=== PATIENT | female | born 1960 | race Caucasian/White ===

== ENCOUNTER → 2018-03-25 15:32 | Outpatient (CLI) | payer OTHER, SELFPAY | PROVIDERS: Family Provider Internal Medicine; PCP Internal Medicine; Referring Provider Otolaryngology Otolaryngology/Facial Plastic Surgery; Visit Provider Otolaryngology Otolaryngology/Facial Plastic Surgery | DX: J32.9 Chronic sinusitis, unspecified (principal) | CPT/HCPCS: 87070; 87205 ==

== ENCOUNTER 2020-05-02 07:27 | Outpatient (RCR) | payer OTHER, SELFPAY ==
[2016-12-10 21:54] VITALS: BMI 50.9
[2020-05-02] MEDS: COVID-19 VACC, MRNA(PFIZER)/PF 30 MCG/0.3 ML SYRINGE IM (10:30)
[2020-05-23] MEDS: COVID-19 VACC, MRNA(PFIZER)/PF 30 MCG/0.3 ML SYRINGE IM (10:50)
== END 2020-07-25 23:59 ==
LOC: IMMUN 07:27
PROVIDERS: PCP Internal Medicine; Referring Provider Family Medicine; Visit Provider Family Medicine
DX: Z23 Encounter for immunization (principal)
CPT/HCPCS: 0001A; 0002A; 91300

== ENCOUNTER 2021-02-02 10:36 | Emergency (ER) | payer OTHER, SELFPAY ==
[2021-02-02 10:37] VITALS: BP 142/72; PULSE 105; RESP 22; TEMP 36.6; O2SAT 94; BMI 54.0
--- NOTE | 2021-02-02 10:49 | EDS_ITS ---
HPI History of Present Illness Chief Complaint: Lower Extremity Injury Detail of Chief Complaint: Fall with injury to lower extremities Informant: patient Narrative Narrative: Patient presents to the emergency department via EMS after sustaining a fall. Patient states that she was trying to get into her family members vehicle who was going to take her to the [facility] [employer] as she has had some ulcerations to her lower extremities. Patient had a hard time getting into the vehicle so she was trying to get back into the house and onto her scooter when she states that her legs gave out and she fell. Patient complains of pain to both hips and both knees as well as bleeding from her left foot. She complains of pain in her left foot. She denies tracking her head or loss of consciousness. She denies any other complaints. PFSH PFSH Home Medications furosemide 40 mg PO BIDLX 07/15/13 [History Last Taken Unknown] gabapentin 200 mg PO TIDCM 07/15/13 [History Last Taken Unknown] ibuprofen 600 mg PO Q6H PRN PRN #30 tablet 07/15/13 [Rx Last Taken Unknown] levothyroxine 200 mcg PO DAILY 07/15/13 [History Last Taken Unknown] metoprolol tartrate 25 mg PO DAILY 07/15/13 [History Last Taken Unknown] multivitamin with folic acid [Thera] 1 tab PO DAILY 07/15/13 [History Last Taken Unknown] potassium chloride [Klor-Con M20] 20 meq PO DAILY 07/15/13 [History Last Taken Unknown] spironolactone 25 mg PO DAILY 07/15/13 [History Last Taken Unknown] gabapentin 200 mg PO QHS PRN 12/10/16 [History Last Taken Unknown] letrozole [Femara] 2.5 mg PO DAILY 12/10/16 [History Last Taken Unknown] Allergy/AdvReac Type Severity Reaction Status Date / Time diphenhydramine HCl Allergy HEART Verified 02/02/21 10:37 [From Benadryl] RACES levofloxacin [From Levaquin] Allergy HEART Verified 02/02/21 10:37 RACE AND FEELS SOB oxytocin [From Pitocin] AdvReac FLOATING Verified 02/02/21 10:37 FEELING ENVIROMENTAL AdvReac Other Uncoded 02/02/21 10:37 Social History Smoking Status: Former smoker ROS ROS ED Constitutional Constitutional ED: Reports systems reviewed and no addt'l complaints, except as documented; Denies body ache(s), change in weight or chills Eyes Eyes: Denies acute decrease in peripheral vision, change in vision, double vision or loss of vision ENT ENT ED: Reports none; Denies ear pain, lip swelling, loss taste/smell, neck pain, otalgia or sore throat Cardiovascular Cardiovascular: Reports none; Denies abdominal pain, chest pain with activity, leg edema, lightheadedness, palpitations, rapid heart rate or syncope Respiratory/Chest Respiratory/Chest: Reports none; Denies change in mental status, dry cough, dyspnea, hemoptysis, shortness of breath at rest or shortness of breath with exertion Gastrointestinal Gastrointestinal: Reports none; Denies abdominal pain, change in stool character, diarrhea, hematemesis, hematochezia, melena, rectal bleeding or vomiting Genitourinary Genitourinary ED: Reports none; Denies abdominal discomfort, anuria, dysuria, genital pain or polyuria Musculoskeletal Musculoskeletal: Reports none and other Details: Bilateral hip and knee pain as well as left foot pain ; Denies arthralgias, back pain, difficulty walking, extremity pain, muscle weakness or myalgias Integumentary Reports none; Denies abscess or rash Neurologic Neurologic: Reports none; Denies abnormal gait, confusion, focal weakness, frequent falls, headache(s), loss of vision, numbness, paresthesias, radicular pain, vertigo or weakness Psychiatric Psychiatric: Reports systems reviewed and no addt'l complaints, except as docum ented and none; Denies behavioral changes, confusion, difficulty concentrating, hallucinations, suicidal ideation, tactile hallucinations or visual hallucinations Endocrine Endocrinology: Denies none, cold intolerance, excessive sweating, fatigue or heat intolerance Hematologic/Lymphatic Hematologic/Lymphatic: Reports none; Denies anemia, easy bleeding or easy bruising Allergic/Immunologic Allergic/Immunologic ED: Denies as per HPI, none, lip swelling, mouth swelling, throat swelling, tongue swelling or hives EXAM Physical Exam Const Vital Signs: 02/02/21 10:37 02/02/21 13:23 Temperature 97.9 F Temperature Source Oral Pulse Rate 105 H 96 Respiratory Rate 22 H Blood Pressure 142/72 H 121/64 H Blood Pressure Mean 95 83 Pulse Ox 94 91 Oxygen Delivery Method Room Air Nasal Cannula Oxygen Flow Rate (L/min) 4 Positive well nourished and well developed General Appearance ED: well developed and NAD HEENT Reports TM's clear and moist mucous membranes normocephalic and atraumatic; Negative for trauma or tenderness Tympanic Membrane ED: Yes TM's clear Eyes PERRL and EOMs intact bilaterally General Eye ED: Negative for pale conjunctiva or scleral icterus Neck no lymphadenopathy, supple and no JVD General: Negative for tenderness Chest Wall inspection of chest normal and palpation of chest normal Chest: Negative for tenderness Resp normal respiratory effort and clear to auscultation bilaterally Effort and Inspection: Negative for respiratory distress or pain with movement Auscultation: Negative for rhonchi, wheezes or diminished lung sounds Cardio regular rate, regular rhythm, S1 normal heart sound, S2 normal heart sound and no murmurs Peripheral Pulses: pulses 2+ throughout GI normal to inspection, nondistended, normoactive bowel sounds, soft to palpation, non-tender, non-distended and no masses GI Narrative: Patient morbidly obese Back/Spine no CVA tenderness and no thoracic nor lumbar tenderness Extremity normal to inspection General Extremety ED: Negative for edema General Extremity: Negative for edema Neuro oriented x3, CN's II-XII intact bilaterally, no sensory deficits noted and gait normal Sensorium / Orientation: awake, alert, oriented to person, oriented to place and oriented to time Motor Exam: strength 5/5 throughout and strength abnormal Psych mental status grossly normal Skin no wounds Skin Narrative: Patient has thickening of the skin of both lower extremities from below the knee down to the ankles. Patient has tenderness diffusely about both left hips with no shortening or rotational deformity noted. Patient has pain with palpation of bilateral knees without any effusions noted. Limited range of motion secondary to pain bilaterally. Patient has diffuse tenderness over the left foot. She has superficial skin avulsion to the plantar aspect of the first MTP joint. No lacerations otherwise. Neurovascular intact. MDM MDM MDM Narrative Medical decision making narrative: Patient will have her wound cleansed on her left foot and clean dressings will be applied. Patient was given 1 dose of [place] p.o. Patient will continue with her meds at home. Patient to follow-up with her primary care physician in 3 to 5 days. Patient is to reschedule her dermatology appointment. Lab Data Attestation: I reviewed the patient's lab results. Radiography Diagnostic Testing: Clinical Impression(s) from Imaging Studies Foot X-Ray 02/02/21 12:37 Hip/Pelvis X-Ray 02/02/21 12:37 Knee X-Ray 02/02/21 12:37 Ribs w/Chest X-Ray 02/02/21 12:37 X-rays of left ribs and PA chest obtained interpreted by myself as no acute rib fractures and chronic interstitial lung changes. Radiology was in agreement. Patient had left foot x-rays interpreted by myself as no acute fractures. Radiology in agreement. Patient had x-rays of the bilateral hips as well as pelvis which were interpreted by myself as no acute fractures. Radiology in agreement. Patient also had x-rays of bilateral knees which were interpreted by myself as no acute fractures and did show degenerative changes. Radiology in agreement. Discharge Plan Triage Chief Complaint: Lower Extremity Injury ED Provider: Fadia Rincon Dx/Rx/DC Orders Clinical Impression: Fall, Sprain of foot, left, Hip strain, Knee sprain Instructions: ED Foot Sprain, ED Hip Strain, ED Knee Sprain, ED Skin Avulsion Prescriptions: No Action furosemide 40 MG tablet 40 mg PO BIDLX RF: 0 spironolactone 25 MG tablet 25 mg PO DAILY RF: 0 potassium chloride [Klor-Con M20] 20 MEQ Tab.Er.Prt 20 meq PO DAILY RF: 0 levothyroxine 150 MCG tablet 200 mcg PO DAILY RF: 0 gabapentin 100 MG capsule 200 mg PO TIDCM RF: 0 metoprolol tartrate 25 MG tablet 25 mg PO DAILY RF: 0 multivitamin with folic acid [Thera] 1 TABLET tablet 1 tab PO DAILY RF: 0 ibuprofen 600 MG tablet 600 mg PO Q6H PRN PRN (Reason: Pain) Qty: 30 RF: 0 gabapentin 100 MG capsule 200 mg PO QHS PRN (Reason: Pain) RF: 0 letrozole [Femara] 2.5 MG tablet 2.5 mg PO DAILY RF: 0 Primary Care Provider: Lidya Mathias Referrals: Lidya Mathias MD [Primary Care Provider] - 3-5 Days Disposition Disposition: Home, Self Care
[2021-02-02] MEDS: HYDROcodone Bitartrate/Apap 5/325 Tablet PO (11:20)
[2021-02-02] MEDS: Diphth,Pertuss(Acell),Tet Vac 0.5 ML Vial IM (11:21)
--- NOTE | 2021-02-02 11:32 | ED.RN ---
Patient did not tolerate laying flat for xray, came back from radiology to be medicated prior to trying to complete films.
--- NOTE | 2021-02-02 12:37 | RAD_ITS ---
History: Trauma Left foot 2 views: Findings. No acute fracture or dislocation. No joint space abnormality. Posterior calcaneal enthesopathy. Soft tissue swelling noted. No radiopaque foreign body. IMPRESSION: Soft tisuue swelling. at 1310 Reported and signed by: Kevon Goodwin MD Electronically Signed: Kevon Goodwin MD at 13:08 EST Tel , Service support , RAD/Foot 2 Views
--- NOTE | 2021-02-02 12:37 | RAD_ITS ---
History: rib pain Chest and left ribs 5 views: Findings: Diffuse interstitial pulmonary densities noted which may represent chronic fibrosis. Cardiomediastinal silhouette is normal. No pneumothorax or hydrothorax. No rib fracture identified. IMPRESSION: Interstitial lung disease which may represent chronic fibrosis. Intact left ribs. at 1319 Reported and signed by: Kevon Goodwin MD Electronically Signed: Kevon Goodwin MD at 13:18 EST Tel , Service support , RAD/Ribs Uni Min 3V w/PA Chest
--- NOTE | 2021-02-02 12:37 | RAD_ITS ---
History: Trauma AP pelvis and bilateral hips, 5 views: Findings: No fracture or subluxation. Joint spaces and soft tissues are normal. IMPRESSION: No acute abnormality. at 1321 Reported and signed by: Kevon Goodwin MD Electronically Signed: Kevon Goodwin MD at 13:19 EST Tel , Service support , RAD/Hips B/L min 2 views w/ Pelvis
--- NOTE | 2021-02-02 12:37 | RAD_ITS ---
History: Trauma Left knee 2 views: Findings: No acute fracture, subluxation or joint effusion. Marked narrowing of the compartments of the knee joint associated with osteophytosis. IMPRESSION: No acute bone or joint abnormality. Advanced osteoarthritic changes. at 1318 Reported and signed by: Kevon Goodwin MD Electronically Signed: Kevon Goodwin MD at 13:17 EST Tel , Service support , RAD/Knee 1 or 2 Views
--- NOTE | 2021-02-02 12:37 | RAD_ITS ---
History: Trauma Right knee 2 views: Findings: No acute fracture, subluxation or joint effusion. Significant narrowing of the medial and lateral knee joint compartments. Moderate bony hypertrophy. IMPRESSION: No acute abnormality. Prominent osteoarthritic changes. at 1336 Reported and signed by: Kevon Goodwin MD Electronically Signed: Kevon Goodwin MD at 13:35 EST Tel , Service support , RAD/Knee 1 or 2 Views
[2021-02-02 13:23] VITALS: BP 121/64; PULSE 96; O2SAT 91
[2021-02-02 14:00] VITALS: PULSE 94; O2SAT 91
== END 2021-02-02 14:26 | disposition home or self-care (01) ==
PROVIDERS: Emergency Provider Emergency Medicine; PCP Internal Medicine
DX: S93.602A Unspecified sprain of left foot, initial encounter (principal); S83.92XA Sprain of unspecified site of left knee, initial encounter; S76.019A Strain of muscle, fascia and tendon of unspecified hip, initial encounter; M25.561 Pain in right knee; Z23 Encounter for immunization; V48.4XXA Person boarding or alighting a car injured in noncollision transport accident, initial encounter; Y93.9 Activity, unspecified; Y92.9 Unspecified place or not applicable; Y99.9 Unspecified external cause status; Z79.890 Hormone replacement therapy; Z79.899 Other long term (current) drug therapy; E66.01 Morbid (severe) obesity due to excess calories; Z87.891 Personal history of nicotine dependence
CPT/HCPCS: 71101; 73521; 73560; 73620; 90715; 99285

== ENCOUNTER 2021-02-06 17:07 | Inpatient (IN) | payer OTHER, SELFPAY ==
[2021-02-06] VITALS (7 sets, daily range): BP systolic 130–151; BP diastolic 63–84; PULSE 82–87; RESP 20–29; TEMP 36.4–37.4; O2SAT 93–99; BMI 58.3; BMI 54.3
--- NOTE | 2021-02-06 17:43 | EKG12_ITS ---
Test Reason : Blood Pressure : / mmHG Vent. Rate : 080 BPM Atrial Rate : 080 BPM P-R Int : 156 ms QRS Dur : 102 ms QT Int : 392 ms P-R-T Axes : 056 -65 019 degrees QTc Int : 452 ms Normal sinus rhythm Left axis deviation Low voltage QRS Incomplete left bundle branch block Abnormal ECG Confirmed by COOKIE RIZO, TERRENCE ([id number]), metropolitan editor BOBBI NEVAREZ ([id number]) on 02/12/2021 10:21:13 AM Referred By: BORIS Confirmed By:TERRENCE GARY MD
--- NOTE | 2021-02-06 17:46 | EDS_ITS ---
HPI History of Present Illness Chief Complaint: Shortness of Breath Informant: patient and family Onset/Context/Timing Onset: Days Context: gradual Timing: Continuous Quality: Positive for Dyspnea on exertion and Wheezing Current Severity: Mild Maximum Severity: Mild Worsened by: Exertion, Lying flat and Coughing Associated Symptoms cough Chest Pain: Positive for Sharp Narrative Narrative: 61-year-old female history of diabetes, prior breast cancer, prior uterine cancer, prior DVTs and diabetic neuropathy. Patient tested Covid positive recently after her tested positive. She has been vaccinated with [employer] x2 has not received her booster as of yet. States that she has become more short of breath. Has left rib pain from recent fall. Denies any hemoptysis. PE Risk Factors: Positive for Prior DVT or PE and Recent immobilization; Negative for Cancer, OCP + Smoking + > 35, Recent surgery and Recent travel Prior similar symptoms: No Recent Illness/Hospitalization: Yes PFSH PFS Medical History Cancer Diabetes DVT (deep venous thrombosis) Hypertension Hypothyroidism Non-smoker On home oxygen therapy Home Medications furosemide 40 mg PO BIDLX 07/15/13 [History Last Taken Unknown] gabapentin 200 mg PO TIDCM 07/15/13 [History Last Taken Unknown] ibuprofen 600 mg PO Q6H PRN PRN #30 tablet 07/15/13 [Rx Last Taken Unknown] levothyroxine 200 mcg PO DAILY 07/15/13 [History Last Taken Unknown] metoprolol tartrate 25 mg PO DAILY 07/15/13 [History Last Taken Unknown] multivitamin with folic acid [Thera] 1 tab PO DAILY 07/15/13 [History Last Taken Unknown] potassium chloride [Klor-Con M20] 20 meq PO DAILY 07/15/13 [History Last Taken Unknown] spironolactone 25 mg PO DAILY 07/15/13 [History Last Taken Unknown] gabapentin 200 mg PO QHS PRN 12/10/16 [History Last Taken Unknown] letrozole [Femara] 2.5 mg PO DAILY 12/10/16 [History Last Taken Unknown] Allergy/AdvReac Type Severity Reaction Status Date / Time diphenhydramine HCl Allergy HEART Verified 02/02/21 10:37 [From Benadryl] RACES levofloxacin [From Levaquin] Allergy HEART Verified 02/02/21 10:37 RACE AND FEELS SOB oxytocin [From Pitocin] AdvReac FLOATING Verified 02/02/21 10:37 FEELING ENVIROMENTAL AdvReac Other Uncoded 02/02/21 10:37 Surgical History History of reduction surgery of left breast Social History Smoking Status: Never smoker ROS ROS ED ROS Narrative Dyspnea, myalgias, fevers and chills. Review of Systems ROS Unobtainable: Denies due to encephalopathy Constitutional Constitutional ED: Reports chills and fever(s) Eyes Eyes: Denies change in vision ENT ENT ED: Denies ear pain or sore throat Cardiovascular Cardiovascular: Reports chest pain; Denies palpitations or racing heartbeat Respiratory/Chest Respiratory/Chest: Reports cough and dyspnea Gastrointestinal Gastrointestinal: Denies abdominal pain, diarrhea, nausea or vomiting Genitourinary Genitourinary ED: Denies dysuria Musculoskeletal Musculoskeletal: Reports myalgias Integumentary Reports rash Neurologic Neurologic: Reports headache(s) Psychiatric Psychiatric: Denies depression Endocrine Endocrinology: Denies polyuria Hematologic/Lymphatic Hematologic/Lymphatic: Denies easy bruising Allergic/Immunologic Allergic/Immunologic ED: Denies urticaria EXAM Physical Exam Narrative Exam Narrative: 61-year-old female pulse ox was 73% at home when she was on room air. Currently its 98% on 4 L. She does not look septic or toxic. H EENT exam druggies memories. Neck nontender. Lungs few scattered wheezes. Expiratory only. Heart regular rhythm rate about 85 no murmur. Abdomen morbidly obese but soft nontender normal bowel sounds no peritoneal signs. Moving all 4 extremities. Chronic bilateral lymphedema. Neurologically she is awake and alert. Moving all 4 extremities. Const Vital Signs: 02/06/21 17:08 02/06/21 17:12 02/06/21 18:22 Temperature 98.6 F 98.6 F 99.3 F H Temperature Source Oral Oral Oral Pulse Rate 85 84 84 Respiratory Rate 29 H 24 H 26 H Respiratory Effort Short of Breath Respiratory Depth Normal Respiratory Pattern Normal Blood Pressure 132/75 H 132/75 H 135/68 H Blood Pressure Mean 94 94 90 Pulse Ox 98 99 95 Oxygen Delivery Method Nasal Cannula Nasal Cannula Nasal Cannula Oxygen Flow Rate (L/min) 4 4 5 02/06/21 19:22 02/06/21 20:22 Temperature 97.6 F L 98 F Temperature Source Oral Oral Pulse Rate 83 87 Respiratory Rate 24 H 22 H Respiratory Effort Respiratory Depth Respiratory Pattern Blood Pressure 135/65 H 139/63 H Blood Pressure Mean 88 88 Pulse Ox 96 93 Oxygen Delivery Method Nasal Cannula Nasal Cannula Oxygen Flow Rate (L/min) 5 5 Positive well nourished, well developed and obese; Negative for cachectic, contractures or unkempt General Appearance ED: well developed and NAD; Negative for unkempt, cachectic, contractures or pallor Nutritional Appearance: obese; Negative for cachectic HEENT Reports dry mucous membranes atraumatic; Negative for trauma or tenderness Mouth ED: Yes dry mucous membranes Mouth: dry mucous membranes Eyes PERRL and EOMs intact bilaterally Neck no lymphadenopathy, supple and no JVD General: Negative for tenderness Resp normal respiratory effort and No clear to auscultation bilaterally Auscultation: wheezes; Negative for rales or rhonchi Cardio regular rate, regular rhythm, S1 normal heart sound, S2 normal heart sound and no murmurs GI non-tender, non-distended and no masses Auscultation: normoactive bowel sounds Palpation: soft; Negative for tender, guarding or rebound tenderness present Back/Spine no CVA tenderness and normal to inspection General Back: Negative for CVA tenderness or tenderness Extremity Negative for normal to inspection Extremity Narrative: Chronic bilateral lymphedema. General Extremety ED: Yes edema; Negative for tenderness General Extremity: edema Neuro oriented x3 Sensorium / Orientation: alert, oriented to person, oriented to place, oriented to time and lethargic; Negative for orientation impaired or confused Motor Exam: strength 5/5 throughout Psych Appearance: Negative for unkempt Skin no wounds General Skin Exam: Negative for jaundice or pallor Lesions: no lesions Rashes: no rashes MDM MDM MDM Narrative Medical decision making narrative: 61-year-old morbidly obese female with a history of diabetes and prior DVTs. If she is stable enough to be discharged home she will at least need home O2 if not admitted. Screening labs are being obtained along with a chest x-ray D-dimer. She will be given IV Decadron. Clinically she looks a little dehydrated she will be given half a liter normal saline. Repeat exam patient is on 5 L of oxygen. Lab Data Attestation: I reviewed the patient's lab results. Lab results narrative: CBC shows a white count of 6. Hemoglobin of 10.2. Which is decreased from her most recent blood count with a hemoglobin of 13.2. Platelet count 131. D-dimer elevated 1.37. Electrolytes show a gap of 4 normal BUN and creatinine. Glucose 145. Liver enzymes are unremarkable as is troponin. CT of the chest is obtained due to the elevated D-dimer. Consistent with Covid pneumonitis but no pulmonary emboli. Read by the radiologist and reviewed by me. Labs: Laboratory Results - last 24 hr 02/06/21 02/06/21 02/06/21 17:55 17:55 17:55 WBC 6.0 RBC 3.52 L Hgb 10.2 L Hct 35.1 L MCV 99.7 H MCH 29.0 MCHC 29.1 L RDW Std Deviation 57.9 H RDW Coeff of Danielle 16.1 H Plt Count 131 L MPV 11.1 Immature Gran % (Auto) 0.800 Neut % (Auto) 81.6 H Lymph % (Auto) 10.0 L Swain % (Auto) 6.0 Eos % (Auto) 1.3 Baso % (Auto) 0.3 Absolute Neuts (auto) 4.9 Absolute Lymphs (auto) 0.60 L Nucleated RBC % 0 Differential Comment SEE COMMENT Platelet Estimate SLT DEC RBC Morphology N CHROM Anisocytosis RARE Macrocytosis RARE D-Dimer Quant (PE/DVT) 1.37 H* Sodium 140 Potassium 4.2 Chloride 103 Carbon Dioxide 33.0 H Anion Gap 4 L BUN 13 Creatinine 0.87 Estim Creat Clear Calc 71.57 Est GFR (MDRD) Af Amer 84 Est GFR (MDRD) Non-Af 70 BUN/Creatinine Ratio 14.9 Glucose 145 H Calcium 8.2 L Total Bilirubin 0.50 AST 27 ALT 29 Alkaline Phosphatase 72 Troponin I High Sens 33 Total Protein 7.4 Albumin 2.9 L Globulin 4.5 H Albumin/Globulin Ratio 0.6 L Radiography Chest X-Ray - ED: 1 View, Read by ED Physician, Right Infiltrate and Left Infiltrate Diagnostic Testing: Clinical Impression(s) from Imaging Studies Chest X-Ray 02/06/21 18:20 IMPRESSION: Findings are consistent with bilateral multifocal pneumonia. Electronically Signed: Ketty South MD at 19:37 EST , Service support , Chest CTA 02/06/21 18:33 IMPRESSION: 1. No CTA demonstrated pulmonary embolism or arterial dissection. 2. Mediastinal and hilar lymphadenopathy. 3. Multifocal airspace disease suggests multifocal pneumonia. Suggest follow-up after treatment to exclude underlying neoplasia. Electronically Signed: Ketty South MD at 20:46 EST , Service support , Chest x-ray shows bilateral infiltrates consistent with Covid pneumonitis. Also some interstitial edema. Single view interpreted by myself. Rhythm Strip Rhythm Strip: Sinus Rhythm Rate: 80 Ectopy: None EKG Initial EKG: Attestation: I personally reviewed and interpreted this EKG as follows: Interpretation: Sinus Rhythm and No Acute Injury Pattern Comments: Normal sinus rhythm rate 80 no acute signs of DC or ischemia. Low voltage. Prior EKG tracings: not available for review Discharge Plan Triage Chief Complaint: Shortness of Breath ED Provider: Andrei Martínez Dx/Rx/DC Orders Clinical Impression: COVID-19, Pneumonitis, Hypoxia, History of morbid obesity, History of diabetes mellitus Prescriptions: No Action furosemide 40 MG tablet 40 mg PO BIDLX RF: 0 spironolactone 25 MG tablet 25 mg PO DAILY RF: 0 potassium chloride [Klor-Con M20] 20 MEQ tablet,ER particles/crystals 20 meq PO DAILY RF: 0 levothyroxine 150 MCG tablet 200 mcg PO DAILY RF: 0 gabapentin 100 MG capsule 200 mg PO TIDCM RF: 0 metoprolol tartrate 25 MG tablet 25 mg PO DAILY RF: 0 multivitamin with folic acid [Thera] 1 TABLET tablet 1 tab PO DAILY RF: 0 ibuprofen 600 MG tablet 600 mg PO Q6H PRN PRN (Reason: Pain) Qty: 30 RF: 0 gabapentin 100 MG capsule 200 mg PO QHS PRN (Reason: Pain) RF: 0 letrozole [Femara] 2.5 MG tablet 2.5 mg PO DAILY RF: 0 Primary Care Provider: Lidya Mathias Referrals: Lidya Mathias MD [Primary Care Provider] - Disposition Disposition: Acute Care [facility]
[2021-02-06 18:05] LABS: Absolute Neutrophil Count 4.9 X10^3/uL (2.0-7.7); Basophil# 0.02 X10^3/uL; Basophil% 0.3 % (0-1); Eosinophil# 0.08 X10^3/uL; Eosinophils% 1.3 % (0-5); Hematocrit 35.1 % (37-47); Hemoglobin 10.2 g/dL (12.0-15.0); Mean Corp Hgb Conc 29.1 g/dL (32-36); Mean Corpuscular Volume 99.7 fL (81-99); Mean Platelet Vol. 11.1 fl (6.2-12.0); Monocyte# 0.36 X10^3/uL; NRBC Flagged by Analyzer 0 % (0-5); Neutrophil # 4.89 X10^3/uL (2.7-7.7); Neutrophil % 81.6 % (47-70); POSITIVE DIFFERENTIAL YES; Platelet Count 131 K/mm3 (150-450); RBC Distribution Width CV 16.1 % (11.6-14.6); RBC Distribution Width SD 57.9 fl (35.1-43.9); Red Blood Count 3.52 M/mm3 (4.2-5.4)
[2021-02-06 18:09] LABS: Differential Indicated SCAN CRITERIA MET
[2021-02-06 18:20] LABS: ALB/GLOB Ratio 0.6 RATIO (0.9-2.4); AST(SGOT) 27 U/L (15-37); Alanine Aminotransfer ALT/SGPT 29 U/L (13-56); Albumin, Serum 2.9 g/dL (3.2-5.0); Alkaline Phosphatase 72 U/L (45-117); Anion Gap 4 (5-15); BUN 13 mg/dL (7-18); BUN/Creat Ratio 14.9 RATIO (10-20); Calcium,Total 8.2 mg/dL (8.5-10.1); Chloride 103 mmol/L (98-107); Creatinine, Serum 0.87 mg/dL (0.55-1.02); EST Glomerular Filtration Rate 70 mL/min (>60); Est Glom Filt Rate - Afr Amer 84 mL/min (>60); Estimated Creatinine Clearance 71.57 ml/min; Globulin 4.5 g/dL (2.2-4.2); Glucose 145 mg/dL (74-106); Potassium 4.2 mmol/L (3.5-5.1); Protein, Total 7.4 g/dL (6.4-8.2); Sodium Level 140 mmol/L (136-145); Troponin-I HS 33 pg/mL (3.0-54.0)
[2021-02-06] MEDS: dexAMETHasone 10 MG/ML Vial IV (18:20)
--- NOTE | 2021-02-06 18:20 | RAD_ITS ---
STUDY: X-RAY CHEST REASON FOR EXAM: Female, 61 years old patient with COVID infection and hypoxia. TECHNIQUE: Single AP portable view of the chest. COMPARISON: 02/02/2021. FINDINGS: Cardiac monitoring leads are present. Lungs are expanded. There are bilateral heterogeneous airspace consolidations in both lungs. There is no demonstrated pleural abnormality. There is mild cardiac enlargement. Normal mediastinum and jayesh. Normal visualized pulmonary arteries. There is atherosclerotic tortuosity of the aortic arch and descending thoracic aorta. There are diffuse degenerative changes of the visualized thoracic spine. Normal visualized ribs, clavicles, and shoulders. There is no demonstrated abnormality of the visualized soft tissue structures of the upper abdomen. RAD/Chest 1 View (Portable) IMPRESSION: Findings are consistent with bilateral multifocal pneumonia. Electronically Signed: Ketty South MD at 19:37 EST , Service support ,
[2021-02-06 18:28] LABS: D-Dimer Quantitative (DVT/PE) 1.37 FEU/ug/m (0.27-0.49)
[2021-02-06 18:31] LABS: Anisocytosis RARE; Macrocytosis RARE; Platelet Estimate SLT DEC (ADEQ); Red Cell Morphology N CHROM NORMAL (NORM C&C)
--- NOTE | 2021-02-06 18:33 | CT_ITS ---
STUDY: CTA CHEST REASON FOR EXAM: Female, 61 years old patient with hypoxia and elevated D-Dimer. RADIATION DOSAGE (If Supplied By Facility): CTDIvol = ( 25.73 ) mGy, DLP = ( 528.77 ) mGycm TECHNIQUE: The examination was performed with the intravenous administration of 100 ml of IV Isovue 370. Post-processing of the angiographic images was performed, with multiplanar reformation and 3D reconstruction. Individualized dose optimization techniques were used for this CT. COMPARISON: Prior comparable comparison studies are not available for review at this time. FINDINGS: Cardiac monitoring leads are present. The thyroid is enlarged. Patient has right-sided breast prosthesis. Normal enhancement of the main pulmonary artery and right and left pulmonary arteries. Normal enhancement of the bilateral peripheral pulmonary arteries. There is no demonstrated pulmonary embolism. There is prominence of the main pulmonary arteries without peripheral pulmonary vascular congestion. There is atherosclerotic tortuosity of the aortic arch and descending thoracic aorta. There is no demonstrated aortic dissection. There is cardiomegaly. There are calcifications of the coronary arteries. There may be enlarged subcarinal nodes. There are enlarged bilateral hilar lymph nodes. There is severe narrowing of the trachea at the level of the [place] suggesting chondromalacia. The mainstem bronchi are also small in caliber. There are multiple airspace consolidations in both lungs. Some areas appear somewhat nodular and associated metastasis cannot be excluded. Lungs are expanded. Normal pleura. There may be some enlarged accessory vessels in the chest wall. There are degenerative changes of thoracic spine. Normal visualized upper abdomen. CT/CTA Chest W/WO Contrast IMPRESSION: 1. No CTA demonstrated pulmonary embolism or arterial dissection. 2. Mediastinal and hilar lymphadenopathy. 3. Multifocal airspace disease suggests multifocal pneumonia. Suggest follow-up after treatment to exclude underlying neoplasia. Electronically Signed: Ketty South MD at 20:46 EST , Service support ,
[2021-02-06] MEDS: LORazepam 2 MG/ML Syringe 1 MG IV (19:00)
--- NOTE | 2021-02-06 20:25 | ED.RN ---
PATIENT UP TO BEDSIDE COMMODE. PATIENTS OXYGEN SATURATION DROPPED TO 84% ON 4L. ONCE PATIENT BACK IN BED OXYGEN SATURATION QUICKLY RETURNED TO LOW 90'S.
--- NOTE | 2021-02-06 21:10 | HP.PCM.HOS_ITS ---
HPI - General General Date of Admission: 02/06/21 HPI Narrative YASMANI MCLAIN, is a 61 F with a significant history of congestive heart failure; hypertension; diabetes mellitus and hypothyroidism who presents to the emergency department with progressive worsening Covid-like symptoms are started about a week ago. Of note patient has received 2 doses of Pfizer vaccination with last dose around April or May 2020. Reportedly she has not been able to receive the booster dose because of transportation issues. She reports a Covid-like symptoms of shortness of breath; productive cough; dy sgeusia; chills without fever. Her oxygen saturation on room air was about 73% so PCPs office was called and family was instructed to bring patient to come to the emergency department. Reportedly she fell a week before presentation and has pain at her left ribs. Patient reports blood at the rectal area. She denies blood in the stool. She thinks that the blood is from her hemorrhoids. Of note previously patient was on oxygen secondary pneumonia but she was weaned down to oxygen about a month prior to presentation. On this presentation at the the emergency department patient required oxygen. Of note patient's has been admitted to our hospital ([facility]) with COVID-19 pneumonia. Reportedly patient tested positive at [facility] 2 days before presentation. REPLACED BY [facility] Medical History Cancer Diabetes DVT (deep venous thrombosis) Hypertension Hypothyroidism Non-smoker On home oxygen therapy Home Medications furosemide 40 mg PO BIDLX 07/15/13 [History Last Taken Unknown] gabapentin 200 mg PO TIDCM 07/15/13 [History Last Taken Unknown] ibuprofen 600 mg PO Q6H PRN PRN #30 tablet 07/15/13 [Rx Last Taken Unknown] levothyroxine 200 mcg PO DAILY 07/15/13 [History Last Taken Unknown] metoprolol tartrate 25 mg PO DAILY 07/15/13 [History Last Taken Unknown] multivitamin with folic acid [Thera] 1 tab PO DAILY 07/15/13 [History Last Taken Unknown] potassium chloride [Klor-Con M20] 20 meq PO DAILY 07/15/13 [History Last Taken Unknown] spironolactone 25 mg PO DAILY 07/15/13 [History Last Taken Unknown] gabapentin 200 mg PO QHS PRN 12/10/16 [History Last Taken Unknown] letrozole [Femara] 2.5 mg PO DAILY 12/10/16 [History Last Taken Unknown] Allergy/AdvReac Type Severity Reaction Status Date / Time diphenhydramine HCl Allergy HEART Verified 02/02/21 10:37 [From Benadryl] RACES levofloxacin [From Levaquin] Allergy HEART Verified 02/02/21 10:37 RACE AND FEELS SOB oxytocin [From Pitocin] AdvReac FLOATING Verified 02/02/21 10:37 FEELING ENVIROMENTAL AdvReac Other Uncoded 02/02/21 10:37 Family History Other Diabetes Surgical History History of reduction surgery of left breast Social History Smoking Status: Never smoker ROS ROS Narrative Constitutional: Reports chills, fatigue and anorexia. Denies fever and change in weight Eyes: Denies blurry vision, change in eye color, change in vision, discharge from eye(s), double vision, erythema, eye pain, loss of vision or other HEENT: Denies abnormal hearing, dysphagia, ear pain, epistaxis, headache(s), hearing loss, nasal congestion, nasal discharge, post nasal drip, sinus pressure, sore throat or other Cardiovascular: Denies chest pain or palpitations. Denies dyspnea on exertion, orthopnea and paroxysmal nocturnal dyspnea Respiratory/Chest: Reports shortness of breath; cough, excessive phlegm production. Gastrointestinal: Reports blood from rectum. Denies abdominal pain, coffee ground emesis, constipation, diarrhea, dyspepsia, hematemesis, loose stools, melena, nausea, vomiting or other Genitourinary: Denies burning urination, difficulty urinating, dysuria, hematuria, nocturia, urinary frequency, urinary hesitancy, urinary incontinence, urinary urgency or other Musculoskeletal:Oozing from left leg. Denies arthralgias, back pain, joint cecilia n, joint stiffness, joint swelling, myalgias, neck pain or other Neurologic: Denies abnormal gait, abnormal speech, confusion, disequilibrium, dizziness, focal weakness, headache(s), numbness, paresthesias, seizure-like activity, seizures, syncope, tingling, tremor(s) or other Psychiatric: Denies anxiety, depression, homicidal ideation, suicidal ideation or other Endocrinology: Denies change in body appearance, cold intolerance, excessive sweating, heat intolerance, polydipsia, polyuria or other Hematologic/Lymphatic: Denies anemia, lymphadenopathy or other Integumentary: Denies rashes Allergic/Immunologic: Denies rhinitis, hives, eczema, asthma or other Vital Signs Vital Signs Vital Signs: 02/06/21 17:08 02/06/21 17:12 02/06/21 18:22 Temperature 98.6 F 98.6 F 99.3 F H Temperature Source Oral Oral Oral Pulse Rate 85 84 84 Respiratory Rate 29 H 24 H 26 H Respiratory Effort Short of Breath Respiratory Depth Normal Respiratory Pattern Normal Blood Pressure 132/75 H 132/75 H 135/68 H Blood Pressure Mean 94 94 90 Pulse Ox 98 99 95 Oxygen Delivery Method Nasal Cannula Nasal Cannula Nasal Cannula Oxygen Flow Rate (L/min) 4 4 5 02/06/21 19:22 02/06/21 20:22 Temperature 97.6 F L 98 F Temperature Source Oral Oral Pulse Rate 83 87 Respiratory Rate 24 H 22 H Respiratory Effort Respiratory Depth Respiratory Pattern Blood Pressure 135/65 H 139/63 H Blood Pressure Mean 88 88 Pulse Ox 96 93 Oxygen Delivery Method Nasal Cannula Nasal Cannula Oxygen Flow Rate (L/min) 5 5 Weight Weight: 184.6 kg Body Mass Index (BMI) 58.3 Physical Exam Narrative Physical exam: General: Morbidly obese Head: Normocephalic, atraumatic, no tenderness Eyes: PERRLA, EOMI ENT, no trauma, moist mucous membranes, no rhinorrhea Neck: Nontender, full range of motion, no spinal tenderness, deformities, step- off CVS: Regular rate and rhythm. S1-S2 present. No murmur, gallop or rub. Respiratory : Rales. chest wall nontender, no wheezing Abdomen: Soft, nontender, nondistended, normal bowel sounds, no masses : Deferred Back: Nontender, no CVA tenderness, no midline spinal tenderness, deformities, step-offs Extremities: Edema of left foot. Nontender full range of motion. Skin: Normal color, no trauma, abrasions Neuro: Alert, oriented, cranial nerves II through XII grossly intact. Psychiatry: Normal mood. Normal affect. Not depressed. Not anxious. Results Lab / Micro Data Result Diagrams: 02/06/21 17:55 02/06/21 17:55 Labs: Laboratory Results - last 24 hr 02/06/21 17:55: WBC 6.0, RBC 3.52 L, Hgb 10.2 L, Hct 35.1 L, MCV 99.7 H, MCH 29.0, MCHC 29.1 L, RDW Std Deviation 57.9 H, RDW Coeff of Danielle 16.1 H, Plt Count 131 L, MPV 11.1, Immature Gran % (Auto) 0.800, Neut % (Auto) 81.6 H, Lymph % (Auto) 10.0 L, [place] % (Auto) 6.0, Eos % (Auto) 1.3, Baso % (Auto) 0.3, Absolute Neuts (auto) 4.9, Absolute Lymphs (auto) 0.60 L, Nucleated RBC % 0, Differential Comment SEE COMMENT, Platelet Estimate SLT DEC, RBC Morphology N CHROM, Anisocytosis RARE, Macrocytosis RARE 02/06/21 17:55: D-Dimer Quant (PE/DVT) 1.37 H* 02/06/21 17:55: Sodium 140, Potassium 4.2, Chloride 103, Carbon Dioxide 33.0 H, Anion Gap 4 L, BUN 13, Creatinine 0.87, Estim Creat Clear Calc 71.57, Est GFR (MDRD) Af Amer 84, Est GFR (MDRD) Non-Af 70, BUN/Creatinine Ratio 14.9, Glucose 145 H, Calcium 8.2 L, Total Bilirubin 0.50, AST 27, ALT 29, Alkaline Phosphatase 72, Troponin I High Sens 33, Total Protein 7.4, Albumin 2.9 L, Globulin 4.5 H, Albumin/Globulin Ratio 0.6 L Rhythm Strip Rhythm Strip: Sinus Rhythm Rate: 80 Ectopy: None Radiology Impression Chest X-Ray 02/06/21 18:20 IMPRESSION: Findings are consistent with bilateral multifocal pneumonia. Electronically Signed: Ketty South MD at 19:37 EST , Service support , Chest CTA 02/06/21 18:33 IMPRESSION: 1. No CTA demonstrated pulmonary embolism or arterial dissection. 2. Mediastinal and hilar lymphadenopathy. 3. Multifocal airspace disease suggests multifocal pneumonia. Suggest follow-up after treatment to exclude underlying neoplasia. Electronically Signed: Ketty South MD at 20:46 EST , Service support , Assessment & Plan Assessment/Plan (1) Pneumonia due to COVID-19 virus: (2) Acute hypoxemic respiratory failure: (3) Anemia: QUALIFIERS: Anemia type: unspecified type Qualified Code(s): D64.9 - Anemia, unspecified PLAN: Covid pneumonia Reportedly hypoxic at urgent care today with oxygen saturation of 70%. At the emergency department patient required about 5 L of nasal cannula oxygen. No documented oxygen saturation on room air. Supplemental oxygen continued. Reported positive coronavirus test outpatient. Review of community records did not show Covid test. Rapid Covid antigen ordered inpatient. Chest x-ray and chest CTA independently interpreted showed bilateral multifocal pneumonia and agree radiologist interpretation. D-dimer is elevated at 1.37 like secondary to inflammation. Decadron ordered. GFR is more than 30; liver biochemistry is normal. Remdesivir ordered. Tylenol for fever Mucinex ordered . Trend CBC and CMP. Acute anemia/hemorrhoidal bleed. Her hemoglobin presentation was 10.2. Review of community records show that her hemoglobin on 11/27/2020 was 12.1 and on 10/23/2020 was 11.7. Ferritin and iron panel is consistent with iron deficiency anemia. Venofer ordered. Trend CBC. Protonix ordered. If hemoglobin is stable further work-up can be done after the patient is out of Covid precautions. Diabetes mellitus with polyneuropathy Patient with hyperglycemia on presentation Review of community records show that her A1c on 11/27/2020 was 7.5. With starting patient on Decadron anticipate that her blood glucose would be higher. Accu-Chek QA CHS with correction scale insulin ordered. Hypertension Blood pressure is not within goal Metoprolol, Lasix and spironolactone continued. Trend blood pressure and adjust blood pressure medications. Hypothyroidism Thyroid supplementation continued. History of congestive heart failure No echocardiogram on file. Currently hypoxic requiring oxygen supplementation.. Likely symptoms from Covid pneumonia. Lasix and spironolactone continued. DVT prophylaxis: SCD ordered. Chemical thromboprophylaxis held secondary to rectal hemorrhage. Charges/Coding Visit Charges Inpatient E&M: 23182 Init Hosp L3
--- NOTE | 2021-02-06 23:07 | PCS.PANDOC ---
PANDEMIC DOCUMENTATION INITIATED: Date: 02/06/2021 Time: 2300
[2021-02-06] MEDS: 0.9% Saline Lock 10 ML Syringe IV (23:35)
[2021-02-06] MEDS: Insulin Lispro 100 UNIT/ML INSULN.PEN SC (23:48)
[2021-02-07] VITALS (15 sets, daily range): BP systolic 133–154; BP diastolic 71–92; PULSE 78–90; RESP 20–24; TEMP 36.6–36.8; O2SAT 84–97
[2021-02-07 00:03] LABS: Ferritin 37 ng/mL (8-252); Iron 20 ug/dL (50-170); Iron Binding Capacity,Total 293 ug/dL (250-450); PERCENT IRON SATURATION 6.8 % (15.0-55.0)
--- NOTE | 2021-02-07 00:24 | NURSING ---
attempted to return call to pt's daughter, ysabel [phone], no answer and sent to an automated voicemail
[2021-02-07 01:09] LABS: Immature Platelet Fraction 6.9 % (1.0-7.9); Platelet Count 131 K/mm3 (150-450)
[2021-02-07 01:41] LABS: Bedside Glucose 247 mg/dL (70-110)
[2021-02-07] MEDS: guaiFENesin 1,200 MG Tablet 1200 MG PO (04:09)
[2021-02-07] MEDS: Nystatin Powder 15gm Bottle 1 APPLIC TOPICAL ×2 (04:16→22:00)
[2021-02-07] MEDS: Insulin Lispro 100 UNIT/ML INSULN.PEN SC ×3 (07:00→16:42)
[2021-02-07 07:05] LABS: Absolute Lymphocyte Count 0.47 X10^3/uL (0.83-4.51); Absolute Neutrophil Count 4.6 X10^3/uL (2.0-7.7); Hematocrit 36.3 % (37-47); Hemoglobin 10.7 g/dL (12.0-15.0); Lymphocyte # 0.47 X10^3/ul (0.83-4.51); Lymphocyte % 8.7 % (19-41); Mean Corp Hgb Conc 29.5 g/dL (32-36); Mean Corpuscular Hgb 29.2 pg (27.0-32.0); Mean Corpuscular Volume 99.2 fL (81-99); Mean Platelet Vol. 11.2 fl (6.2-12.0); Monocyte# 0.36 X10^3/uL; Monocyte% 6.6 % (0-10); NRBC Flagged by Analyzer 0 % (0-5); Neutrophil # 4.57 X10^3/uL (2.7-7.7); Neutrophil % 84.1 % (47-70); POSITIVE DIFFERENTIAL YES; Platelet Count 133 K/mm3 (150-450); RBC Distribution Width SD 57.4 fl (35.1-43.9); Red Blood Count 3.66 M/mm3 (4.2-5.4); White Blood Count 5.4 K/mm3 (4.4-11.0)
[2021-02-07 07:10] LABS: Differential Indicated SCAN CRITERIA MET
[2021-02-07 07:21] LABS: Bedside Glucose 217 mg/dL (70-110)
[2021-02-07 07:27] LABS: ALB/GLOB Ratio 0.6 RATIO (0.9-2.4); AST(SGOT) 28 U/L (15-37); Alanine Aminotransfer ALT/SGPT 35 U/L (13-56); Alkaline Phosphatase 74 U/L (45-117); Anion Gap 3 (5-15); BUN 13 mg/dL (7-18); BUN/Creat Ratio 17.1 RATIO (10-20); Calcium,Total 8.3 mg/dL (8.5-10.1); Chloride 102 mmol/L (98-107); Creatinine, Serum 0.76 mg/dL (0.55-1.02); EST Glomerular Filtration Rate 81 mL/min (>60); Est Glom Filt Rate - Afr Amer 99 mL/min (>60); Estimated Creatinine Clearance 81.93 ml/min; Globulin 4.8 g/dL (2.2-4.2); Glucose 246 mg/dL (74-106); Potassium 4.5 mmol/L (3.5-5.1); Protein, Total 7.8 g/dL (6.4-8.2); Sodium Level 138 mmol/L (136-145)
--- NOTE | 2021-02-07 08:18 | PCS.PANDOC ---
PANDEMIC DOCUMENTATION INITIATED: Date: 10/02/2020 Time: 190
[2021-02-07 08:45] LABS: Procalcitonin 0.09 ng/mL (0.00-0.09); Vitamin B12 140 pg/mL (211-911)
[2021-02-07] MEDS: Spironolactone 25 MG Tablet PO (08:54)
[2021-02-07] MEDS: Levothyroxine 100 MCG Tablet 200 MCG PO (08:54)
[2021-02-07] MEDS: Metoprolol Tartrate 25 MG Tablet PO (08:55)
[2021-02-07] MEDS: Potassium Chloride Oral Tablet 20 MEQ PO (08:55)
[2021-02-07] MEDS: Multivitamins,Therapeutic Tablet 1 TABLET PO (08:55)
[2021-02-07] MEDS: dexAMETHasone 4 MG Tablet 6 MG PO (08:56)
[2021-02-07] MEDS: Gabapentin 100 MG Capsule 200 MG PO ×3 (08:56→16:46)
[2021-02-07] MEDS: Furosemide 40 MG Tablet PO ×2 (08:56→16:46)
[2021-02-07] MEDS: Menthol/Lanolin/Calamine/Znox 113 GM Tube 1 APPLIC TOPICAL ×2 (08:57→21:50)
[2021-02-07] MEDS: Enoxaparin 30 MG/0.3 ML Syringe SC ×2 (09:26→21:51)
[2021-02-07] MEDS: 0.9% Saline Lock 10 ML Syringe IV ×2 (09:30→21:46)
--- NOTE | 2021-02-07 09:40 | PN.HOSP_ITS ---
Subjective Subjective She is maintaining her oxygen saturations on 4 L nasal cannula. She is unvaccinated, D-dimer was elevated on admission CTA was negative for PE. Objective Data Objective Data Vital Signs: Vital Signs Temp Pulse Resp BP Pulse Ox 97.8 F 85 20 H 152/78 H 97 02/07/21 08:48 02/07/21 08:55 02/07/21 08:48 02/07/21 08:48 02/07/21 09:23 Oxygen Flow Rate (L/min) [ 8 AMBULATING with Oxygen #3] Oxygen Flow Rate (L/min) [ 6 AMBULATING with Oxygen #2] Oxygen Flow Rate (L/min) [ 4 AMBULATING with Oxygen #1] Oxygen Flow Rate (L/min) 7 Oxygen Delivery Method Nasal Cannula Weight: 378 lb 15.594 oz Body Mass Index (BMI) 54.3 Intake & Output: Intake and Output for Last 24 Hours 02/06/21 02/07/21 02/08/21 03:59 03:59 03:59 Intake Total 860 / 860 Balance 860 / 860 Lab / Micro Data Result Diagrams: 02/07/21 06:25 02/07/21 06:25 Labs: Laboratory Results - last 24 hr 02/06/21 17:55: WBC 6.0, RBC 3.52 L, Hgb 10.2 L, Hct 35.1 L, MCV 99.7 H, MCH 29.0, MCHC 29.1 L, RDW Std Deviation 57.9 H, RDW Coeff of Danielle 16.1 H, Plt Count 131 L, MPV 11.1, Immature Gran % (Auto) 0.800, Neut % (Auto) 81.6 H, Lymph % (Auto) 10.0 L, [place] % (Auto) 6.0, Eos % (Auto) 1.3, Baso % (Auto) 0.3, Absolute Neuts (auto) 4.9, Absolute Lymphs (auto) 0.60 L, Nucleated RBC % 0, Differential Comment SEE COMMENT, Platelet Estimate SLT DEC, RBC Morphology N CHROM, Anisocytosis RARE, Macrocytosis RARE 02/06/21 17:55: D-Dimer Quant (PE/DVT) 1.37 H* 02/06/21 17:55: Sodium 140, Potassium 4.2, Chloride 103, Carbon Dioxide 33.0 H, Anion Gap 4 L, BUN 13, Creatinine 0.87, Estim Creat Clear Calc 71.57, Est GFR (MDRD) Af Amer 84, Est GFR (MDRD) Non-Af 70, BUN/Creatinine Ratio 14.9, Glucose 145 H, Calcium 8.2 L, Total Bilirubin 0.50, AST 27, ALT 29, Alkaline Phosphatase 72, Troponin I High Sens 33, Total Protein 7.4, Albumin 2.9 L, Globulin 4.5 H, Albumin/Globulin Ratio 0.6 L 02/06/21 17:55: Iron 20 L, TIBC 293, Iron Saturation 6.8 L, Ferritin 37 02/06/21 17:55: Immature Plt Fraction 6.9, Retic Count 2.70 H, Immature Retic Fraction 24.70 H, Retic Hgb Equivalent 28.0 L 02/06/21 17:55: Folate 45.20 02/06/21 23:27: POC Glucose 247 H 02/07/21 06:25: WBC 5.4, RBC 3.66 L, Hgb 10.7 L, Hct 36.3 L, MCV 99.2 H, MCH 29.2, MCHC 29.5 L, RDW Std Deviation 57.4 H, RDW Coeff of Danielle 16.0 H, Plt Count 133 L, MPV 11.2, Immature Gran % (Auto) 0.600, Neut % (Auto) 84.1 H, Lymph % (Auto) 8.7 L, [place] % (Auto) 6.6, Eos % (Auto) 0.0, Baso % (Auto) 0.0, Absolute Neuts (auto) 4.6, Absolute Lymphs (auto) 0.47 L, Nucleated RBC % 0 02/07/21 06:25: Sodium 138, Potassium 4.5, Chloride 102, Carbon Dioxide 33.0 H, Anion Gap 3 L, BUN 13, Creatinine 0.76, Estim Creat Clear Calc 81.93, Est GFR (MDRD) Af Amer 99, Est GFR (MDRD) Non-Af 81, BUN/Creatinine Ratio 17.1, Glucose 246 H, Calcium 8.3 L, Total Bilirubin 0.50, AST 28, ALT 35, Alkaline Phosphatase 74, Total Protein 7.8, Albumin 3.0 L, Globulin 4.8 H, Albumin/Globulin Ratio 0.6 L 02/07/21 06:25: Vitamin B12 140 L, Procalcitonin 0.09 02/07/21 06:56: POC Glucose 217 H Micro: Microbiology 02/07/21 02:40 Nasal Secretion SARS-CoV-2 Antigen (Rapid) - Final Radiography Diagnostic Testing: Radiology Impression Chest X-Ray 02/06/21 18:20 IMPRESSION: Findings are consistent with bilateral multifocal pneumonia. Electronically Signed: Ketty South MD at 19:37 EST , Service support , Chest CTA 02/06/21 18:33 IMPRESSION: 1. No CTA demonstrated pulmonary embolism or arterial dissection. 2. Mediastinal and hilar lymphadenopathy. 3. Multifocal airspace disease suggests multifocal pneumonia. Suggest follow-up after treatment to exclude underlying neoplasia. Electronically Signed: Ketty South MD at 20:46 EST , Service support , Rhythm Strip Rhythm Strip: Sinus Rhythm Rate: 80 Ectopy: None Physical Exam Const alert, oriented x3 and no apparent distress General Appearance: cooperative HEENT normocephalic and moist oral mucous membranes Eyes PERRL, EOMs intact bilaterally and conjunctivae normal Neck supple and no JVD Resp normal respiratory effort, no retractions and no use of accessory muscles Auscultation: crackles and diminished lung sounds; Negative for rales, rhonchi or wheezes Cardio regular rate, regular rhythm, S1 normal heart sound, S2 normal heart sound and no murmurs GI soft to palpation, non-tender and non-distended; Negative for hepatosplenomegaly Extremity General Extremity: edema bilateral; Negative for clubbing or cyanosis Skin Skin Narrative: Chronic venous stasis changes bilaterally Neuro no focal motor deficits and no sensory deficits noted Psych affect normal Appearance: appropriate Assessment & Plan Assessment/Plan (1) Pneumonia due to COVID-19 virus: (2) Acute hypoxemic respiratory failure: (3) Anemia: QUALIFIERS: Anemia type: unspecified type Qualified Code(s): D64.9 - Anemia, unspecified PLAN: 1. Acute hypoxic respiratory failure secondary to COVID-19 pneumonia ?Continue with Decadron and remdesivir ?Continue with her home Lasix given the crackles ?Encouraged incentive spirometry and ambulation, she would like to be intubated if that were to become necessary 2. HTN/history of heart failure unsure type ?Blood pressures currently are stable ?Continue with her Lasix, metoprolol, Aldactone ?No signs of an echo in our system and will not obtain one secondary to not being necessary in the setting of Covid as Covid is her likely source for hypoxic respiratory failure 3. DM2 with peripheral neuropathy ?We will continue with long-acting insulin, her A1c was 7.5 back in November ?Accu-Cheks AC at bedtime with sliding scale insulin ?Given her Decadron, will be aggressive in managing her sugars and make adjustments as necessary 4. Hemorrhoidal bleed with iron deficiency anemia ?Given the elevation in her D-dimer, she is not that anemic therefore we will discontinue her Protonix as her bleed is likely of the lower source ?She did receive iron infusion for her iron deficiency anemia ?Continue with DVT prophylaxis in the setting of Covid with an elevated D-dimer regardless of the fact that CTA was negative for PEs 5. Hypothyroidism ?Stable ?Continue with Synthroid DVT: Lovenox Charges/Coding Visit Charges Inpatient E&M: 26388 Subs Hosp L2
--- NOTE | 2021-02-07 09:47 | WOUNDNOTE ---
Was asked by nursing to assess legs for wounds and weeping areas. there is one small superficial open area noted to the right posterior lower leg. small amount of serous drainage noted. there are no other wounds noted. moderate edema noted. washed legs and feet with soap and water. pat dry. placed Adaptic to the open areas right posterior lower leg. covered with dry dressing and wrapped with kerlix. applied OLMAN wraps to bilateral lower legs from the base of the toes to just below the knees. pt tolerated well. will monitor.
[2021-02-07 14:20] LABS: Bedside Glucose 159 mg/dL (70-110)
[2021-02-07 16:55] LABS: Bedside Glucose 214 mg/dL (70-110)
[2021-02-07] MEDS: Acetaminophen 325 MG Tablet 650 MG PO (21:57)
[2021-02-07] MEDS: MELATONIN 3 MG TABLET PO (21:59)
[2021-02-07 22:06] LABS: Bedside Glucose 138 mg/dL (70-110)
[2021-02-08] VITALS (10 sets, daily range): BP systolic 130–156; BP diastolic 72–85; PULSE 80–84; RESP 18–20; TEMP 36.3–36.7; O2SAT 3–95
[2021-02-08] MEDS: Acetaminophen 325 MG Tablet 650 MG PO (06:07)
[2021-02-08 06:41] LABS: Bedside Glucose 139 mg/dL (70-110)
[2021-02-08 06:45] LABS: Absolute Lymphocyte Count 1.09 X10^3/uL (0.83-4.51); Absolute Neutrophil Count 5.1 X10^3/uL (2.0-7.7); Basophil# 0.02 X10^3/uL; Basophil% 0.3 % (0-1); Eosinophil# 0.03 X10^3/uL; Eosinophils% 0.4 % (0-5); Hematocrit 36.7 % (37-47); Hemoglobin 10.6 g/dL (12.0-15.0); Lymphocyte # 1.09 X10^3/ul (0.83-4.51); Lymphocyte % 15.9 % (19-41); Mean Corp Hgb Conc 28.9 g/dL (32-36); Mean Corpuscular Hgb 28.8 pg (27.0-32.0); Mean Corpuscular Volume 99.7 fL (81-99); Mean Platelet Vol. 11.8 fl (6.2-12.0); Monocyte% 8.8 % (0-10); NRBC Flagged by Analyzer 0 % (0-5); Neutrophil # 5.07 X10^3/uL (2.7-7.7); Neutrophil % 74.2 % (47-70); Platelet Count 141 K/mm3 (150-450); RBC Distribution Width CV 15.6 % (11.6-14.6); RBC Distribution Width SD 57.9 fl (35.1-43.9); Red Blood Count 3.68 M/mm3 (4.2-5.4); White Blood Count 6.8 K/mm3 (4.4-11.0)
[2021-02-08 07:12] LABS: ALB/GLOB Ratio 0.6 RATIO (0.9-2.4); AST(SGOT) 25 U/L (15-37); Alanine Aminotransfer ALT/SGPT 34 U/L (13-56); Albumin, Serum 2.8 g/dL (3.2-5.0); Alkaline Phosphatase 65 U/L (45-117); Anion Gap 6 (5-15); BUN 18 mg/dL (7-18); Calcium,Total 8.5 mg/dL (8.5-10.1); Chloride 101 mmol/L (98-107); Creatinine, Serum 0.75 mg/dL (0.55-1.02); EST Glomerular Filtration Rate 83 mL/min (>60); Est Glom Filt Rate - Afr Amer 100 mL/min (>60); Estimated Creatinine Clearance 83.02 ml/min; Globulin 4.6 g/dL (2.2-4.2); Glucose 141 mg/dL (74-106); Protein, Total 7.4 g/dL (6.4-8.2); Sodium Level 140 mmol/L (136-145)
[2021-02-08] MEDS: Multivitamins,Therapeutic Tablet 1 TABLET PO (09:36)
[2021-02-08] MEDS: dexAMETHasone 4 MG Tablet 6 MG PO (09:36)
[2021-02-08] MEDS: Furosemide 40 MG Tablet PO ×2 (09:36→16:35)
[2021-02-08] MEDS: Metoprolol Tartrate 25 MG Tablet PO (09:36)
[2021-02-08] MEDS: Potassium Chloride Oral Tablet 20 MEQ PO (09:36)
[2021-02-08] MEDS: Levothyroxine 100 MCG Tablet 200 MCG PO (09:36)
[2021-02-08] MEDS: Gabapentin 100 MG Capsule 200 MG PO ×3 (09:36→16:35)
[2021-02-08] MEDS: Enoxaparin 30 MG/0.3 ML Syringe SC ×2 (09:36→20:42)
[2021-02-08] MEDS: Menthol/Lanolin/Calamine/Znox 113 GM Tube 1 APPLIC TOPICAL ×2 (09:37→20:40)
[2021-02-08] MEDS: Spironolactone 25 MG Tablet PO (09:37)
[2021-02-08] MEDS: Nystatin Powder 15gm Bottle 1 APPLIC TOPICAL ×2 (09:37→20:41)
--- NOTE | 2021-02-08 09:51 | NURSING ---
Addendum entered by Amina Karimi 02/08/21 09:52: during attempts at ambulation- pt continues to request to use staff to stablize me stating at home i pull on my son to get up and down, he holds me up and stablizes me. informed pt unsafe for staff/for pt/for body mechanics. pt states well i am letting my kids down. discussion/active listening. pt states she tried her best. support provided. Original Note: pt unable to get herself out of chair to perform ambulating activity so trial done while pt in chair with exercises.
[2021-02-08] MEDS: Insulin Lispro 100 UNIT/ML INSULN.PEN SC ×3 (12:33→20:41)
--- NOTE | 2021-02-08 12:35 | CASEMGMT ---
CRISTINA ZIMMER Assessment: Face to Face with pt for initial transition planning/care coordination assessment. CRISTINA ZIMMER introduced self and role at [facility], pt voices understanding and consents to assessment. Pt is A/O x4 and answers all questions appropriately at this time. Pt sitting up in chair with O2 on in no distress. Care providers, pharmacy, and demographics verified/updated. Admitting Dx: acute hypoxemic resp failure secondary to COVID pna PCP:[facility] Specialists: JACQUES Schaffer Preferred [facility]acy: [facility] Insurance: MMO Prescription Benefit: no LW/HPOA: Pt denies having a LW/DPOA and denies need for info regarding AD. LNOK: Skip Zuluaga, (currently in ICU); Ronal Read, son Living Arrangements: Pt lives with son and in a single story house with 1 step to enter with a grab bar. Pt reports she is I in ADL's but needs her son's assistance to stand and steady her. Transportation: Pt states she has not driven in 2 years and her son transports her to medical appts. DME/HHC/SNF: Pt has a BGM with supplies, pulse ox, BP cuff, standard walker, rollator, scooter, 2 canes, wound care supplies and a handicap shower. Pt denies previous HHC and SNF stays. Pt states she was first tested at an urgent care in [place] on [facility]. Pt does have family who can provide her with groceries and supplies while in quarantine should she go home. Provided her a verbal local in network list of DME companies should she need O2, pt chose [employer]. Pt hopes to go home. She has not yet worked with therapy. Made her aware that we will see how she does with therapy. Pt states no further concerns/needs. CM to follow. Advised pt to ask CM if any further question/concerns/needs arise, voices understanding. Pt Goal: Home Plan: TBD pending therapy
--- NOTE | 2021-02-08 14:07 | PCM.PN.HOSP ---
Subjective Subjective Seems to be doing okay, she has had some frustration with the time and is taken for care to be delivered some of these include secondary to needing a blanket for issues with a dry after a cold window. Discussed with her that we are doing the best we can given the circumstances of the pandemic. She did have difficulty getting out of a chair on her own so we did have an extensive discussion being able to be discharged safely to home versus the need of going to a assisted. She stated that she will think about this. Objective Data Objective Data Vital Signs: Vital Signs Temp Pulse Resp BP Pulse Ox 98.1 F 81 20 H 130/72 H 88 02/08/21 09:32 02/08/21 09:36 02/08/21 09:32 02/08/21 09:32 02/08/21 09:50 Oxygen Flow Rate (L/min) [At 91 REST with Oxygen] Oxygen Flow Rate (L/min) [ 8 AMBULATING with Oxygen #3] Oxygen Flow Rate (L/min) [ 4 AMBULATING with Oxygen #2] Oxygen Flow Rate (L/min) [ 3 AMBULATING with Oxygen #1] Oxygen Flow Rate (L/min) 3 Oxygen Delivery Method Nasal Cannula Weight: 378 lb 15.594 oz Body Mass Index (BMI) 54.3 Intake & Output: Intake and Output for Last 24 Hours 02/07/21 02/08/21 02/09/21 03:59 03:59 03:59 Intake Total 860 / 860 1020.25 / 1020.25 Output Total 1900 / 1900 Balance 860 / 860 -879.75 / -879.75 Lab / Micro Data Result Diagrams: 02/08/21 06:00 02/08/21 06:00 Labs: Laboratory Results - last 24 hr 02/07/21 12:50: POC Glucose 159 H 02/07/21 16:41: POC Glucose 214 H 02/07/21 21:53: POC Glucose 138 H 02/08/21 06:00: WBC 6.8, RBC 3.68 L, Hgb 10.6 L, Hct 36.7 L, MCV 99.7 H, MCH 28.8, MCHC 28.9 L, RDW Std Deviation 57.9 H, RDW Coeff of Danielle 15.6 H, Plt Count 141 L, MPV 11.8, Immature Gran % (Auto) 0.400, Neut % (Auto) 74.2 H, Lymph % (Auto) 15.9 L, [place] % (Auto) 8.8, Eos % (Auto) 0.4, Baso % (Auto) 0.3, Absolute Neuts (auto) 5.1, Absolute Lymphs (auto) 1.09, Nucleated RBC % 0 02/08/21 06:00: Sodium 140, Potassium 4.0, Chloride 101, Carbon Dioxide 33.0 H, Anion Gap 6, BUN 18, Creatinine 0.75, Estim Creat Clear Calc 83.02, Est GFR (MDRD) Af Amer 100, Est GFR (MDRD) Non-Af 83, BUN/Creatinine Ratio 24.0 H, Glucose 141 H, Calcium 8.5, Total Bilirubin 0.50, AST 25, ALT 34, Alkaline Phosphatase 65, Total Protein 7.4, Albumin 2.8 L, Globulin 4.6 H, Albumin/Globulin Ratio 0.6 L 02/08/21 06:00: POC Glucose 139 H Micro: Microbiology 02/07/21 02:40 Nasal Secretion SARS-CoV-2 Antigen (Rapid) - Final Rhythm Strip Rhythm Strip: Sinus Rhythm Rate: 80 Ectopy: None Physical Exam Const alert, oriented x3 and no apparent distress General Appearance: cooperative HEENT normocephalic and moist oral mucous membranes Eyes PERRL, EOMs intact bilaterally and conjunctivae normal Neck supple and no JVD Resp normal respiratory effort, no retractions and no use of accessory muscles Auscultation: diminished lung sounds; Negative for crackles, rales, rhonchi or wheezes Cardio regular rate, regular rhythm, S1 normal heart sound, S2 normal heart sound and no murmurs GI soft to palpation, non-tender and non-distended; Negative for hepatosplenomegaly Extremity General Extremity: edema bilateral; Negative for clubbing or cyanosis Skin Skin Narrative: Chronic venous stasis changes bilaterally Neuro no focal motor deficits and no sensory deficits noted Psych affect normal Appearance: appropriate Assessment & Plan Assessment/Plan (1) Pneumonia due to COVID-19 virus: (2) Acute hypoxemic respiratory failure: (3) Anemia: QUALIFIERS: Anemia type: unspecified type Qualified Code(s): D64.9 - Anemia, unspecified PLAN: 1. Acute hypoxic respiratory failure secondary to COVID-19 pneumonia ?Continue with Decadron and remdesivir ?Continue with her home Lasix ?Encouraged incentive spirometry and ambulation, she would like to be intubated if that were to become necessary ?PT/OT is recommending SNF placement 2. HTN/history of heart failure unsure type ?Blood pressures currently are stable ?Continue with her Lasix, metoprolol, Aldactone ?No signs of an echo in our system and will not obtain one secondary to not being necessary in the setting of Covid as Covid is her likely source for hypoxic respiratory failure 3. DM2 with peripheral neuropathy ?We will continue with long-acting insulin, her A1c was 7.5 back in November ?Accu-Cheks AC at bedtime with sliding scale insulin ?Given her Decadron, will be aggressive in managing her sugars and make adjustments as necessary 4. Hemorrhoidal bleed with iron deficiency anemia ?Given the elevation in her D-dimer, she is not that anemic therefore we will discontinue her Protonix as her bleed is likely of the lower source ?She did receive iron infusion for her iron deficiency anemia ?Continue with DVT prophylaxis in the setting of Covid with an elevated D-dimer regardless of the fact that CTA was negative for PEs 5. Hypothyroidism ?Stable ?Continue with Synthroid DVT: Lovenox Charges/Coding Visit Charges Inpatient E&M: 19443 Subs Hosp L2
[2021-02-08 14:21] LABS: Bedside Glucose 163 mg/dL (70-110)
--- NOTE | 2021-02-08 15:14 | NURSING ---
While said nurse in room pt turns head away during conversation, raises voice at times. pt states i am staying here until i am healthy reinforced progress/discharge planning as well. Patient advocate now in talking with pt.
[2021-02-08 16:50] LABS: Bedside Glucose 204 mg/dL (70-110)
--- NOTE | 2021-02-08 16:50 | CASEMGMT ---
Social Work Note SW updated that pt is willing to consider SNF if she doesn't have to go to SNF that is hours away. SW in to speak with pt. SW introduced self and role at [facility]. SW spoke with pt about SNF. Patient was provided a list of SNF providers including quality and resource use data and consistent with the patient?s preferred geographic region, medical needs, and insurance network. SW explained the difficulties it will be to find a SNF for pt as pt is COVID+ and the only SNF in [facility] taking COVID+ pt's is [facility] and they do not accept pt's insurance. SW informed pt that the only SNF in [facility] that accept's pt insurance is [facility] and [facility]. SW explained that different SNF have different COVID requirements but they all require at least pt to be 10 days post positive test. Pt confirms she tested positive February 04. SW informed pt that the next closest SNF that accept pt's insurance is in [facility] and the SNF are [facility] and [facility]. Pt asked about [facility]. SW informed pt that [facility] did not show up as an in network facility on O website, but this worker can always call and check. SW informed pt that with it being 5:00pm on a before a Holiday weekend, nothing will be able to be completed today for SNF. SW informed pt that review list of SNF and to have multiple choices for SNF on Friday so this worker can start sending out referrals. PT asked about [facility]. SW informed pt that TCU takes COVID pts that are 22 days out from post postive test. While this worker was in the room, pt got a phone call from a person named Ale. Pt states Ale was a previous student and gave this worker permission to speak to Ale about SNF and pt's Medical Information. SW spoke with Ale about pt's SNF options. Ale states understanding. Pt confirms she understands she needs to pick different options for SNF and to have choices for this worker on Friday. SW stressed the impotance to pt to have choices available Friday so this worker can work on SNF referrals. The following are SNF that are in network with pt's insurance and their COVID policies. [facility]: 10 days post positive test [facility] 10 days post positive test [facility]: 10 days post positive test and asymptomatic for 3 days [facility]: 14 days post positive test and asymptomatic for 3 days The following are all the SNF taking COVID+ pt before 10 days post positive. This worker is not sure which ones take pt's insurance or not other than [facility]. [facility] doesn't take pt's insurance. [facility]: Does not accept pt's insurance [facility]: Has no COVID beds available and this worker is not sure if they take pt's insurance or not [facility]: Has one COVID beds available and this worker is not sure if they take pt's insurance or not [facility]: Has no COVID beds available and this worker is not sure if they take pt's insurance or not Of note, pt is also 378lbs and most nursing homes cannot accommodate pt's that are more than 300 pounds. SW will need to look for a SNF that takes pt's insurance, takes COVID+ pt's and can take bariatric patients. SW will begin looking at SNF Friday as it is a holiday weekend this weekend. Plan: Likely SNF pending acceptance and pre-cert SW to continue to follow. Mindi Solomon TECHNICAL DELIVERY MANAGER, STATIONARY EQUIPMENT MECHANIC
[2021-02-08] MEDS: 0.9% Saline Lock 10 ML Syringe IV (20:52)
[2021-02-08 21:46] LABS: Bedside Glucose 201 mg/dL (70-110)
[2021-02-08] MEDS: hydrOXYzine 10 MG Tablet PO (22:12)
[2021-02-09] VITALS (7 sets, daily range): BP systolic 128–146; BP diastolic 71–77; PULSE 76–81; RESP 16–18; TEMP 36.3–37.2; O2SAT 95–98
[2021-02-09] MEDS: Acetaminophen 325 MG Tablet 650 MG PO ×2 (04:06→21:49)
[2021-02-09 05:45] LABS: Bedside Glucose 140 mg/dL (70-110)
[2021-02-09 06:26] LABS: Absolute Lymphocyte Count 0.95 X10^3/uL (0.83-4.51); Absolute Neutrophil Count 3.7 X10^3/uL (2.0-7.7); Basophil# 0.01 X10^3/uL; Basophil% 0.2 % (0-1); Eosinophil# 0.04 X10^3/uL; Eosinophils% 0.8 % (0-5); Hemoglobin 10.2 g/dL (12.0-15.0); Lymphocyte # 0.95 X10^3/ul (0.83-4.51); Mean Corp Hgb Conc 29.1 g/dL (32-36); Mean Corpuscular Hgb 28.7 pg (27.0-32.0); Mean Corpuscular Volume 98.3 fL (81-99); Mean Platelet Vol. 11.3 fl (6.2-12.0); Monocyte# 0.58 X10^3/uL; NRBC Flagged by Analyzer 0 % (0-5); Neutrophil # 3.68 X10^3/uL (2.7-7.7); Neutrophil % 69.4 % (47-70); Platelet Count 146 K/mm3 (150-450); RBC Distribution Width CV 15.5 % (11.6-14.6); Red Blood Count 3.56 M/mm3 (4.2-5.4); White Blood Count 5.3 K/mm3 (4.4-11.0)
[2021-02-09 06:56] LABS: ALB/GLOB Ratio 0.6 RATIO (0.9-2.4); AST(SGOT) 17 U/L (15-37); Alanine Aminotransfer ALT/SGPT 27 U/L (13-56); Albumin, Serum 2.8 g/dL (3.2-5.0); Alkaline Phosphatase 64 U/L (45-117); Anion Gap 5 (5-15); BUN 17 mg/dL (7-18); BUN/Creat Ratio 26.8 RATIO (10-20); Calcium,Total 8.5 mg/dL (8.5-10.1); Chloride 100 mmol/L (98-107); Creatinine, Serum 0.63 mg/dL (0.55-1.02); EST Glomerular Filtration Rate 101 mL/min (>60); Est Glom Filt Rate - Afr Amer 122 mL/min (>60); Estimated Creatinine Clearance 98.84 ml/min; Globulin 4.5 g/dL (2.2-4.2); Glucose 126 mg/dL (74-106); Potassium 4.3 mmol/L (3.5-5.1); Protein, Total 7.3 g/dL (6.4-8.2); Sodium Level 141 mmol/L (136-145)
[2021-02-09] MEDS: dexAMETHasone 4 MG Tablet 6 MG PO (08:36)
[2021-02-09] MEDS: Enoxaparin 30 MG/0.3 ML Syringe SC ×2 (08:36→21:45)
[2021-02-09] MEDS: Metoprolol Tartrate 25 MG Tablet PO (08:36)
[2021-02-09] MEDS: Furosemide 40 MG Tablet PO ×2 (08:37→17:08)
[2021-02-09] MEDS: Levothyroxine 100 MCG Tablet 200 MCG PO (08:37)
[2021-02-09] MEDS: Gabapentin 100 MG Capsule 200 MG PO ×3 (08:37→17:09)
[2021-02-09] MEDS: Spironolactone 25 MG Tablet PO (08:38)
[2021-02-09] MEDS: Potassium Chloride Oral Tablet 20 MEQ PO (08:38)
[2021-02-09] MEDS: Multivitamins,Therapeutic Tablet 1 TABLET PO (08:53)
--- NOTE | 2021-02-09 11:23 | PN.HOSP_ITS ---
Subjective Subjective Patienet seen and examined. She had a litany of complaints about her suggested placement in SNF. She says her shortness of breath hasnt worsened. She is on 3L of oxygen. Patient states she has been offered nursing homes in [facility] and these are too far where she wants to be close to her who is currently admitted in the ICU. Patient says she wants to go to TCU but I explained to her that TC is not admitting Covid positive patients. Patient states she is aware of the but still does not understand why she cannot go to TCU. I was later informed by physical therapy that patient was also not cooperating with physical therapy and will not carry out therapy activities as requested. She is on 3L of oxygen. Objective Data Objective Data Vital Signs: Vital Signs Temp Pulse Resp BP Pulse Ox 98.9 F 76 18 143/77 H 98 02/09/21 09:44 02/09/21 09:44 02/09/21 10:00 02/09/21 09:44 02/09/21 09:44 Oxygen Flow Rate (L/min) [At 91 REST with Oxygen] Oxygen Flow Rate (L/min) [ 8 AMBULATING with Oxygen #3] Oxygen Flow Rate (L/min) [ 4 AMBULATING with Oxygen #2] Oxygen Flow Rate (L/min) [ 3 AMBULATING with Oxygen #1] Oxygen Flow Rate (L/min) 3 Oxygen Delivery Method Nasal Cannula Weight: 378 lb 15.594 oz Body Mass Index (BMI) 54.3 Intake & Output: Intake and Output for Last 24 Hours 02/07/21 02/08/21 02/09/21 23:59 23:59 23:59 Intake Total 1020.25 / 1270.25 1100 / 1100 Output Total 1900 / 1900 2150 / 2150 350 / 350 Balance -879.75 / -629.75 -1050 / -1050 -350 / -350 Lab / Micro Data Result Diagrams: 02/09/21 05:15 02/09/21 05:15 Labs: Laboratory Results - last 24 hr 02/08/21 12:02: POC Glucose 163 H 02/08/21 16:33: POC Glucose 204 H 02/08/21 20:30: POC Glucose 201 H 02/09/21 05:15: WBC 5.3, RBC 3.56 L, Hgb 10.2 L, Hct 35.0 L, MCV 98.3, MCH 28.7, MCHC 29.1 L, RDW Std Deviation 56.0 H, RDW Coeff of Danielle 15.5 H, Plt Count 146 L, MPV 11.3, Immature Gran % (Auto) 0.600, Neut % (Auto) 69.4, Lymph % (Auto) 18.0 L, [place] % (Auto) 11.0 H, Eos % (Auto) 0.8, Baso % (Auto) 0.2, Absolute Neuts (auto) 3.7, Absolute Lymphs (auto) 0.95, Nucleated RBC % 0 02/09/21 05:15: Sodium 141, Potassium 4.3, Chloride 100, Carbon Dioxide 36.0 H, Anion Gap 5, BUN 17, Creatinine 0.63, Estim Creat Clear Calc 98.84, Est GFR (MDRD) Af Amer 122, Est GFR (MDRD) Non-Af 101, BUN/Creatinine Ratio 26.8 H, Glucose 126 H, Calcium 8.5, Total Bilirubin 0.50, AST 17, ALT 27, Alkaline Phosphatase 64, Total Protein 7.3, Albumin 2.8 L, Globulin 4.5 H, Albumin/Globulin Ratio 0.6 L 02/09/21 05:35: POC Glucose 140 H Micro: Microbiology 02/07/21 02:40 Nasal Secretion SARS-CoV-2 Antigen (Rapid) - Final Rhythm Strip Rhythm Strip: Sinus Rhythm Rate: 80 Ectopy: None Physical Exam Const alert, oriented x3 and no apparent distress Constitutional Narrative: super morbid obesity Exam Limitations: no limitations Nutritional Appearance: morbidly obese HEENT head/scalp atraumatic, moist oral mucous membranes and oropharynx normal Head and Scalp: normocephalic Eyes PERRL, EOMs intact bilaterally and conjunctivae normal Neck no lymphadenopathy Resp normal respiratory effort, no retractions and no use of accessory muscles Cardio regular rate, regular rhythm, S1 normal heart sound, S2 normal heart sound and no murmurs GI normal to inspection, nondistended, normoactive bowel sounds, soft to palpation, non-tender and non-distended Extremity normal to inspection, full ROM and no clubbing, cyanosis or edema Peripheral Pulses: Yes pulses 2+ throughout Skin no rashes or lesions noted Neuro oriented x3 and CN's II-XII intact bilaterally Sensorium / Orientation: awake and alert Psych affect normal Assessment & Plan Assessment/Plan (1) Acute hypoxemic respiratory failure: (2) Pneumonia due to COVID-19 virus: PLAN: #Acute hypoxic failure due to cOVID 19 pneumonia * Currently on 3 L of oxygen. On remdesivir and Decadron. * Titrate oxygen to maintain saturation above 90%. * Breathing treatments with bronchodilators. * #Hypothyroidism: On Synthroid #Hypertension: On metoprolol #Type 2 diabetes mellitus with peripheral neuropathy * On Lantus. Insulin sliding scale. Accu-Cheks AC at bedtime. * #Iron deficiency anemia: Hemoglobin is around 10. Thought to be due to hemor rhoidal bleeding. Follow-up with general surgeon on outpatient basis #Elevated D-dimer: likely due to covid. On lovenox #DVT prophylaxis: Lovenox Disposition: Awaiting placement Charges/Coding Visit Charges Inpatient E&M: 17680 Subs Hosp L2
--- NOTE | 2021-02-09 11:24 | CM.ED ---
Addendum entered by Khloe Desai 02/09/21 11:53: JANAY sent message to Chaplain Juwan, asking him to follow up with patient for support. SW remains available if needed. Khloe STEEL Original Note: JANAY Note Referral Source: Patient's son Referral Reason: Discharge planning Patient's son, eKvin, called and requested to speak to the social insurance analyst. Kevin said that his mom, the patient, told him to call and update the social insurance analyst. Kevin said that his mom would like to go to [place]. Kevin said that [place] will accept covid positive patients. JANAY met with patient in her room. Patient said that [facility] and they are accepting COVID and accept her insurance. Patient said that Vernon phone number is [phone]. Patient said that she does not want to go to [facility] for SNF as she wants to be in the local area as her is in ICU. Patient said that her next choices include [facility], [facility], [facility] and [facility]. SW noted that patient had not chosen any SNF that were in network thus patient would have a copay as they are out of network. SW explained that the yellow highlighted was in network. Patient said well, [facility] is too far away. Patient said that she is sad as she is in [facility] [place] and family members are sick also. SW encouraged patient to journal, as she reports she journals Patient said isn't there anyone I can talk to?. JANAY said that the grease press helper is back on Friday and SW can leave a message for him. Patient's first choice for rehab is [facility]. Plan: SNF at discharge Khloe STEEL
[2021-02-09] MEDS: Nystatin Powder 15gm Bottle 1 APPLIC TOPICAL ×2 (11:38→21:44)
[2021-02-09] MEDS: Menthol/Lanolin/Calamine/Znox 113 GM Tube 1 APPLIC TOPICAL ×2 (11:38→21:44)
[2021-02-09] MEDS: Insulin Lispro 100 UNIT/ML INSULN.PEN SC ×3 (11:39→21:45)
--- NOTE | 2021-02-09 17:44 | NURSING ---
GLUCERNA REMOVED FROM DIETARY ORDER PER PT REQUEST, SHE IS NOT DRINKING THEM AND DOES NOT WANT TO WASTE THEM
[2021-02-09 18:26] LABS: Bedside Glucose 167 mg/dL (70-110)
[2021-02-09 18:46] LABS: Bedside Glucose 224 mg/dL (70-110)
[2021-02-09] MEDS: 0.9% Saline Lock 10 ML Syringe IV (21:48)
[2021-02-09 22:05] LABS: Bedside Glucose 187 mg/dL (70-110)
[2021-02-09] MEDS: MELATONIN 3 MG TABLET PO (23:18)
[2021-02-10] VITALS (7 sets, daily range): BP systolic 130–156; BP diastolic 7–82; PULSE 73–90; RESP 18–20; TEMP 36.7–37.2; O2SAT 93–98
[2021-02-10 06:10] LABS: Absolute Lymphocyte Count 1.35 X10^3/uL (0.83-4.51); Absolute Neutrophil Count 3.4 X10^3/uL (2.0-7.7); Basophil# 0.01 X10^3/uL; Basophil% 0.2 % (0-1); Eosinophils% 1.8 % (0-5); Hemoglobin 10.5 g/dL (12.0-15.0); Lymphocyte # 1.35 X10^3/ul (0.83-4.51); Lymphocyte % 24.7 % (19-41); Mean Corp Hgb Conc 29.2 g/dL (32-36); Mean Corpuscular Hgb 28.9 pg (27.0-32.0); Mean Corpuscular Volume 99.2 fL (81-99); Mean Platelet Vol. 11.3 fl (6.2-12.0); Monocyte# 0.59 X10^3/uL; Monocyte% 10.8 % (0-10); NRBC Flagged by Analyzer 0 % (0-5); Neutrophil # 3.39 X10^3/uL (2.7-7.7); Platelet Count 165 K/mm3 (150-450); RBC Distribution Width CV 15.2 % (11.6-14.6); RBC Distribution Width SD 55.7 fl (35.1-43.9); Red Blood Count 3.63 M/mm3 (4.2-5.4); White Blood Count 5.5 K/mm3 (4.4-11.0)
[2021-02-10 06:37] LABS: ALB/GLOB Ratio 0.6 RATIO (0.9-2.4); AST(SGOT) 16 U/L (15-37); Alanine Aminotransfer ALT/SGPT 30 U/L (13-56); Albumin, Serum 2.9 g/dL (3.2-5.0); Alkaline Phosphatase 65 U/L (45-117); Anion Gap 3 (5-15); BUN 19 mg/dL (7-18); BUN/Creat Ratio 26.2 RATIO (10-20); Calcium,Total 8.6 mg/dL (8.5-10.1); Chloride 97 mmol/L (98-107); Creatinine, Serum 0.73 mg/dL (0.55-1.02); EST Glomerular Filtration Rate 86 mL/min (>60); Est Glom Filt Rate - Afr Amer 104 mL/min (>60); Globulin 4.5 g/dL (2.2-4.2); Glucose 123 mg/dL (74-106); Potassium 4.2 mmol/L (3.5-5.1); Protein, Total 7.4 g/dL (6.4-8.2); Sodium Level 140 mmol/L (136-145)
[2021-02-10 07:15] LABS: Bedside Glucose 115 mg/dL (70-110)
[2021-02-10] MEDS: Enoxaparin 30 MG/0.3 ML Syringe SC ×2 (09:45→21:35)
[2021-02-10] MEDS: Levothyroxine 100 MCG Tablet 200 MCG PO (09:46)
[2021-02-10] MEDS: Metoprolol Tartrate 25 MG Tablet PO (09:46)
[2021-02-10] MEDS: Gabapentin 100 MG Capsule 200 MG PO ×3 (09:46→16:52)
[2021-02-10] MEDS: Furosemide 40 MG Tablet PO ×2 (09:46→16:52)
[2021-02-10] MEDS: Multivitamins,Therapeutic Tablet 1 TABLET PO (09:46)
[2021-02-10] MEDS: dexAMETHasone 4 MG Tablet 6 MG PO (09:46)
[2021-02-10] MEDS: Potassium Chloride Oral Tablet 20 MEQ PO (09:47)
[2021-02-10] MEDS: Spironolactone 25 MG Tablet PO (09:47)
--- NOTE | 2021-02-10 10:49 | NURSING ---
daughter came to visit pt. explained to daughter that due to covid restrictions that she is unable to visit. that daughter has been exposed and is unable to visit at this time. daughter upset stated that she has tested negative, and was told she could visit mother. she is concerned that mother is depressed and not taken care of, she stated that mother expressed that she does not feel safe at this hospital, that no one is helping her, and mother feels like a burden to staff. explained that the dr had been in to see her and tried to encouraged pt to get up and move, to not use purewick to use bathroom instead. dr told pt that she can not refuse therapy as she did yesterday. nursing encouraged daughter to talk to her mother to increase activity, sit in chair, walk to bathroom, with assistance. gave daughter pt advocate number to express their concerns with him.
--- NOTE | 2021-02-10 11:12 | PN.HOSP_ITS ---
Subjective Subjective Patient seen and examined. She had a list of complaints today, and said she had asked for a bigger chair because she didnt think she fit in her chair she had. She also said she hadnt been working well with therapy because she was used to a cane to ambulate at home, but was being given a rollator here, which she didnt like. Patient was upset that the insurance companies werent open over the weekend so she could get her precert to go to a rehab facility in [place], which is where she preferred to go because her brother in law went there and did well. I discussed with patient about cooperating [facility] physical therapy, but she said she couldnt do much of what she was asked to do by PT because her chair was too small. She remains on 3L of oxygen. patient also wants to keep the pure wick in constantly, as she says she has some incontinence with coughing. I explained to patient that she would need to have the purewick removed in order for us to be able to assess her ambulation and saturation whilst ambulating. Objective Data Objective Data Vital Signs: Vital Signs Temp Pulse Resp BP Pulse Ox 98.9 F 90 18 156/7 H 98 02/10/21 09:50 02/10/21 09:50 02/10/21 09:50 02/10/21 09:50 02/10/21 09:50 Oxygen Flow Rate (L/min) [At 91 REST with Oxygen] Oxygen Flow Rate (L/min) [ 8 AMBULATING with Oxygen #3] Oxygen Flow Rate (L/min) [ 4 AMBULATING with Oxygen #2] Oxygen Flow Rate (L/min) [ 3 AMBULATING with Oxygen #1] Oxygen Flow Rate (L/min) 3 Oxygen Delivery Method Nasal Cannula Weight: 378 lb 15.594 oz Body Mass Index (BMI) 54.3 Intake & Output: Intake and Output for Last 24 Hours 02/08/21 02/09/21 02/10/21 23:59 23:59 23:59 Intake Total 1100 / 1100 1100 / 1100 Output Total 2150 / 2150 1800 / 1800 600 / 600 Balance -1050 / -1050 -700 / -700 -600 / -600 Lab / Micro Data Result Diagrams: 02/10/21 05:35 02/10/21 05:35 Labs: Laboratory Results - last 24 hr 02/09/21 11:20: POC Glucose 167 H 02/09/21 17:17: POC Glucose 224 H 02/09/21 21:43: POC Glucose 187 H 02/10/21 05:35: WBC 5.5, RBC 3.63 L, Hgb 10.5 L, Hct 36.0 L, MCV 99.2 H, MCH 28.9, MCHC 29.2 L, RDW Std Deviation 55.7 H, RDW Coeff of Danielle 15.2 H, Plt Count 165, MPV 11.3, Immature Gran % (Auto) 0.500, Neut % (Auto) 62.0, Lymph % (Auto) 24.7, [place] % (Auto) 10.8 H, Eos % (Auto) 1.8, Baso % (Auto) 0.2, Absolute Neuts (auto) 3.4, Absolute Lymphs (auto) 1.35, Nucleated RBC % 0 02/10/21 05:35: Sodium 140, Potassium 4.2, Chloride 97 L, Carbon Dioxide 40.0 H, Anion Gap 3 L, BUN 19 H, Creatinine 0.73, Estim Creat Clear Calc 85.30, Est GFR (MDRD) Af Amer 104, Est GFR (MDRD) Non-Af 86, BUN/Creatinine Ratio 26.2 H, Glucose 123 H, Calcium 8.6, Total Bilirubin 0.50, AST 16, ALT 30, Alkaline Phosphatase 65, Total Protein 7.4, Albumin 2.9 L, Globulin 4.5 H, Albumin/Globulin Ratio 0.6 L 02/10/21 06:49: POC Glucose 115 H Micro: Microbiology 02/07/21 02:40 Nasal Secretion SARS-CoV-2 Antigen (Rapid) - Final Rhythm Strip Rhythm Strip: Sinus Rhythm Rate: 80 Ectopy: None Physical Exam Const alert, oriented x3 and no apparent distress Constitutional Narrative: super morbid obesity General Appearance: cooperative Exam Limitations: no limitations Nutritional Appearance: morbidly obese HEENT normocephalic, head/scalp atraumatic, moist oral mucous membranes and oropharynx normal Eyes PERRL, EOMs intact bilaterally and conjunctivae normal Neck no lymphadenopathy, supple and no JVD Resp normal respiratory effort, no retractions and no use of accessory muscles Auscultation: diminished lung sounds; Negative for crackles, rales, rhonchi or wheezes Cardio regular rate, regular rhythm, S1 normal heart sound, S2 normal heart sound and no murmurs GI normal to inspection, nondistended, normoactive bowel sounds, soft to palpation, non-tender and non-distended; Negative for hepatosplenomegaly Extremity normal to inspection, full ROM and no clubbing, cyanosis or edema General Extremity: edema bilateral; Negative for clubbing or cyanosis Skin no rashes or lesions noted Skin Narrative: Chronic venous stasis changes bilaterally Neuro oriented x3, CN's II-XII intact bilaterally, no focal motor deficits and no sensory deficits noted Sensorium / Orientation: awake and alert Psych affect normal Appearance: appropriate Assessment & Plan Assessment/Plan (1) Acute hypoxemic respiratory failure: (2) Pneumonia due to COVID-19 virus: PLAN: #Acute hypoxic failure due to cOVID 19 pneumonia * Currently on 3 L of oxygen. On remdesivir and Decadron. * Titrate oxygen to maintain saturation above 90%. * Breathing treatments with bronchodilators. * #Hypothyroidism: On Synthroid #Hypertension: On metoprolol #Type 2 diabetes mellitus with peripheral neuropathy * On Lantus. Insulin sliding scale. Accu-Cheks AC at bedtime. * #Iron deficiency anemia: Hemoglobin is around 10. Thought to be due to hemorrhoidal bleeding. Follow-up with general surgeon on outpatient basis #Elevated D-dimer: likely due to covid. On lovenox #DVT prophylaxis: Lovenox Disposition: Awaiting placement. * Patient is not cooperative with the medical team and physical therapy team. I spent about 20 minutes today counseling patient about the importance of cooperating with the goals of care was in the hospital and explained to her that we will try to get her a bigger chair but this should not preclude her cooperating with physical therapy or occupational therapy. I also explained to patient that having the pure wick in constantly could serve as a nidus of infection and if she could pass urine on her own, that was better than always having the pure wick. I also explained to patient about importance of ambulating and the importance of PT/OT and also counseled her that Rollator was a good alternative for the cane while she was in the hospital and she could use that to ambulate to the bathroom. Charges/Coding Visit Charges Inpatient E&M: 21922 Subs Hosp L2
[2021-02-10] MEDS: Insulin Lispro 100 UNIT/ML INSULN.PEN SC ×3 (11:39→21:36)
[2021-02-10] MEDS: Menthol/Lanolin/Calamine/Znox 113 GM Tube 1 APPLIC TOPICAL ×2 (11:40→21:36)
[2021-02-10] MEDS: Nystatin Powder 15gm Bottle 1 APPLIC TOPICAL ×2 (11:40→21:38)
[2021-02-10 11:55] LABS: Bedside Glucose 224 mg/dL (70-110)
[2021-02-10 18:16] LABS: Bedside Glucose 210 mg/dL (70-110)
[2021-02-10] MEDS: 0.9% Saline Lock 10 ML Syringe IV (21:36)
[2021-02-11] VITALS (12 sets, daily range): BP systolic 124–166; BP diastolic 60–92; PULSE 70–79; RESP 18–20; TEMP 36.3–36.7; O2SAT 92–97
[2021-02-11 06:55] LABS: Bedside Glucose 186 mg/dL (70-110)
[2021-02-11 09:06] LABS: Bedside Glucose 106 mg/dL (70-110)
[2021-02-11] MEDS: Levothyroxine 100 MCG Tablet 200 MCG PO (09:28)
[2021-02-11] MEDS: Multivitamins,Therapeutic Tablet 1 TABLET PO (09:28)
[2021-02-11] MEDS: Furosemide 40 MG Tablet PO ×2 (09:28→16:13)
[2021-02-11] MEDS: Gabapentin 100 MG Capsule 200 MG PO ×3 (09:29→16:13)
[2021-02-11] MEDS: Spironolactone 25 MG Tablet PO (09:29)
[2021-02-11] MEDS: dexAMETHasone 4 MG Tablet 6 MG PO (09:29)
[2021-02-11] MEDS: Potassium Chloride Oral Tablet 20 MEQ PO (09:29)
[2021-02-11] MEDS: Nystatin Powder 15gm Bottle 1 APPLIC TOPICAL ×2 (09:30→23:00)
[2021-02-11] MEDS: Menthol/Lanolin/Calamine/Znox 113 GM Tube 1 APPLIC TOPICAL ×2 (09:30→23:00)
[2021-02-11] MEDS: Enoxaparin 30 MG/0.3 ML Syringe SC ×2 (09:31→22:59)
[2021-02-11] MEDS: Metoprolol Tartrate 25 MG Tablet PO (09:32)
[2021-02-11] MEDS: Acetaminophen 325 MG Tablet 650 MG PO ×2 (09:34→23:07)
--- NOTE | 2021-02-11 10:37 | PN.HOSP_ITS ---
Subjective Subjective Patient seen and examined. She had no active complaints and had an uneventful night. She remains on 3 L of oxygen. Review of systems otherwise negative. Objective Data Objective Data Vital Signs: Vital Signs Temp Pulse Resp BP Pulse Ox 97.4 F L 74 18 124/60 H 92 02/11/21 09:38 02/11/21 09:38 02/11/21 09:38 02/11/21 09:38 02/11/21 09:38 Oxygen Flow Rate (L/min) [At 91 REST with Oxygen] Oxygen Flow Rate (L/min) [ 8 AMBULATING with Oxygen #3] Oxygen Flow Rate (L/min) [ 4 AMBULATING with Oxygen #2] Oxygen Flow Rate (L/min) [ 3 AMBULATING with Oxygen #1] Oxygen Flow Rate (L/min) 3 Oxygen Delivery Method Nasal Cannula Weight: 378 lb 15.594 oz Body Mass Index (BMI) 54.3 Intake & Output: Intake and Output for Last 24 Hours 02/09/21 02/10/21 02/11/21 23:59 23:59 23:59 Intake Total 1100 / 1100 2600 / 2600 250 / 250 Output Total 1800 / 1800 1700 / 1700 200 / 200 Balance -700 / -700 900 / 900 50 / 50 Lab / Micro Data Result Diagrams: 02/10/21 05:35 02/10/21 05:35 Labs: Laboratory Results - last 24 hr 02/10/21 11:33: POC Glucose 224 H 02/10/21 16:01: POC Glucose 210 H 02/10/21 21:28: POC Glucose 186 H 02/11/21 06:58: POC Glucose 106 Micro: Microbiology 02/07/21 02:40 Nasal Secretion SARS-CoV-2 Antigen (Rapid) - Final Rhythm Strip Rhythm Strip: Sinus Rhythm Rate: 80 Ectopy: None Physical Exam Const alert, oriented x3 and no apparent distress Constitutional Narrative: super morbid obesity General Appearance: cooperative Exam Limitations: no limitations Nutritional Appearance: morbidly obese HEENT normocephalic, head/scalp atraumatic, moist oral mucous membranes and oropharynx normal Eyes PERRL, EOMs intact bilaterally and conjunctivae normal Neck no lymphadenopathy, supple and no JVD Resp normal respiratory effort, no retractions and no use of accessory muscles Auscultation: diminished lung sounds; Negative for crackles, rales, rhonchi or wheezes Cardio regular rate, regular rhythm, S1 normal heart sound, S2 normal heart sound and no murmurs GI normal to inspection, nondistended, normoactive bowel sounds, soft to palpation, non-tender and non-distended; Negative for hepatosplenomegaly Extremity normal to inspection, full ROM and no clubbing, cyanosis or edema General Extremity: edema bilateral; Negative for clubbing or cyanosis Peripheral Pulses: Yes pulses 2+ throughout Skin no rashes or lesions noted Skin Narrative: Chronic venous stasis changes bilaterally Neuro oriented x3, CN's II-XII intact bilaterally, no focal motor deficits and no sensory deficits noted Sensorium / Orientation: awake and alert Psych affect normal Appearance: appropriate Assessment & Plan Assessment/Plan (1) Acute hypoxemic respiratory failure: (2) Pneumonia due to COVID-19 virus: PLAN: #Acute hypoxic failure due to cOVID 19 pneumonia * remains on 3 L of oxygen. On remdesivir and Decadron. * Titrate oxygen to maintain saturation above 90%. * Breathing treatments with bronchodilators. * #Hypothyroidism: On Synthroid #Hypertension: On metoprolol #Type 2 diabetes mellitus with peripheral neuropathy * On Lantus. Insulin sliding scale. Accu-Cheks AC at bedtime. * #Iron deficiency anemia: * Hemoglobin is around 10. Thought to be due to hemorrhoidal bleeding. * Follow-up with general surgeon on outpatient basis * give anusol for hemorrhoids #Elevated D-dimer: likely due to covid. On lovenox #DVT prophylaxis: Lovenox Disposition: Awaiting placement. * Charges/Coding Visit Charges Inpatient E&M: 31569 Subs Hosp L2
[2021-02-11 11:50] LABS: Bedside Glucose 142 mg/dL (70-110)
[2021-02-11] MEDS: Insulin Lispro 100 UNIT/ML INSULN.PEN SC ×2 (16:13→23:00)
[2021-02-11] MEDS: Hydrocortisone 25 MG Suppository RC (16:13)
[2021-02-11 16:26] LABS: Bedside Glucose 237 mg/dL (70-110)
[2021-02-11 23:21] LABS: Bedside Glucose 167 mg/dL (70-110)
[2021-02-12] VITALS (12 sets, daily range): BP systolic 130–143; BP diastolic 68–84; PULSE 71–83; RESP 18; TEMP 36.2–36.5; O2SAT 81–96
[2021-02-12] MEDS: Ibuprofen 600 MG Tablet PO (04:50)
[2021-02-12 06:40] LABS: Bedside Glucose 123 mg/dL (70-110)
[2021-02-12] MEDS: Enoxaparin 30 MG/0.3 ML Syringe SC ×2 (09:19→21:47)
[2021-02-12] MEDS: Levothyroxine 100 MCG Tablet 200 MCG PO (09:20)
[2021-02-12] MEDS: Furosemide 40 MG Tablet PO ×2 (09:20→17:02)
[2021-02-12] MEDS: Metoprolol Tartrate 25 MG Tablet PO (09:20)
[2021-02-12] MEDS: Gabapentin 100 MG Capsule 200 MG PO ×3 (09:20→17:02)
[2021-02-12] MEDS: Potassium Chloride Oral Tablet 20 MEQ PO (09:21)
[2021-02-12] MEDS: dexAMETHasone 4 MG Tablet 6 MG PO (09:21)
[2021-02-12] MEDS: Spironolactone 25 MG Tablet PO (09:21)
[2021-02-12] MEDS: Multivitamins,Therapeutic Tablet 1 TABLET PO ×2 (09:21)
[2021-02-12] MEDS: Menthol/Lanolin/Calamine/Znox 113 GM Tube 1 APPLIC TOPICAL ×2 (09:26→21:42)
[2021-02-12] MEDS: Nystatin Powder 15gm Bottle 1 APPLIC TOPICAL ×2 (09:26→21:43)
--- NOTE | 2021-02-12 10:41 | CASEMGMT ---
Social Work Note SW received message from RN Lance at [facility] stating she never got PT/OT notes, requested PT/OT be faxed. SW faxed updated clinicals, including PT/OT to [facility] ([phone]). JANAY also updated that pt would like to speak to SW, SW will meet with pt as time allows. Plan: SNF pending acceptance and pre-cert Mindi Solomon OCCUPATIONAL THERAPY DEPARTMENT CHAIR, MUSIC EDUCATION DIRECTOR
--- NOTE | 2021-02-12 11:57 | CASEMGMT ---
Social Work Note SW placed a call to pt's room to speak to pt. Pt had questions on when she would be discharged to [facility]. SW explained referral process and that this worker is still waiting to hear back from [facility] to inquire if they accept pt or not. SW informed pt that once a facility accepts pt, pre-cert will be needed, which likely will not happen today. Pt states understanding. Plan: [facility] pending acceptance and pre-cert Mindi Solomon INTEGRATED LOGISTICS SUPPORT MANAGER, PIANO MOVER
[2021-02-12] MEDS: Insulin Lispro 100 UNIT/ML INSULN.PEN SC ×3 (12:24→21:44)
--- NOTE | 2021-02-12 12:25 | PN.HOSP_ITS ---
Subjective Subjective Patient seen and examined. She had no active complaints and felt well. She was on 2 L of oxygen at time of review. Review of symptoms otherwise negative. Objective Data Objective Data Vital Signs: Vital Signs Temp Pulse Resp BP Pulse Ox 97.4 F L 73 18 130/68 H 93 02/12/21 09:18 02/12/21 09:20 02/12/21 09:18 02/12/21 09:18 02/12/21 09:18 Oxygen Flow Rate (L/min) [At 91 REST with Oxygen] Oxygen Flow Rate (L/min) [ 8 AMBULATING with Oxygen #3] Oxygen Flow Rate (L/min) [ 2 AMBULATING with Oxygen #2] Oxygen Flow Rate (L/min) [ 0 AMBULATING with Oxygen #1] Oxygen Flow Rate (L/min) 2 Oxygen Delivery Method Nasal Cannula Weight: 378 lb 15.594 oz Body Mass Index (BMI) 54.3 Intake & Output: Intake and Output for Last 24 Hours 02/10/21 02/11/21 02/12/21 23:59 23:59 23:59 Intake Total 2600 / 2600 650 / 650 Output Total 1700 / 1700 1650 / 1650 300 / 300 Balance 900 / 900 -1000 / -1000 -300 / -300 Lab / Micro Data Result Diagrams: 02/10/21 05:35 02/10/21 05:35 Labs: Laboratory Results - last 24 hr 02/11/21 16:12: POC Glucose 237 H 02/11/21 22:45: POC Glucose 167 H 02/12/21 06:12: POC Glucose 123 H Micro: Microbiology 02/07/21 02:40 Nasal Secretion SARS-CoV-2 Antigen (Rapid) - Final Rhythm Strip Rhythm Strip: Sinus Rhythm Rate: 80 Ectopy: None Physical Exam Const alert, oriented x3 and no apparent distress Constitutional Narrative: super morbid obesity General Appearance: cooperative Exam Limitations: no limitations Nutritional Appearance: morbidly obese HEENT normocephalic, head/scalp atraumatic, moist oral mucous membranes and oropharynx normal Head and Scalp: normocephalic Eyes PERRL, EOMs intact bilaterally and conjunctivae normal Neck no lymphadenopathy, supple and no JVD Resp normal respiratory effort, no retractions and no use of accessory muscles Resp Narrative: on 2L of oxygen. Auscultation: diminished lung sounds; Negative for crackles, rales, rhonchi or wheezes Cardio regular rate, regular rhythm, S1 normal heart sound, S2 normal heart sound and no murmurs GI normal to inspection, nondistended, normoactive bowel sounds, soft to palpation, non-tender and non-distended; Negative for hepatosplenomegaly Extremity normal to inspection, full ROM and no clubbing, cyanosis or edema General Extremity: edema bilateral; Negative for clubbing or cyanosis Peripheral Pulses: Yes pulses 2+ throughout Skin no rashes or lesions noted Skin Narrative: Chronic venous stasis changes bilaterally Neuro oriented x3, CN's II-XII intact bilaterally, no focal motor deficits and no s ensory deficits noted Sensorium / Orientation: awake and alert Psych affect normal Appearance: appropriate Assessment & Plan Assessment/Plan (1) Acute hypoxemic respiratory failure: (2) Pneumonia due to COVID-19 virus: PLAN: #Acute hypoxic failure due to cOVID 19 pneumonia * now on 2 L of oxygen. On remdesivir and Decadron. * Titrate oxygen to maintain saturation above 90%. * Breathing treatments with bronchodilators. * #Hypothyroidism: On Synthroid #Hypertension: On metoprolol #Type 2 diabetes mellitus with peripheral neuropathy * On Lantus. Insulin sliding scale. Accu-Cheks AC at bedtime. * #Iron deficiency anemia: * Thought to be due to hemorrhoidal bleeding. * Follow-up with general surgeon on outpatient basis * give anusol for hemorrhoids #Hemorrhoids: on anusol. #Elevated D-dimer: likely due to covid. On lovenox #DVT prophylaxis: Lovenox Disposition: Awaiting placement. Patient wants to go to [facility] facility. case management and social work on board. * Charges/Coding Visit Charges Inpatient E&M: 01101 Subs Hosp L2
--- NOTE | 2021-02-12 12:29 | CASEMGMT ---
Social Work Note SW placed a call to Jacque at [facility]. Jacque confirmed that she received updated clinicals with PT/OT this morning. Jacque states pt would be going to their SNF/TCU unit. Jacque states she will review referral and then give this worker a call back with determination. Plan: SNF pending acceptance and pre-cert Mindi Solomon MSW, AUTOMATIC PROFILE SHAPER OPERATOR
[2021-02-12] MEDS: Hydrocortisone 25 MG Suppository RC (12:30)
--- NOTE | 2021-02-12 12:54 | CHAPLAIN ---
Type of Pastoral Visit ___ Initial Visit ___ Follow-up Visit ___ On-call Visit ___ General Patient Visit ___ Spiritual Assessment ___ Family Conference ___ Bereavement ___ Rapid Response ___ Code Blue _x__ Other (describe below) Pastoral Care Referral From _x__ Patient ___ Family ___ Nurse ___ Physician ___ Sample Shoe Inspector And Reworker ___ Community Services Coordinator ___ Other (describe below) Sacrament/Intervention _x__ Active listening ___ Anointing ___ Mu-Ism ___ Bereavement ___ Communion ___ Promise exploration ___ ___ Life review _x__ Prayer ___ Reconciliation ___ Sacrament of Sick ___ Supportive presence ___ Wedding ___ Other (describe below) Pastoral Comments SW notified this bushing and broach operator of patient's desire for a call; pt was able to answer the phone and talk without issue into this isolation room; pt did agree that she wanted to talk with someone and have prayer; pt is concerned about getting into a rehab facility at discharge; pt is concerned for her in ICU who is not doing as well; pt expressed difficulty being in isolation and not able to see or talk to people; pt states that daughter is visiting with her now
--- NOTE | 2021-02-12 13:29 | CASEMGMT ---
Social Work Note SW received call from Kristal at [facility] stating they cannot accept pt as pt as been argumentative and noncooperative with staff. SW reviewed chart. Pt had mentioned [facility], [facility], [facility] and [facility] as possible SNF. [facility] has no beds at this time. [facility], [facility] and [facility] didn't show up as in network with pt's insurance. SW called [facility] to inquire about pt's insurance and spoke with Srini. Srini states they do accept pt's insurance. SW placed a call to pt and informed her that [facility] cannot accept pt. SW placed a call to pt and updated her that [facility] is not able to accept pt. SW asked for other choices. Pt mentioned [facility]. SW informed pt that [facility] is not in network with pt's insurance so she would need to pay out of network benefits. SW informed pt that this worker did call [facility] and was told that they do accept pt's insurance. Pt agreeable to referral being sent to [facility]. SW faxed referral to [facility]. Plan: SNF pending acceptance and pre-cert Mindi Solomon HARNESS INSPECTOR, RETAIL ADMINISTRATIVE ASSISTANT
[2021-02-12] MEDS: Acetaminophen 325 MG Tablet 650 MG PO ×2 (14:26→21:40)
[2021-02-12 15:16] LABS: Bedside Glucose 151 mg/dL (70-110)
--- NOTE | 2021-02-12 16:21 | CASEMGMT ---
Social Work Note SW received message from Srini at [facility] stating they do take some MMO but they do not take pt's MMO so they are not able to accept pt. SW placed a call to pt and updated her that [facility] is stating they cannot accept pt due to not taking pt's insurance. SW informed pt that this worker is aware she doesn't want to go to [facility], informed pt that this worker can send a referral to [facility] as they are listed as they take pt's insurance. Pt agreeable to referral being sent to [facility]. Pt states you know I am getting really frustrated. SW offered support to pt. Reaffirmed with pt that the SNF process can be frustrating and that this worker is working with pt to find a SNF for pt. SW informed pt that this worker will continue to work on finding SNF for pt and will keep pt updated. Pt states understanding. JANAY placed a call to [facility] and spoke with Steff in admissions. Steff states they do have beds available, agreeable to reviewing referral. JANAY faxed referral to [facility]. Plan: SNF pending acceptance and pre-cert Mindi Solomon HEATING SYSTEMS INSTALLER, BELLSTAFF
[2021-02-12 17:21] LABS: Bedside Glucose 248 mg/dL (70-110)
[2021-02-13] VITALS (7 sets, daily range): BP systolic 130–140; BP diastolic 62–87; PULSE 68–91; RESP 16–18; TEMP 36.2–36.4; O2SAT 86–96
[2021-02-13] MEDS: MELATONIN 3 MG TABLET PO (00:50)
[2021-02-13] MEDS: hydrOXYzine 10 MG Tablet PO (00:57)
[2021-02-13 01:06] LABS: Bedside Glucose 155 mg/dL (70-110)
[2021-02-13] MEDS: Acetaminophen 325 MG Tablet 650 MG PO ×2 (06:52→13:46)
[2021-02-13 07:00] LABS: Bedside Glucose 109 mg/dL (70-110)
[2021-02-13] MEDS: Enoxaparin 30 MG/0.3 ML Syringe SC (08:18)
[2021-02-13] MEDS: Levothyroxine 100 MCG Tablet 200 MCG PO (08:19)
[2021-02-13] MEDS: Metoprolol Tartrate 25 MG Tablet PO (08:19)
[2021-02-13] MEDS: Multivitamins,Therapeutic Tablet 1 TABLET PO (08:19)
[2021-02-13] MEDS: Furosemide 40 MG Tablet PO (08:19)
[2021-02-13] MEDS: dexAMETHasone 4 MG Tablet 6 MG PO (08:19)
[2021-02-13] MEDS: Gabapentin 100 MG Capsule 200 MG PO ×2 (08:20→11:46)
[2021-02-13] MEDS: Spironolactone 25 MG Tablet PO (08:20)
[2021-02-13] MEDS: Potassium Chloride Oral Tablet 20 MEQ PO (08:20)
[2021-02-13] MEDS: Menthol/Lanolin/Calamine/Znox 113 GM Tube 1 APPLIC TOPICAL (08:21)
[2021-02-13] MEDS: Nystatin Powder 15gm Bottle 1 APPLIC TOPICAL (08:26)
--- NOTE | 2021-02-13 09:42 | CASEMGMT ---
Addendum entered by Lorena Gilman 02/13/21 14:02: Spoke with wound nurse who sent patient home with a bag of supplies for wound care. Notified Bette at [facility] as she requested this. Addendum entered by Lorena Gilman 02/13/21 12:34: TC to pt room, pt is agreeable to having meds brought up to room. Pt is agreeable. TC to Jefry in pharmacy, he is aware. Addendum entered by Lorena Gilman 02/13/21 12:25: TC to [facility] pharmacy, [employer] savings card applied, pt cost is $0. Addendum entered by Lorena Gilman 02/13/21 11:38: Referral faxed to [facility] for O2, Delia is aware of referral and portable tank needing to be delivered to room. Addendum entered by Lorena Gilman 02/13/21 11:28: Received acceptance from [facility]. Original Note: CRISTINA ZIMMER made aware pt would like to dc home. Pt qualifies for home O2 with exertion. TC to pt room, pt states she is interested in home therapy and would like the same agency her had which is [facility]. She denies need for list of local in network providers with quality ratings. Pt is aware to call O2 company once she gets home. Pt requested that she go home with [facility], notified [employer] board of education secretary. TC to Bette at [facility], referral made, awaiting acceptance.
--- NOTE | 2021-02-13 10:31 | CASEMGMT ---
Social Work Note SW placed a call to [facility] and spoke with Steff. JANAY updated Steff to disregard referral as pt is going home now. Steff states oh that's good because I was going to have to decline her. Plan: Home Mindi Solomon SALES REPRESENTATIVE RAW FIBERS, ENT PHYSICIAN
--- NOTE | 2021-02-13 10:54 | DS.PCM_ITS ---
Providers Date of Admission: 02/06/21 Primary Care Physician: Dr. Lidya Mathias MD Consultations 02/07/21 07:39 Consult: Onc/Wound/channel process supervisor Routine Comment: Reason for Consult:: rhys RAMSEY- recommendations Reason For Visit: ACUTE HYPOXIMIC RESPIR FAILURE 2NDARY TO COVID PNE Diagnosis Discharge Diagnosis (1) Acute hypoxemic respiratory failure: Status: Acute Code(s): J96.01 - Acute respiratory failure with hypoxia (2) Pneumonia due to COVID-19 virus: Status: Acute Code(s): U07.1 - COVID-19; J12.82 - Pneumonia due to coronavirus disease 2019 Medications at Discharge Home Medications furosemide 40 mg PO BIDLX 07/15/13 gabapentin 200 mg PO TIDCM 07/15/13 ibuprofen 600 mg PO Q6H PRN PRN #30 tablet 07/15/13 levothyroxine 200 mcg PO DAILY 07/15/13 metoprolol tartrate 25 mg PO DAILY 07/15/13 multivitamin with folic acid [Thera] 1 tab PO DAILY 07/15/13 potassium chloride [Klor-Con M20] 20 meq PO DAILY 07/15/13 spironolactone 25 mg PO DAILY 07/15/13 gabapentin 200 mg PO QHS PRN 12/10/16 letrozole [Femara] 2.5 mg PO DAILY 12/10/16 apixaban [Eliquis] 2.5 mg PO BID #28 tab 02/13/21 dexamethasone [Decadron] 6 mg PO DAILY #4 tab 02/13/21 Hospital Course Operations None Procedures None Summary of Care Provided Minutes Spent on Discharge: 40 Hospital Course: Patient is a 61 y/o F with a PMH as outlined who was admitted with a complaint of progressively worsening shortness of breath which started about a week prior to admission. She had received 2 doses of Pfizer vaccination, with the last dose being ~ April or May 2020. She hadnt yet received the booster. She was saturating at 73% on room air so her PCP was called and family was asked to bring her into the ED. On admission Covid test was positive. D- dimer was also elevated at 1.37 but CTA of the chest was negative for PE. She was admitted and managed for acute hypoxic respiratory failure due to COVID-19 pneumonia. She was put on remdesivir and Decadron. Shortness of breath gradually improved and she was weaned down to 2 L of oxygen and on day of discharge patient was on room air. She completed a course of remdesivir. She had a walking pulse ox which showed that she required up to 4 L of oxygen with ambulation. Patient was initially agreeable to going to a nursing facility for further rehab but subsequently decided to go home with home health care. She was discharged home on 02/13/2021 on a 4course of decadron to complete a 10-day course. Due to elevated D-dimer, she was also discharged on p.o. Eliquis 2.5 mg twice daily for 2 weeks for thromboprophylaxis. She is to follow-up with her primary care doctor in 1 to 2 weeks. Patient seen and examined prior to discharge. She had no complaints and felt much better. Review of systems otherwise negative. Labs and vitals reviewed. Medication reviewed and reconciled. Physical Exam Const alert, oriented x3 and no apparent distress Constitutional Narrative: super morbid obesity General Appearance: cooperative Exam Limitations: no limitations Nutritional Appearance: morbidly obese HEENT normocephalic, head/scalp atraumatic, moist oral mucous membranes and oropharynx normal Eyes PERRL, EOMs intact bilaterally and conjunctivae normal Neck no lymphadenopathy, supple and no JVD Resp normal respiratory effort, no retractions and no use of accessory muscles Resp Narrative: on 2L of oxygen. Auscultation: diminished lung sounds; Negative for crackles, rales, rhonchi or wheezes Cardio regular rate, regular rhythm, S1 normal heart sound, S2 normal heart sound and no murmurs GI normal to inspection, nondistended, normoactive bowel sounds, soft to palpation, non-tender and non-distended; Negative for hepatosplenomegaly Extremity normal to inspection, full ROM and no clubbing, cyanosis or edema General Extremity: edema bilateral; Negative for clubbing or cyanosis Skin no rashes or lesions noted Skin Narrative: Chronic venous stasis changes bilaterally Neuro oriented x3, CN's II-XII intact bilaterally, no focal motor deficits and no sensory deficits noted Sensorium / Orientation: awake and alert Psych affect normal Appearance: appropriate Weight / BMI Weight Weight: 378 lb 15.594 oz Body Mass Index (BMI) 54.3 ABG / Lab / Microbiology Data Result Diagrams: 02/10/21 05:35 02/10/21 05:35 Laboratory: Laboratory Results - last 24 hr 02/12/21 12:22: POC Glucose 151 H 02/12/21 16:58: POC Glucose 248 H 02/12/21 21:35: POC Glucose 155 H 02/13/21 06:47: POC Glucose 109 Microbiology: Microbiology 02/07/21 02:40 Nasal Secretion SARS-CoV-2 Antigen (Rapid) - Final D/C Instructions Discharge Diet: Low fat / Low cholesterol and 1800 Calorie Control Diet Discharge Activity: Return to Normal Activity Weight Bearing Status: Weight bearing as tolerated Call your doctor if you observe: Fever of 101 or Higher, Shortness of breath, Dizziness, Swelling in the ankles and Chest pain Meaningful Use Info Meaningful Use Diagnoses (Choose all that apply): None applicable Discharge Plan Admission Admit Date/Time: 02/06/21 21:12 Primary Reason for Your Visit: acute hypoxic respiratory failure due to covid 19 pneumonia Attending Provider: Chelo Sanders Primary Care Provider: Lidya Mathias Instructions Additional Instructions / Restrictions: Remain in self isolation till February 27, 2021. Use oxygen for shortness of breath as needed. Discharge Orders/Prescriptions Prescriptions: New dexamethasone [Decadron] 6 mg tablet 6 mg PO DAILY Qty: 4 RF: 0 Eliquis 2.5 mg tablet 2.5 mg PO BID Qty: 28 RF: 0 Continued furosemide 40 MG tablet 40 mg PO BIDLX RF: 0 spironolactone 25 MG tablet 25 mg PO DAILY RF: 0 potassium chloride [Klor-Con M20] 20 MEQ tablet,ER particles/crystals 20 meq PO DAILY RF: 0 levothyroxine 150 MCG tablet 200 mcg PO DAILY RF: 0 gabapentin 100 MG capsule 200 mg PO TIDCM RF: 0 metoprolol tartrate 25 MG tablet 25 mg PO DAILY RF: 0 multivitamin with folic acid [Thera] 1 TABLET tablet 1 tab PO DAILY RF: 0 ibuprofen 600 MG tablet 600 mg PO Q6H PRN PRN (Reason: Pain) Qty: 30 RF: 0 gabapentin 100 MG capsule 200 mg PO QHS PRN (Reason: Pain) RF: 0 letrozole [Femara] 2.5 MG tablet 2.5 mg PO DAILY RF: 0 Referrals / Follow Up: Lidya Mathias MD [Primary Care Provider] - Within 2 Weeks Disposition Disposition (needs filled in before D/C Order can be placed): Home Health Service Charges/Coding Visit Charges Inpatient E&M: 05020 Disch Hosp
[2021-02-13] MEDS: Insulin Lispro 100 UNIT/ML INSULN.PEN SC (11:38)
--- NOTE | 2021-02-13 12:18 | CASEMGMT ---
Social Work Note Pt is being discharged home. SW in to speak with pt. Pt states that she is feeling good and is excited to be going home. Pt states that her son is home and will be there when pt is discharged home. SW spoke with pt about her still being at [facility]. Pt states he's in a safe place and getting the care that he needs. SW offered support to pt. Pt denied additional needs or concerns at this time. Mindi Solomon LIME BOILER, ORDER PLANNER
[2021-02-13 21:31] LABS: Bedside Glucose 189 mg/dL (70-110)
== END 2021-02-13 15:30 | disposition home health service (06) | DRG 177 ==
LOC: ED 21:08 → MS3 21:22
PROVIDERS: Family Medicine; Admitting Provider Hospitalist; Emergency Provider Emergency Medicine; PCP Internal Medicine; Visit Provider Student in an Organized Health Care Education/Training Program
DX: U07.1 COVID-19 (principal); J12.82 Pneumonia due to coronavirus disease 2019; J96.01 Acute respiratory failure with hypoxia; Z68.43 Body mass index [BMI] 50.0-59.9, adult; E86.0 Dehydration; E11.40 Type 2 diabetes mellitus with diabetic neuropathy, unspecified; E11.65 Type 2 diabetes mellitus with hyperglycemia; D50.9 Iron deficiency anemia, unspecified; I10 Essential (primary) hypertension; E03.9 Hypothyroidism, unspecified; K64.9 Unspecified hemorrhoids; R32 Unspecified urinary incontinence; I89.0 Lymphedema, not elsewhere classified; E66.01 Morbid (severe) obesity due to excess calories; Z86.718 Personal history of other venous thrombosis and embolism; Z85.3 Personal history of malignant neoplasm of breast; Z85.42 Personal history of malignant neoplasm of other parts of uterus; Z99.81 Dependence on supplemental oxygen; Z79.890 Hormone replacement therapy; Z79.899 Other long term (current) drug therapy
CPT/HCPCS: 36415; 71045; 71275; 80053; 82607; 82728; 82746; 82962; 83540; 83550; 84145; 84484; 85025; 85045; 85379; 87426; 93005; 94762; 97110; 97162; 97166; 97530; 97535; 99285; J7040; J7050; Q9967; A4216; J0248; J2916

== ENCOUNTER 2021-05-17 12:38 | Inpatient (IN) | payer OTHER, SELFPAY ==
[2021-05-17] VITALS (26 sets, daily range): BP systolic 113–177; BP diastolic 57–92; PULSE 76–93; RESP 12–34; TEMP 35.7–38.2; O2SAT 91–99; BMI 56.2; BMI 55.0
--- NOTE | 2021-05-17 12:58 | EKG12_ITS ---
Test Reason : Blood Pressure : / mmHG Vent. Rate : 091 BPM Atrial Rate : 091 BPM P-R Int : 164 ms QRS Dur : 104 ms QT Int : 366 ms P-R-T Axes : 059 -51 029 degrees QTc Int : 450 ms Normal sinus rhythm Left axis deviation Low voltage QRS Inferior infarct , age undetermined Abnormal ECG Confirmed by PADMINI RIZO, ALMA ([id number]), international editorial producer BOBBI NEVAREZ ([id number]) on 05/18/2021 2:45:04 PM Referred By: BORIS Confirmed By:ALMA WASHINGTON MD
--- NOTE | 2021-05-17 12:59 | EDS_ITS ---
HPI <GIBRAN Burciaga - Last Filed: 05/17/21 16:17> History of Present Illness Chief Complaint: Shortness of Breath Narrative Narrative: 61-year-old female history of diabetes, morbid obesity, history of DVT, respiratory failure, COVID-19 presents the emergency department with lethargic, increased shortness of breath. Patient wears 4 L of nasal cannula oxygen at home, per the squad, she was 83% on that, and lethargic, they put her on a nonrebreather. Patient states that she has been feeling short of breath ever since she had Covid however she does note that she has been much more lethargic and unable to care for self. Patient denies any fevers or chills however states she has continuous cough as well as difficulty getting air in. Denies any nausea vomiting. PFSH <GIBRAN Burciaga - Last Filed: 05/17/21 16:17> [facility] Medical History (Updated 05/17/21 @ 15:14 by Savi Sam) Acute hypoxemic respiratory failure Anemia Anxiety Cancer Congestive heart failure (CHF) COVID-19 Diabetes DVT (deep venous thrombosis) GERD (gastroesophageal reflux disease) History of diabetes mellitus History of morbid obesity Hypertension Hypothyroidism Hypoxia Non-smoker On home oxygen therapy Pneumonia due to COVID-19 virus Pneumonitis Home Medications furosemide 40 mg PO BIDLX 07/15/13 [History Last Taken 05/17/21] ibuprofen 600 mg PO Q6H PRN PRN #30 tablet 07/15/13 [Rx Last Taken Unknown] metoprolol tartrate 25 mg PO BID 07/15/13 [History Last Taken 05/17/21] multivitamin with folic acid [Thera] 1 tab PO DAILY 07/15/13 [History Last Taken 05/16/21] potassium chloride [Klor-Con M20] 20 meq PO DAILY 07/15/13 [History Last Taken 05/16/21] spironolactone 25 mg PO DAILY 07/15/13 [History Last Taken 05/17/21] albuterol sulfate 2.5 mg INHALATION Q4H PRN 05/17/21 [History Last Taken 05/16/21] ammonium lactate 1 ea TOPICAL DAILY 05/17/21 [History Last Taken 05/15/21] benzonatate 100 mg PO TID PRN 05/17/21 [History Last Taken 05/15/21] dulaglutide [Trulicity] 0.75 mg SUBCUT DAWN 05/17/21 [History Last Taken 05/13/21] exemestane 25 mg PO DAILY 05/17/21 [History Last Taken 05/17/21] fluticasone propionate 2 spray INTRANASAL DAILY 05/17/21 [History Last Taken 05/17/21] gabapentin 1,200 mg PO BID 05/17/21 [History Last Taken 05/17/21] hydroxyzine HCl 25 mg PO DAILY PRN 05/17/21 [History Last Taken Unknown] levothyroxine [Euthyrox] 200 mcg PO DAILY 05/17/21 [History Last Taken 05/16/21] metformin 1,000 mg PO BID 05/17/21 [History Last Taken 05/17/21] metoclopramide HCl 10 mg PO Q6H PRN 05/17/21 [History Last Taken 05/17/21] Allergy/AdvReac Type Severity Reaction Status Date / Time diphenhydramine HCl Allergy HEART Verified 02/02/21 10:37 [From Benadryl] RACES levofloxacin [From Levaquin] Allergy HEART Verified 02/02/21 10:37 RACE AND FEELS SOB oxytocin [From Pitocin] AdvReac FLOATING Verified 02/02/21 10:37 FEELING ENVIROMENTAL AdvReac Other Uncoded 02/02/21 10:37 Family History Other Diabetes Surgical History History of reduction surgery of left breast Social History Smoking Status: Never smoker ROS <GIBRAN Burciaga - Last Filed: 05/17/21 16:17> ROS ED ROS Narrative Constitutional: Negative for fever, chills, weight loss or gain. Positive for w eakness, lethargic Eyes: Negative for vision loss, vision change, double vision ENT: Negative for any hearing changes, ringing in the ears, discharge, pain Nose: Negative for any congestion, runny nose, sinus pain, allergies Throat: Negative for any sore throat, swelling, voice changes, Cardiovascular: Negative for any chest pain, tightness, palpitations, racing heartbeat Respiratory: Negative for any hemoptysis. Positive for dyspnea, dyspnea on exertion, cough, sputum production Gastrointestinal: Negative for any abdominal pain, nausea, vomiting, diarrhea, constipation, blood in stool, blood in vomit : Negative for any urinary frequency, incontinence, dysuria, retention, blood in urine Muscle skeletal: Negative for any muscle joint pain, stiffness, myalgias, arthralgias, neck pain, back pain Neurological: Negative for any headache, dizziness, syncope, numbness or tingling. Patient does appear to be lethargic. Skin: Negative for any rashes, lumps, itching, abrasions, lacerations Psychiatric: Negative for any depression, anxiety, stress, suicidal ideation, homicidal ideation Hematologic: Negative for any easy bruising, excessive bruising, easy bleeding Allergies: Negative for any eczema, hives, rash EXAM <GIBRAN Burciaga - Last Filed: 05/17/21 16:17> Physical Exam Narrative Exam Narrative: Patient arrives on a nonrebreather at 97%, per the squad, on her 4 L of oxygen she was 83%. Patient does appear lethargic, patient is slouched down, does arrive to verbal stimuli. Per the staff, she was falling asleep during questioning. Const Vital Signs: 05/17/21 12:39 05/17/21 12:43 05/17/21 13:10 Temperature 96.3 F L 96.8 F L Temperature Source Temporal Temporal Pulse Rate 93 92 85 Respiratory Rate 24 H 24 H 26 H Respiratory Effort Short of Breath Respiratory Depth Shallow Respiratory Pattern Normal Blood Pressure 175/75 H 175/75 H Blood Pressure Mean 108 108 Pulse Ox 97 97 93 Oxygen Delivery Method Non-Rebreather Non-Rebreather Oxygen Flow Rate (L/min) 10 10 Fraction of Inspired Oxygen (FIO2) 50 05/17/21 13:43 05/17/21 13:45 05/17/21 14:22 Temperature 97.6 F L 97.4 F L Temperature Source Temporal Temporal Pulse Rate 82 88 86 Respiratory Rate 24 H 27 H 24 H Respiratory Effort Respiratory Depth Respiratory Pattern Blood Pressure 161/74 H 149/68 H Blood Pressure Mean 103 95 Pulse Ox 95 97 Oxygen Delivery Method Bi-pap Room Air Oxygen Flow Rate (L/min) Fraction of Inspired Oxygen (FIO2) 05/17/21 15:20 05/17/21 15:30 05/17/21 15:31 Temperature 99.5 F H 99.5 F H Temperature Source Core Core Pulse Rate 89 92 85 Respiratory Rate 24 H 34 H 26 H Respiratory Effort Respiratory Depth Respiratory Pattern Blood Pressure 166/72 H 162/64 H Blood Pressure Mean 103 96 Pulse Ox 93 91 95 Oxygen Delivery Method Bi-pap Bi-pap Oxygen Flow Rate (L/min) Fraction of Inspired Oxygen (FIO2) 45 05/17/21 16:13 05/17/21 16:21 05/17/21 16:39 Temperature 100 F H 100.1 F H 100.2 F H Temperature Source Core Core Core Pulse Rate 88 88 88 Respiratory Rate 20 H 20 H 16 Respiratory Effort Respiratory Depth Respiratory Pattern Blood Pressure 175/92 H 177/89 H Blood Pressure Mean 119 118 Pulse Ox 95 97 96 Oxygen Delivery Method Bi-pap Bi-pap Bi-pap Oxygen Flow Rate (L/min) Fraction of Inspired Oxygen (FIO2) Positive obese Nutritional Appearance: obese HEENT Reports dry mucous membranes Mouth ED: Yes dry mucous membranes Mouth: dry mucous membranes Eyes PERRL and EOMs intact bilaterally Neck no lymphadenopathy Neck Narrative: Patient does have a large neck Chest Wall inspection of chest normal Resp Resp Narrative: Patient is tachypneic, patient has crackles throughout pulmonary exam. Auscultation: rhonchi and diminished lung sounds Cardio Cardio Narrative: Patient does have a 2/6 systolic murmur Back/Spine no CVA tenderness Extremity Extremity Narrative: Patient does have what appears to be chronic edematous bilateral lower extremities, General Extremety ED: Yes edema General Extremity: edema Neuro Sensorium / Orientation: lethargic Motor Exam: general weakness Psych mental status grossly normal <Dr. Andrei Jones MD - Last Filed: 05/17/21 16:55> Physical Exam Const Vital Signs: 05/17/21 12:39 05/17/21 12:43 05/17/21 13:10 Temperature 96.3 F L 96.8 F L Temperature Source Temporal Temporal Pulse Rate 93 92 85 Respiratory Rate 24 H 24 H 26 H Respiratory Effort Short of Breath Respiratory Depth Shallow Respiratory Pattern Normal Blood Pressure 175/75 H 175/75 H Blood Pressure Mean 108 108 Pulse Ox 97 97 93 Oxygen Delivery Method Non-Rebreather Non-Rebreather Oxygen Flow Rate (L/min) 10 10 Fraction of Inspired Oxygen (FIO2) 50 05/17/21 13:43 05/17/21 13:45 05/17/21 14:22 Temperature 97.6 F L 97.4 F L Temperature Source Temporal Temporal Pulse Rate 82 88 86 Respiratory Rate 24 H 27 H 24 H Respiratory Effort Respiratory Depth Respiratory Pattern Blood Pressure 161/74 H 149/68 H Blood Pressure Mean 103 95 Pulse Ox 95 97 Oxygen Delivery Method Bi-pap Room Air Oxygen Flow Rate (L/min) Fraction of Inspired Oxygen (FIO2) 05/17/21 15:20 05/17/21 15:30 05/17/21 15:31 Temperature 99.5 F H 99.5 F H Temperature Source Core Core Pulse Rate 89 92 85 Respiratory Rate 24 H 34 H 26 H Respiratory Effort Respiratory Depth Respiratory Pattern Blood Pressure 166/72 H 162/64 H Blood Pressure Mean 103 96 Pulse Ox 93 91 95 Oxygen Delivery Method Bi-pap Bi-pap Oxygen Flow Rate (L/min) Fraction of Inspired Oxygen (FIO2) 45 05/17/21 16:13 05/17/21 16:21 05/17/21 16:39 Temperature 100 F H 100.1 F H 100.2 F H Temperature Source Core Core Core Pulse Rate 88 88 88 Respiratory Rate 20 H 20 H 16 Respiratory Effort Respiratory Depth Respiratory Pattern Blood Pressure 175/92 H 177/89 H Blood Pressure Mean 119 118 Pulse Ox 95 97 96 Oxygen Delivery Method Bi-pap Bi-pap Bi-pap Oxygen Flow Rate (L/min) Fraction of Inspired Oxygen (FIO2) [facility] <GIBRAN Burciaga - Last Filed: 05/17/21 16:17> [facility] Narrative Medical decision making narrative: Patient arrives in mild to moderate respiratory distress, patient is lethargic, patient is currently on a nonrebreather on initial assessment satting at 98% however is tachypneic and not very responsive. Patient did receive a full septic work-up, patient's CBC was unremarkable, BMP was unremarkable, patient's chest x-ray was consistent with congestive heart failure. Patient was ami placed on BiPAP, patient's ABG was a low pH with a CO2 of 119. Patient did respond well to BiPAP however patient will receive IV Zosyn, vancomycin to cover for antibiotics. Patient's urinalysis was negative for infection. ICU, hospitalist was called. Patient was negative for COVID-19, influenza. Lab Data Attestation: I reviewed the patient's lab results. Labs: Laboratory Results - last 24 hr 05/17/21 05/17/21 05/17/21 13:00 13:00 13:00 WBC 10.9 RBC 3.27 L Hgb 9.9 L Hct 35.5 L MCV 108.6 H MCH 30.3 MCHC 27.9 L RDW Std Deviation 59.4 H RDW Coeff of Danielle 14.7 H Plt Count 148 L MPV 11.4 Immature Gran % (Auto) 0.800 Neut % (Auto) 82.2 H Lymph % (Auto) 7.4 L [place] % (Auto) 8.5 Eos % (Auto) 0.7 Baso % (Auto) 0.4 Absolute Neuts (auto) 8.9 H Absolute Lymphs (auto) 0.81 L Nucleated RBC % 0 Sodium 139 Potassium 4.8 Chloride 97 L Carbon Dioxide 44.0 H Anion Gap -2 L BUN 18 Creatinine 0.69 Estim Creat Clear Calc 90.24 Est GFR (MDRD) Af Amer 111 Est GFR (MDRD) Non-Af 92 BUN/Creatinine Ratio 26.2 H Glucose 183 H Lactic Acid Calcium 8.9 Troponin I High Sens 8 B-Natriuretic Peptide 84.1 Urine Color Urine Clarity Urine pH Ur Specific Eaton Urine Protein Urine Glucose (UA) Urine Ketones Urine Occult Blood Urine Nitrite Urine Bilirubin Urine Urobilinogen Ur Leukocyte Esterase Urine RBC Urine WBC Ur Squamous Epith Cells Urine Bacteria Urine Mucus 05/17/21 05/17/21 13:00 14:15 WBC RBC Hgb Hct MCV MCH MCHC RDW Std Deviation RDW Coeff of Danielle Plt Count MPV Immature Gran % (Auto) Neut % (Auto) Lymph % (Auto) [place] % (Auto) Eos % (Auto) Baso % (Auto) Absolute Neuts (auto) Absolute Lymphs (auto) Nucleated RBC % Sodium Potassium Chloride Carbon Dioxide Anion Gap BUN Creatinine Estim Creat Clear Calc Est GFR (MDRD) Af Amer Est GFR (MDRD) Non-Af BUN/Creatinine Ratio Glucose Lactic Acid 1.1 Calcium Troponin I High Sens B-Natriuretic Peptide Urine Color Yellow Urine Clarity Clear Urine pH 5.0 Ur Specific Eaton 1.025 Urine Protein 30 H Urine Glucose (UA) Normal Urine Ketones Negative Urine Occult Blood Negative Urine Nitrite Negative Urine Bilirubin Negative Urine Urobilinogen Normal Ur Leukocyte Esterase Negative Urine RBC 0 SEEN Urine WBC 0-5 SEEN Ur Squamous Epith Cells 0 SEEN Urine Bacteria 0 SEEN Urine Mucus 0 SEEN ABG Data ABG results: ABG 05/17/21 05/17/21 13:09 14:28 Specimen Type ART ART Sample Site L Radial L Radial pH 7.19 L* 7.21 L Bicarbonate Actual 45.8 H 45.0 H Total CO2 50 49 Base Excess 18 H 17 H O2 Saturation 95 88 L O2 % 50 ABG pCO2 119.6 H* 111.6 H* ABG pO2 101 H 72 L Test Positive Positive Respiration Rate 12 O2 Delivery Device NRB BiPAP Liter Flow 15.0 Vent Mode avaps Tidal Volume 450 POC PEEP 10 Crit Call To/Read Back Yes Yes Blood Gas Notified Whom jones Radiography Diagnostic Testing: Clinical Impression(s) from Imaging Studies Chest X-Ray 05/17/21 13:08 IMPRESSION: And CHF. Electronically Signed: Yusuf Saldivar MD at 13:50 EDT , ADDENDUM: 05/17/21 1503 Chest CTA 05/17/21 15:55 IMPRESSION: 1. No CT evidence of pulmonary embolism. 2. Bilateral pneumonia, pulmonary edema, or ARDS. 3. Moderate bilateral pleural effusions. Electronically Signed: Slade Romeo MD at 16:34 EDT , <Dr. Andrei Jones MD - Last Filed: 05/17/21 16:55> [facility] MDM Narrative Medical decision making narrative: Attending note: 61-year-old female history of underlying lung disease. On oxygen at home. About 2 months ago was admitted for Covid pneumonitis. was admitted the same time and he due to Covid complications on his hospitalization. She denies any chest pain. He says she has been more short of breath. Denies fever. She also has a history of some mild CHF developed swelling but states it is her baseline. No hemoptysis. 61-year-old female vital signs are stable. Pulse ox is 97% on oxygen. No hypoxia on O2. H EENT exam unremarkable. Neck nontender. Lungs coarse breath sounds. Few scattered wheezes. No rhonchi. Equal symmetrical. Heart regular rhythm rate about 90. Abdomen obese but soft. Moving all 4 extremities. 1+ edema bilaterally. Calves are nontender. Neurologically she is awake and alert. 61-year-old short of breath with respiratory failure status post COVID 2 months ago. Differential would include COPD exacerbation, CHF, cardiac event, pneumonia versus other etiologies. Patient will need admitted. She will be treated with aerosols. Solu-Medrol. BiPAP. Lab Data Attestation: I reviewed the patient's lab results. Lab results narrative: CBC White count 10.9 H&H 9.95. She has a chronic anemia. Platelets 148. Electrolytes H&H of 18 and 0.6. Glucose 183. Troponin normal at 8. BNP unremarkable at 84. Lactic acid normal. UA negative. Chest x-ray looks like bilateral lower lobe pneumonias. CTA shows no PE and suspected bila teral lower lobe pneumonias and pleural effusions. Labs: Laboratory Results - last 24 hr 05/17/21 05/17/21 05/17/21 13:00 13:00 13:00 WBC 10.9 RBC 3.27 L Hgb 9.9 L Hct 35.5 L MCV 108.6 H MCH 30.3 MCHC 27.9 L RDW Std Deviation 59.4 H RDW Coeff of Danielle 14.7 H Plt Count 148 L MPV 11.4 Immature Gran % (Auto) 0.800 Neut % (Auto) 82.2 H Lymph % (Auto) 7.4 L [place] % (Auto) 8.5 Eos % (Auto) 0.7 Baso % (Auto) 0.4 Absolute Neuts (auto) 8.9 H Absolute Lymphs (auto) 0.81 L Nucleated RBC % 0 Sodium 139 Potassium 4.8 Chloride 97 L Carbon Dioxide 44.0 H Anion Gap -2 L BUN 18 Creatinine 0.69 Estim Creat Clear Calc 90.24 Est GFR (MDRD) Af Amer 111 Est GFR (MDRD) Non-Af 92 BUN/Creatinine Ratio 26.2 H Glucose 183 H Lactic Acid Calcium 8.9 Troponin I High Sens 8 B-Natriuretic Peptide 84.1 Urine Color Urine Clarity Urine pH Ur Specific Eaton Urine Protein Urine Glucose (UA) Urine Ketones Urine Occult Blood Urine Nitrite Urine Bilirubin Urine Urobilinogen Ur Leukocyte Esterase Urine RBC Urine WBC Ur Squamous Epith Cells Urine Bacteria Urine Mucus 05/17/21 05/17/21 13:00 14:15 WBC RBC Hgb Hct MCV MCH MCHC RDW Std Deviation RDW Coeff of Danielle Plt Count MPV Immature Gran % (Auto) Neut % (Auto) Lymph % (Auto) [place] % (Auto) Eos % (Auto) Baso % (Auto) Absolute Neuts (auto) Absolute Lymphs (auto) Nucleated RBC % Sodium Potassium Chloride Carbon Dioxide Anion Gap BUN Creatinine Estim Creat Clear Calc Est GFR (MDRD) Af Amer Est GFR (MDRD) Non-Af BUN/Creatinine Ratio Glucose Lactic Acid 1.1 Calcium Troponin I High Sens B-Natriuretic Peptide Urine Color Yellow Urine Clarity Clear Urine pH 5.0 Ur Specific Eaton 1.025 Urine Protein 30 H Urine Glucose (UA) Normal Urine Ketones Negative Urine Occult Blood Negative Urine Nitrite Negative Urine Bilirubin Negative Urine Urobilinogen Normal Ur Leukocyte Esterase Negative Urine RBC 0 SEEN Urine WBC 0-5 SEEN Ur Squamous Epith Cells 0 SEEN Urine Bacteria 0 SEEN Urine Mucus 0 SEEN ABG Data ABG results: ABG 05/17/21 05/17/21 13:09 14:28 Specimen Type ART ART Sample Site L Radial L Radial pH 7.19 L* 7.21 L Bicarbonate Actual 45.8 H 45.0 H Total CO2 50 49 Base Excess 18 H 17 H O2 Saturation 95 88 L O2 % 50 ABG pCO2 119.6 H* 111.6 H* ABG pO2 101 H 72 L Test Positive Positive Respiration Rate 12 O2 Delivery Device NRB BiPAP Liter Flow 15.0 Vent Mode avaps Tidal Volume 450 POC PEEP 10 Crit Call To/Read Back Yes Yes Blood Gas Notified Whom jones Radiography Chest X-Ray - ED: 1 View, Read by ED Physician, Read by Radiologist, Heart, Mediastinum, Bony Structures and CHF Diagnostic Testing: Clinical Impression(s) from Imaging Studies Chest X-Ray 05/17/21 13:08 IMPRESSION: And CHF. Electronically Signed: Yusuf Saldivar MD at 13:50 EDT , ADDENDUM: 05/17/21 1503 Chest CTA 05/17/21 15:55 IMPRESSION: 1. No CT evidence of pulmonary embolism. 2. Bilateral pneumonia, pulmonary edema, or ARDS. 3. Moderate bilateral pleural effusions. Electronically Signed: Slade Romeo MD at 16:34 EDT , Chest x-ray, portable, single view interpreted by myself and radiologist looks like CHF. CT of the chest closely bilateral lower lobe pneumonia. Also pleural effusions. No PE. Rhythm Strip Rhythm Strip: Sinus Rhythm Rate: 91 Ectopy: None EKG Initial EKG: Attestation: I personally reviewed and interpreted this EKG as follows: Interpretation: Sinus Rhythm and No Acute Injury Pattern Comments: Normal sinus rhythm rate of 91. Old inferior infarct. Incomplete left bundle branch block. Unchanged from prior EKG from January 2021. Prior EKG tracings: available for review Prior: Unchanged <Dr. Andrei Jones MD - Last Filed: 05/17/21 16:55> Critical Care Time Critical Care Time: Yes Critical care time (excluding procedures): 30-74 minutes, Including time spent:, Discussing w/Patient &/or Family/Control Board Operator, Discussing w/Consultants, Arranging Admission or Transfer, Performing Direct Patient Care at Bedside and - (35 min) Discharge Plan Dx/Rx/DC Orders Clinical Impression: Respiratory failure, Acute respiratory acidosis, Bilateral interstitial pneumonia Disposition Disposition: Acute Care [facility]
--- NOTE | 2021-05-17 13:08 | RAD_ITS ---
STUDY: X-RAY CHEST REASON FOR EXAM: Female, 61 years old. Shortness of breath TECHNIQUE: Single AP portable view of the chest. COMPARISON: Comparison is made with prior study dated 02/06/2021. FINDINGS: EKG electrodes are seen. There is evidence of CHF. Blunting of both costophrenic angles. There is moderate cardiac enlargement. Normal mediastinum and jayesh. Normal visualized pulmonary arteries. Normal visualized aortic arch and descending thoracic aorta. There are diffuse degenerative changes of the visualized thoracic spine. Normal visualized ribs, clavicles, and shoulders. There is no demonstrated abnormality of the visualized soft tissue structures of the upper abdomen. RAD/Chest 1 View (Portable) IMPRESSION: And CHF. Electronically Signed: Yusuf Saldivar MD at 13:50 EDT ,
[2021-05-17 13:15] LABS: Absolute Lymphocyte Count 0.81 X10^3/uL (0.83-4.51); Absolute Neutrophil Count 8.9 X10^3/uL (2.0-7.7); Basophil# 0.04 X10^3/uL; Basophil% 0.4 % (0-1); Eosinophil# 0.08 X10^3/uL; Eosinophils% 0.7 % (0-5); Hematocrit 35.5 % (37-47); Hemoglobin 9.9 g/dL (12.0-15.0); Lymphocyte # 0.81 X10^3/ul (0.83-4.51); Lymphocyte % 7.4 % (19-41); Mean Corp Hgb Conc 27.9 g/dL (32-36); Mean Corpuscular Hgb 30.3 pg (27.0-32.0); Mean Corpuscular Volume 108.6 fL (81-99); Mean Platelet Vol. 11.4 fl (6.2-12.0); Monocyte# 0.92 X10^3/uL; Monocyte% 8.5 % (0-10); NRBC Flagged by Analyzer 0 % (0-5); Neutrophil # 8.94 X10^3/uL (2.7-7.7); Neutrophil % 82.2 % (47-70); Platelet Count 148 K/mm3 (150-450); RBC Distribution Width CV 14.7 % (11.6-14.6); RBC Distribution Width SD 59.4 fl (35.1-43.9); Red Blood Count 3.27 M/mm3 (4.2-5.4); White Blood Count 10.9 K/mm3 (4.4-11.0)
[2021-05-17 13:16] LABS: Allen Test Positive; Base Excess 18 mmol/L (-2 to +2); Bicarbonate 45.8 mmol/L (22-26); Blood Gas Specimen Type ART; O2 Delivery Device NRB; PO2 101 mmHG (75-100); SITE L Radial; SO2 95 % (95-99); Total Carbon Dioxide 50 mmol/L; pCO2 119.6 mmHg (35-45); pH 7.19 (7.35-7.45)
[2021-05-17 13:32] LABS: Anion Gap -2 (5-15); BUN 18 mg/dL (7-18); BUN/Creat Ratio 26.2 RATIO (10-20); Calcium,Total 8.9 mg/dL (8.5-10.1); Chloride 97 mmol/L (98-107); Creatinine, Serum 0.69 mg/dL (0.55-1.02); EST Glomerular Filtration Rate 92 mL/min (>60); Est Glom Filt Rate - Afr Amer 111 mL/min (>60); Estimated Creatinine Clearance 90.24 ml/min; Glucose 183 mg/dL (74-106); Potassium 4.8 mmol/L (3.5-5.1); Sodium Level 139 mmol/L (136-145); Troponin-I HS 8 pg/mL (3.0-54.0)
[2021-05-17 13:37] LABS: Lactic Acid 1.1 mmol/L (0.4-1.9)
[2021-05-17] MEDS: MethylPREDNISolone 125 MG/2 ML Vial IV (13:37)
[2021-05-17 13:40] LABS: BNP,B-Type NATRIURETIC PEPTIDE 84.1 pg/mL (0-100)
[2021-05-17] MEDS: Albuterol 2.5 MG/3 ML VIAL.NEB. INHALATION (13:42)
[2021-05-17] MEDS: Ipratropium/Albuterol Sulfate 3 ML AMPUL.NEB INHALATION (13:42)
[2021-05-17 14:18] LABS: Bacteria 0 SEEN /hpf (None Seen); Mucous, Urine 0 SEEN /hpf (<or=2+); Red Blood Cells-Urine 0 SEEN /hpf (0-5); Squamous Epithelial Cells - UA 0 SEEN /hpf (5-10)
[2021-05-17 14:24] LABS: Color, Urine Yellow (Yellow); Glucose, Dipstick Normal (Normal); Ketone-Dipstick Negative (Negative); Leukocyte Esterase-Dipstick Negative /ul (Negative); Nitrite-Dipstick Negative (Negative); Occult Blood-Urine Negative /ul (Negative); Protein-Dipstick 30 mg/dl (Negative); Specific Gravity, Urine 1.025 (1.002-1.030); Urine Bilirubin Dipstick Negative (Negative); Urine Clarity Clear (Clear); Urine Urobilinogen Normal (Normal)
--- NOTE | 2021-05-17 14:28 | CM.ED ---
JANAY Note Referral Source: RN Curtis Referral Reason: Emotional Support JANAY met with patient's son, Ronal Read. He said that he was concerned as patient did not want to come back to [facility] but he wanted her to come back as they had all the records. Ronal talked about how their father had in January and how their mom, the patient, did not get to say goodbye. Ronal talked about how he cleans and showers daily to ensure that patient is in a clean environment and then is frustrated as family members do not wear masks when they visit. Patient's son also talked about how people tell him others have had it worse and appears to be diminishing his feelings. JANAY provided emotional support. Patient talked about how his mom, he felt, was not treated right when she was here last time and he spoke to Patient Advocate. SW offered to have patient's son speak to CM Manager Emergency but patient's son declined. JANAY advised patient's son of the bereavement services provided by [facility]. JANAY provided patient's son with handout on [facility] Bereavement Services and also a handout from [facility] of their Crisis Response program. Plan: Emotional Support provided Khloe STEEL
[2021-05-17 14:34] LABS: White Blood Cells 0-5 SEEN /hpf (0-5)
[2021-05-17 14:36] LABS: Allen Test Positive; Base Excess 17 mmol/L (-2 to +2); Blood Gas Specimen Type ART; FI02 50; Mode avaps; O2 Delivery Device BiPAP; PEEP 10; PO2 72 mmHG (75-100); RR 12; SITE L Radial; SO2 88 % (95-99); Total Carbon Dioxide 49 mmol/L; Vt 450; pCO2 111.6 mmHg (35-45); pH 7.21 (7.35-7.45)
--- NOTE | 2021-05-17 15:18 | ED.RN ---
HOSPITALIST PAGED FOR DR ESCALANTE
--- NOTE | 2021-05-17 15:36 | NURSING ---
ICU [facility] RESP FAILURE, BILATERAL PNEUMONIA, COPD, RESP ACIDOSIS
--- NOTE | 2021-05-17 15:55 | CT_ITS ---
STUDY: CTA CHEST REASON FOR EXAM: Female, 61 years old. resp failure RADIATION DOSAGE (If Supplied By Facility): CTDIvol = ( 32.85 ) mGy, DLP = ( 569.04 ) mGycm TECHNIQUE: The examination was performed with the intravenous administration of IV 100mL Isovue-370. Post-processing of the angiographic images was performed, with multiplanar reformation and 3D reconstruction. Individualized dose optimization techniques were used for this CT. COMPARISON: 02/06/2021 FINDINGS: Normal enhancement of the main pulmonary artery and right and left pulmonary arteries. Normal enhancement of the bilateral peripheral pulmonary arteries. There is no demonstrated pulmonary embolism. Normal thoracic aorta and visualized great vessels. There is no demonstrated aortic dissection. Normal heart and pericardium. Normal mediastinum. Normal hilar regions. Normal visualized trachea and bronchi. The lungs are well expanded. Patchy alveolar groundglass opacities in both lungs consistent with bilateral pneumonia, pulmonary edema, or ARDS. Moderate bilateral pleural effusions. Normal chest wall structures. Normal osseous structures. Normal visualized upper abdomen. CT/CTA Chest W/WO Contrast IMPRESSION: 1. No CT evidence of pulmonary embolism. 2. Bilateral pneumonia, pulmonary edema, or ARDS. 3. Moderate bilateral pleural effusions. Electronically Signed: Slade Romeo MD at 16:34 EDT ,
[2021-05-17 17:05] LABS: Allen Test Positive; Base Excess 19 mmol/L (-2 to +2); Bicarbonate 46.4 mmol/L (22-26); Blood Gas Specimen Type ART; FI02 45; Mode avaps; O2 Delivery Device BiPAP; PEEP 10; PO2 64 mmHG (75-100); RR 12; SITE L Radial; SO2 85 % (95-99); Total Carbon Dioxide 50 mmol/L; Vt 500; pCO2 106.6 mmHg (35-45); pH 7.25 (7.35-7.45)
--- NOTE | 2021-05-17 17:36 | CM.ED ---
SW met with patient's son and provided emotional support. Khloe STEEL
--- NOTE | 2021-05-17 18:07 | CM.ED ---
SW spoke to patients son and daughter. Patient's son said that he is worried about patient but is tired of talking today. SW advised patient's family to follow up with the ICU social work job titles if needs arise. Emotional support provided. Khloe STEEL
--- NOTE | 2021-05-17 18:22 | HP.PCM.HOS_ITS ---
HPI - General General Date of Admission: 05/17/21 HPI Narrative YASMANI MCLAIN, is a 61 F who presents with altered mental status and respiratory failure. Family noticed that she has been more somnolent over the last several days and they thought this was secondary to just not being able to sleep very well however today she was not responding to questions appropriately so they called EMS. She has been on 4 L nasal cannula since she had Covid back in January 2021. When EMS arrived they noted that she was about 83% on her 4 L and was lethargic. Family has not noticed any increased sputum production, and they have not noted any recent illness or fevers. Unfortunately she is not very interactive for history taking. In the ER CTA of the chest demonstrated no PEs but did show bilateral pneumonia versus pulmonary edema versus ARDS. She was started on BiPAP because they obtained an ABG that demonstrated a pH of 7.19 and a PCO2 of 119.6. This has improved since she has been in the ER with BiPAP [facility] Medical History (Updated 05/17/21 @ 15:14 by Savi Sam) Acute hypoxemic respiratory failure Anemia Anxiety Cancer Congestive heart failure (CHF) COVID-19 Diabetes DVT (deep venous thrombosis) GERD (gastroesophageal reflux disease) History of diabetes mellitus History of morbid obesity Hypertension Hypothyroidism Hypoxia Non-smoker On home oxygen therapy Pneumonia due to COVID-19 virus Pneumonitis Home Medications furosemide 40 mg PO BIDLX 07/15/13 [History Last Taken 05/17/21] ibuprofen 600 mg PO Q6H PRN PRN #30 tablet 07/15/13 [Rx Last Taken Unknown] metoprolol tartrate 25 mg PO BID 07/15/13 [History Last Taken 05/17/21] multivitamin with folic acid [Thera] 1 tab PO DAILY 07/15/13 [History Last Taken 05/16/21] potassium chloride [Klor-Con M20] 20 meq PO DAILY 07/15/13 [History Last Taken 05/16/21] spironolactone 25 mg PO DAILY 07/15/13 [History Last Taken 05/17/21] albuterol sulfate 2.5 mg INHALATION Q4H PRN 05/17/21 [History Last Taken 05/16/21] ammonium lactate 1 ea TOPICAL DAILY 05/17/21 [History Last Taken 05/15/21] benzonatate 100 mg PO TID PRN 05/17/21 [History Last Taken 05/15/21] dulaglutide [Trulicity] 0.75 mg SUBCUT DAWN 05/17/21 [History Last Taken 05/13/21] exemestane 25 mg PO DAILY 05/17/21 [History Last Taken 05/17/21] fluticasone propionate 2 spray INTRANASAL DAILY 05/17/21 [History Last Taken 05/17/21] gabapentin 1,200 mg PO BID 05/17/21 [History Last Taken 05/17/21] hydroxyzine HCl 25 mg PO DAILY PRN 05/17/21 [History Last Taken Unknown] levothyroxine [Euthyrox] 200 mcg PO DAILY 05/17/21 [History Last Taken 05/16/21] metformin 1,000 mg PO BID 05/17/21 [History Last Taken 05/17/21] metoclopramide HCl 10 mg PO Q6H PRN 05/17/21 [History Last Taken 05/17/21] Allergy/AdvReac Type Severity Reaction Status Date / Time diphenhydramine HCl Allergy HEART Verified 02/02/21 10:37 [From Benadryl] RACES levofloxacin [From Levaquin] Allergy HEART Verified 02/02/21 10:37 RACE AND FEELS SOB oxytocin [From Pitocin] AdvReac FLOATING Verified 02/02/21 10:37 FEELING ENVIROMENTAL AdvReac Other Uncoded 02/02/21 10:37 Family History Other Diabetes Surgical History History of reduction surgery of left breast Social History Smoking Status: Never smoker ROS Review of Systems ROS Unobtainable: due to encephalopathy Vital Signs Vital Signs Vital Signs: 05/17/21 12:39 05/17/21 12:43 05/17/21 13:10 Temperature 96.3 F L 96.8 F L Temperature Source Temporal Temporal Pulse Rate 93 92 85 Respiratory Rate 24 H 24 H 26 H Respiratory Effort Short of Breath Respiratory Depth Shallow Respiratory Pattern Normal Blood Pressure 175/75 H 175/75 H Blood Pressure Mean 108 108 Pulse Ox 97 97 93 Oxygen Delivery Method Non-Rebreather Non-Rebreather Oxygen Flow Rate (L/min) 10 10 Fraction of Inspired Oxygen (FIO2) 50 05/17/21 13:43 05/17/21 13:45 05/17/21 14:22 Temperature 97.6 F L 97.4 F L Temperature Source Temporal Temporal Pulse Rate 82 88 86 Respiratory Rate 24 H 27 H 24 H Respiratory Effort Respiratory Depth Respiratory Pattern Blood Pressure 161/74 H 149/68 H Blood Pressure Mean 103 95 Pulse Ox 95 97 Oxygen Delivery Method Bi-pap Room Air Oxygen Flow Rate (L/min) Fraction of Inspired Oxygen (FIO2) 05/17/21 15:20 05/17/21 15:30 05/17/21 15:31 Temperature 99.5 F H 99.5 F H Temperature Source Core Core Pulse Rate 89 92 85 Respiratory Rate 24 H 34 H 26 H Respiratory Effort Respiratory Depth Respiratory Pattern Blood Pressure 166/72 H 162/64 H Blood Pressure Mean 103 96 Pulse Ox 93 91 95 Oxygen Delivery Method Bi-pap Bi-pap Oxygen Flow Rate (L/min) Fraction of Inspired Oxygen (FIO2) 45 05/17/21 16:13 05/17/21 16:21 05/17/21 16:39 Temperature 100 F H 100.1 F H 100.2 F H Temperature Source Core Core Core Pulse Rate 88 88 88 Respiratory Rate 20 H 20 H 16 Respiratory Effort Respiratory Depth Respiratory Pattern Blood Pressure 175/92 H 177/89 H Blood Pressure Mean 119 118 Pulse Ox 95 97 96 Oxygen Delivery Method Bi-pap Bi-pap Bi-pap Oxygen Flow Rate (L/min) Fraction of Inspired Oxygen (FIO2) 05/17/21 17:00 05/17/21 18:08 Temperature 99 F Temperature Source Temporal Pulse Rate 84 88 Respiratory Rate 28 H 19 H Respiratory Effort Respiratory Depth Respiratory Pattern Blood Pressure 174/85 H Blood Pressure Mean 114 Pulse Ox 93 Oxygen Delivery Method Bi-pap Oxygen Flow Rate (L/min) Fraction of Inspired Oxygen (FIO2) 45 Weight Weight: 384 lb 7.779 oz Body Mass Index (BMI) 55.0 Physical Exam Const General Appearance: lethargic and on BiPAP HEENT normocephalic Mouth: dry mucous membranes Eyes PERRL and conjunctivae normal Neck supple and no JVD Resp Effort and Inspection: tachypneic Auscultation: rhonchi and diminished lung sounds; Negative for crackles, rales or wheezes Cardio regular rate, regular rhythm, S1 normal heart sound, S2 normal heart sound and no murmurs GI soft to palpation, non-tender and non-distended; Negative for hepatosplenomegaly Extremity General Extremity: edema; Negative for clubbing or cyanosis Skin no rashes or lesions noted Neuro no focal motor deficits and no sensory deficits noted Psych Mood & Affect: flat affect Results Lab / Micro Data Result Diagrams: 05/17/21 13:00 05/17/21 13:00 Labs: Laboratory Results - last 24 hr 05/17/21 13:00: WBC 10.9, RBC 3.27 L, Hgb 9.9 L, Hct 35.5 L, MCV 108.6 H, MCH 30.3, MCHC 27.9 L, RDW Std Deviation 59.4 H, RDW Coeff of Danielle 14.7 H, Plt Count 148 L, MPV 11.4, Immature Gran % (Auto) 0.800, Neut % (Auto) 82.2 H, Lymph % (Auto) 7.4 L, [place] % (Auto) 8.5, Eos % (Auto) 0.7, Baso % (Auto) 0.4, Absolute Neuts (auto) 8.9 H, Absolute Lymphs (auto) 0.81 L, Nucleated RBC % 0 05/17/21 13:00: Sodium 139, Potassium 4.8, Chloride 97 L, Carbon Dioxide 44.0 H, Anion Gap -2 L, BUN 18, Creatinine 0.69, Estim Creat Clear Calc 90.24, Est GFR (MDRD) Af Amer 111, Est GFR (MDRD) Non-Af 92, BUN/Creatinine Ratio 26.2 H, Glucose 183 H, Calcium 8.9, Troponin I High Sens 8 05/17/21 13:00: B-Natriuretic Peptide 84.1 05/17/21 13:00: Lactic Acid 1.1 05/17/21 14:15: Urine Color Yellow, Urine Clarity Clear, Urine pH 5.0, Ur Specific [place] 1.025, Urine Protein 30 H, Urine Glucose (UA) Normal, Urine Ketones Negative, Urine Occult Blood Negative, Urine Nitrite Negative, Urine Bilirubin Negative, Urine Urobilinogen Normal, Ur Leukocyte Esterase Negative, Urine RBC 0 SEEN, Urine WBC 0-5 SEEN, Ur Squamous Epith Cells 0 SEEN, Urine Bacteria 0 SEEN, Urine Mucus 0 SEEN Micro: Microbiology 05/17/21 13:05 Nasal Secretion SARS-CoV-2 & FLU Antigen (Rapid) - Final ABG Data ABG results: ABG 05/17/21 05/17/21 05/17/21 13:09 14:28 16:59 Specimen Type ART ART ART Sample Site L Radial L Radial L Radial pH 7.19 L* 7.21 L 7.25 L Bicarbonate Actual 45.8 H 45.0 H 46.4 H Total CO2 50 49 50 Base Excess 18 H 17 H 19 H O2 Saturation 95 88 L 85 L O2 % 50 45 ABG pCO2 119.6 H* 111.6 H* 106.6 H* ABG pO2 101 H 72 L 64 L Test Positive Positive Positive Respiration Rate 12 12 O2 Delivery Device NRB BiPAP BiPAP Liter Flow 15.0 Vent Mode avaps avaps Tidal Volume 450 500 POC PEEP 10 10 Crit Call To/Read Back Yes Yes Yes Blood Gas Notified Whom jones jones Rhythm Strip Rhythm Strip: Sinus Rhythm Rate: 91 Ectopy: None Radiology Impression Chest X-Ray 05/17/21 13:08 IMPRESSION: And CHF. Electronically Signed: Yusuf Saldivar MD at 13:50 EDT , ADDENDUM: 05/17/21 1503 Chest CTA 05/17/21 15:55 IMPRESSION: 1. No CT evidence of pulmonary embolism. 2. Bilateral pneumonia, pulmonary edema, or ARDS. 3. Moderate bilateral pleural effusions. Electronically Signed: Slade Romeo MD at 16:34 EDT , Assessment & Plan Assessment/Plan (1) Bilateral interstitial pneumonia: (2) Acute respiratory acidosis: (3) Respiratory failure: PLAN: 1. Acute hypoxic respiratory failure secondary to bilateral pneumonia/metabolic encephalopathy ?Given her body habitus she likely does have a component of obstructive sleep apnea, she is chronically on 4 L since January because of Covid ?CT of the chest shows bilateral pneumonia/possible pulmonary edema versus ARDS ?We will provide some slow hydration overnight and continue with Zosyn and vancomycin and reevaluate in the morning ?Continue with BiPAP ?She is slowly improving both her pH and her CO2 however she may need to be intubated depending on whether or not she tires out prior to recovery ?I did discuss with the family that we do not have handstitching machine armhole feller coverage over the weekend, they are aware and okay with keeping her here ?She would likely need a sleep study to evaluate for probable DONA ?Sputum and blood cultures are pending 2. HTN/history of heart failure unsure type ?Blood pressures currently are stable ?Continue with her metoprolol, Aldactone, will hold Lasix and give her some fluids overnight given her pneumonia and can reevaluate in the morning ?Previous admission she did not have an echo secondary to her respiratory distress being related to Covid. Once she is stable would benefit from an echo as well as a sleep study 3. DM2 with peripheral neuropathy ?We will continue with long-acting insulin, her A1c was 7.5 back in November ?Accu-Cheks AC at bedtime with sliding scale insulin ?Will hold her home Metformin and Trulicity 4. Hypothyroidism ?Stable ?Continue with Synthroid DVT: Lovenox Charges/Coding Visit Charges Inpatient E&M: 23325 Init Hosp L3
[2021-05-17] MEDS: 0.9% Normal Saline 1,000 ML 75 ML IV (18:49)
--- NOTE | 2021-05-17 18:52 | PCM.RX.CS ---
Consult Pharmacy has been consulted to manage selected antiobiotic: Vancomycin Type of Consult: New start Suspected Infection: Pneumonia Labs: Sodium 139 mmol/L (136-145) 05/17/21 13:00 Potassium 4.8 mmol/L (3.5-5.1) 05/17/21 13:00 Chloride 97 mmol/L (98-107) L 05/17/21 13:00 Carbon Dioxide 44.0 mmol/L (21.0-32.0) H 05/17/21 13:00 Anion Gap -2 (5-15) L 05/17/21 13:00 BUN 18 mg/dL (7-18) 05/17/21 13:00 Creatinine 0.69 mg/dL (0.55-1.02) 05/17/21 13:00 Est GFR (MDRD) Af Amer 111 mL/min (>60) 05/17/21 13:00 Est GFR (MDRD) Non-Af 92 mL/min (>60) 05/17/21 13:00 BUN/Creatinine Ratio 26.2 RATIO (10-20) H 05/17/21 13:00 Glucose 183 mg/dL (74-106) H 05/17/21 13:00 Microbiology: Microbiology 05/17/21 13:05 Nasal Secretion SARS-CoV-2 & FLU Antigen (Rapid) - Final Goal Trough: 15-20 mcg/mL Pharmacy Plan for Drug Dosing: NEW START IV VANCOMYCIN Consulting Physician: Dr. Beck Indication: Bilateral Pneumonia Goal Trough: 15-20 SrCr: 0.69 CrCl: 90 mL/min Comments: Initial dose in ED of 2g administered 05/17/21 @1520 Vancomcyin Dose: 1250mg IV Q8h to start 05/17/21 @2300 Pending Level: 05/18/21 @1430, prior to 4th total dose per protocol Pharmacy Service will continue to monitor and adjust dosing as required.
[2021-05-17] MEDS: Acetaminophen 325 MG Tablet 650 MG PO (20:58)
[2021-05-17] MEDS: MELATONIN 3 MG TABLET PO (21:00)
[2021-05-17] MEDS: Enoxaparin 30 MG/0.3 ML Syringe SC (21:01)
[2021-05-17] MEDS: Metoprolol Tartrate 25 MG Tablet PO (21:01)
[2021-05-17] MEDS: Gabapentin 600 MG Tablet 1200 MG PO (21:02)
[2021-05-17] MEDS: Insulin Glargine-YFGN 100 UNIT/ML Pen 10 UNIT SC (21:55)
[2021-05-17 22:11] LABS: Bedside Glucose 214 mg/dL (74-106)
[2021-05-18] VITALS (38 sets, daily range): BP systolic 112–155; BP diastolic 57–101; PULSE 71–148; RESP 12–29; TEMP 37.3–37.8; O2SAT 80–100
[2021-05-18 03:22] LABS: Absolute Lymphocyte Count 0.68 X10^3/uL (0.83-4.51); Absolute Neutrophil Count 8.9 X10^3/uL (2.0-7.7); Basophil# 0.03 X10^3/uL; Basophil% 0.3 % (0-1); Hematocrit 31.2 % (37-47); Lymphocyte # 0.68 X10^3/ul (0.83-4.51); Lymphocyte % 6.5 % (19-41); Mean Corp Hgb Conc 28.8 g/dL (32-36); Mean Corpuscular Hgb 30.5 pg (27.0-32.0); Mean Corpuscular Volume 105.8 fL (81-99); Mean Platelet Vol. 11.1 fl (6.2-12.0); Monocyte# 0.83 X10^3/uL; Monocyte% 7.9 % (0-10); NRBC Flagged by Analyzer 0 % (0-5); Neutrophil # 8.89 X10^3/uL (2.7-7.7); Neutrophil % 84.7 % (47-70); Platelet Count 146 K/mm3 (150-450); RBC Distribution Width CV 14.5 % (11.6-14.6); Red Blood Count 2.95 M/mm3 (4.2-5.4); White Blood Count 10.5 K/mm3 (4.4-11.0)
[2021-05-18 03:37] LABS: Anion Gap -2 (5-15); BUN 22 mg/dL (7-18); BUN/Creat Ratio 29.3 RATIO (10-20); Calcium,Total 8.5 mg/dL (8.5-10.1); Chloride 97 mmol/L (98-107); Creatinine, Serum 0.75 mg/dL (0.55-1.02); EST Glomerular Filtration Rate 83 mL/min (>60); Est Glom Filt Rate - Afr Amer 100 mL/min (>60); Estimated Creatinine Clearance 83.02 ml/min; Glucose 174 mg/dL (74-106); Potassium 4.7 mmol/L (3.5-5.1); Sodium Level 140 mmol/L (136-145)
[2021-05-18] MEDS: Levothyroxine 100 MCG Tablet 200 MCG PO (05:00)
[2021-05-18] MEDS: Acetaminophen 325 MG Tablet 650 MG PO ×2 (05:01→21:16)
[2021-05-18] MEDS: Nystatin Powder 15gm Bottle 1 APPLIC TOPICAL ×2 (06:30→23:12)
[2021-05-18 06:56] LABS: Bedside Glucose 120 mg/dL (74-106)
--- NOTE | 2021-05-18 07:14 | CON.PCM.CC_ITS ---
Assessment & Plan Assessment/Plan (1) Respiratory failure: (2) Bilateral interstitial pneumonia: PLAN: RECOMMENDATIONS: 1. Challenge with Lasix therapy 2. Obtain echocardiogram 3. Continue empiric antibiotics for now 4. BiPAP breaks as tolerated IMPRESSIONS: 1. Acute on chronic combined respiratory failure Unclear etiology. Clinical suspicion for multiple concomitant etiologies. Patient does have significant swelling of bilateral lower extremities with venous stasis. Congestive heart failure would be a concern. BNP was not significantly elevated. Patient does have bilateral groundglass opacities, but is not having any leukocytosis. Patient did have fever overnight. Agree with empiric antibiotics. Patient is a non-smoker and does not have a history of obstructive lung disease, so we will hold on steroids for now. BiPAP rescue appears to be clinically working. Will need to follow closely with ABGs as nece ssary for mental status. Cannot exclude the need for intubation. Patient may have an element of flash pulmonary edema given hypertensive status on presentation. Patient likely also has an element of obstructive sleep apnea, but will need a sleep study as an outpatient. Recommend using AVAPS in the interim. 2. Acute metabolic encephalopathy secondary to hypercarbia Patient with significant elevation of carbon dioxide. This is not new as patient's bicarbonate is significantly elevated. We will need to keep saturations between 88 and 92% to avoid continued worsening. Patient does appear to be improved following BiPAP therapy overnight. 3. Hypertension/probable CHF Patient with significant hypertension on presentation. Unclear if this is secondary to a stress response or persistent problem. Patient is currently on spironolactone, which would be suggestive of systolic CHF in the past, but no echocardiogram is available for review. Patient's body habitus would be suggestive of some diastolic dysfunction. Echocardiogram will be ordered. Patient will be challenged with Lasix this morning. 4. Diabetes mellitus type 2 with peripheral neuropathy/hypothyroidism/morbid obesity/poor historian/recent COVID-19 Complicates care, management, recovery and prognosis. May need to watch blood sugars closely if steroids are indicated. Okay to continue with baseline medications during BiPAP breaks from my perspective. TIME: 32 minutes critical care time spent addressing patient's acute combined respiratory failure, metabolic encephalopathy, probable CHF, diabetes mellitus, review of all data and collaboration with care team HPI Consult Data Date of Consult: 05/18/21 HPI Narrative HPI Narrative: YASMANI MCLAIN is a 61 F, with past medical history listed below, who presents to [facility] 05[facility]17[facility]21 secondary to progressive shortness of breath. Patient reportedly has had increased shortness of breath and lethargy over the last week. Patient reportedly wears between 2 and 4 L luis al cannula at baseline and was noted to be 83% on 4 L. Patient reportedly has been short of breath since having COVID 19 and has been unable to care for herself. Patient also has had a continuous cough since that time. Family reportedly has not noted any increased sputum or sick contacts. Patient reportedly has an appointment to see me in the office next month. In the ER, patient was afebrile, but hypertensive at 175/75, tachypneic at 24 breaths/min and requiring a nonrebreather to maintain saturations. Patient did end up having a temperature of 100.2 ?F by the end of her ER stay. Laboratory work-up showed a white blood cell count of 10.9, hemoglobin of 9.9 and platelets of 148. Chemistries were significant for a bicarbonate of 44, but normal renal function. BNP was only 84, but glucose was 183. Lactate was within normal limits and UA was unremarkable. Patient did have an arterial blood gas obtained showing a pH of 7.19 with a PCO2 of 119.6 and a PO2 of 101 on a nonrebreather. This did not significantly change after AVAPS therapy. Chest x-ray was more suggestive of congestive heart failure and a CTA of the chest showed bilateral pneumonia edema versus ARDS. Patient was noted to have some effusions. Patient was given aerosols, Solu-Medrol and BiPAP therapy. Patient was transferred to the intensive care unit secondary to concerns about need for intubation. Patient is not able to provide much additional information at this time. Patient is more interactive per nursing. Patient reports her lower extremities are sore, but have been red for a while. Patient reportedly has never been a smoker and denies any respiratory complaints prior to COVID-19. Patient does state that she did not require oxygen prior to her COVID-19. Patient does not check her weight on daily basis. Patient reports that she has been compliant with her medications, but is unable to name her medications. Unable to obtain a reliable review of systems at this time. [facility] Medical History Acute hypoxemic respiratory failure Anemia Anxiety Cancer Congestive heart failure (CHF) COVID-19 Diabetes DVT (deep venous thrombosis) GERD (gastroesophageal reflux disease) History of diabetes mellitus History of morbid obesity Hypertension Hypothyroidism Hypoxia Non-smoker On home oxygen therapy Pneumonia due to COVID-19 virus Pneumonitis Home Medications furosemide 40 mg PO BIDLX 07/15/13 [History Last Taken 05/17/21] ibuprofen 600 mg PO Q6H PRN PRN #30 tablet 07/15/13 [Rx Last Taken Unknown] metoprolol tartrate 25 mg PO BID 07/15/13 [History Last Taken 05/17/21] multivitamin with folic acid [Thera] 1 tab PO DAILY 07/15/13 [History Last Taken 05/16/21] potassium chloride [Klor-Con M20] 20 meq PO DAILY 07/15/13 [History Last Taken 05/16/21] spironolactone 25 mg PO DAILY 07/15/13 [History Last Taken 05/17/21] albuterol sulfate 2.5 mg INHALATION Q4H PRN 05/17/21 [History Last Taken 05/16/21] ammonium lactate 1 ea TOPICAL DAILY 05/17/21 [History Last Taken 05/15/21] benzonatate 100 mg PO TID PRN 05/17/21 [History Last Taken 05/15/21] dulaglutide [Trulicity] 0.75 mg SUBCUT DAWN 05/17/21 [History Last Taken 05/13/21] exemestane 25 mg PO DAILY 05/17/21 [History Last Taken 05/17/21] fluticasone propionate 2 spray INTRANASAL DAILY 05/17/21 [History Last Taken 05/17/21] gabapentin 1,200 mg PO BID 05/17/21 [History Last Taken 05/17/21] hydroxyzine HCl 25 mg PO DAILY PRN 05/17/21 [History Last Taken Unknown] levothyroxine [Euthyrox] 200 mcg PO DAILY 05/17/21 [History Last Taken 05/16/21] metformin 1,000 mg PO BID 05/17/21 [History Last Taken 05/17/21] metoclopramide HCl 10 mg PO Q6H PRN 05/17/21 [History Last Taken 05/17/21] Allergy/AdvReac Type Severity Reaction Status Date / Time diphenhydramine HCl Allergy HEART Verified 02/02/21 10:37 [From Benadryl] RACES levofloxacin [From Levaquin] Allergy HEART Verified 02/02/21 10:37 RACE AND FEELS SOB oxytocin [From Pitocin] AdvReac FLOATING Verified 02/02/21 10:37 FEELING ENVIROMENTAL AdvReac Other Uncoded 02/02/21 10:37 Family History Other Diabetes Surgical History History of reduction surgery of left breast Social History Smoking Status: Never smoker ROS Review of Systems ROS Unobtainable: due to mental condition Physical Exam Const Constitutional Narrative: RASS -1. Falls asleep quickly with lack of stimulation General Appearance: lethargic and on BiPAP Nutritional Appearance: morbidly obese HEENT normocephalic Mouth: dry mucous membranes Eyes PERRL and conjunctivae normal Neck supple and no JVD Resp Effort and Inspection: tachypneic Auscultation: rhonchi and diminished lung sounds; Negative for crackles, rales or wheezes Cardio regular rate, regular rhythm, S1 normal heart sound, S2 normal heart sound and no murmurs GI soft to palpation, non-tender and non-distended; Negative for hepatosplenomegaly Extremity Extremity Narrative: Hyperemia of bilateral lower extremities General Extremity: edema; Negative for clubbing or cyanosis Skin no rashes or lesions noted Neuro no focal motor deficits and no sensory deficits noted Psych Mood & Affect: flat affect Lab / Micro Data Result Diagrams: 05/18/21 03:15 05/18/21 03:15 Labs: Laboratory Results - last 24 hr 05/17/21 13:00: WBC 10.9, RBC 3.27 L, Hgb 9.9 L, Hct 35.5 L, MCV 108.6 H, MCH 30.3, MCHC 27.9 L, RDW Std Deviation 59.4 H, RDW Coeff of Danielle 14.7 H, Plt Count 148 L, MPV 11.4, Immature Gran % (Auto) 0.800, Neut % (Auto) 82.2 H, Lymph % (Auto) 7.4 L, [place] % (Auto) 8.5, Eos % (Auto) 0.7, Baso % (Auto) 0.4, Absolute Neuts (auto) 8.9 H, Absolute Lymphs (auto) 0.81 L, Nucleated RBC % 0 05/17/21 13:00: Sodium 139, Potassium 4.8, Chloride 97 L, Carbon Dioxide 44.0 H, Anion Gap -2 L, BUN 18, Creatinine 0.69, Estim Creat Clear Calc 90.24, Est GFR (MDRD) Af Amer 111, Est GFR (MDRD) Non-Af 92, BUN/Creatinine Ratio 26.2 H, Glucose 183 H, Calcium 8.9, Troponin I High Sens 8 05/17/21 13:00: B-Natriuretic Peptide 84.1 05/17/21 13:00: Lactic Acid 1.1 05/17/21 14:15: Urine Color Yellow, Urine Clarity Clear, Urine pH 5.0, Ur Speci fic [place] 1.025, Urine Protein 30 H, Urine Glucose (UA) Normal, Urine Ketones Negative, Urine Occult Blood Negative, Urine Nitrite Negative, Urine Bilirubin Negative, Urine Urobilinogen Normal, Ur Leukocyte Esterase Negative, Urine RBC 0 SEEN, Urine WBC 0-5 SEEN, Ur Squamous Epith Cells 0 SEEN, Urine Bacteria 0 SEEN, Urine Mucus 0 SEEN 05/17/21 21:54: POC Glucose 214 H 05/18/21 03:15: WBC 10.5, RBC 2.95 L, Hgb 9.0 L, Hct 31.2 L, MCV 105.8 H, MCH 30.5, MCHC 28.8 L, RDW Std Deviation 56.0 H, RDW Coeff of Danielle 14.5, Plt Count 146 L, MPV 11.1, Immature Gran % (Auto) 0.600, Neut % (Auto) 84.7 H, Lymph % (Auto) 6.5 L, [place] % (Auto) 7.9, Eos % (Auto) 0.0, Baso % (Auto) 0.3, Absolute Neuts (auto) 8.9 H, Absolute Lymphs (auto) 0.68 L, Nucleated RBC % 0 05/18/21 03:15: Sodium 140, Potassium 4.7, Chloride 97 L, Carbon Dioxide 45.0 H, Anion Gap -2 L, BUN 22 H, Creatinine 0.75, Estim Creat Clear Calc 83.02, Est GFR (MDRD) Af Amer 100, Est GFR (MDRD) Non-Af 83, BUN/Creatinine Ratio 29.3 H, Glucose 174 H, Calcium 8.5 05/18/21 06:53: POC Glucose 120 H Micro: Microbiology 05/17/21 13:05 Nasal Secretion SARS-CoV-2 & FLU Antigen (Rapid) - Final ABG Data ABG results: ABG 05/17/21 05/17/21 05/17/21 13:09 14:28 16:59 Specimen Type ART ART ART Sample Site L Radial L Radial L Radial pH 7.19 L* 7.21 L 7.25 L Bicarbonate Actual 45.8 H 45.0 H 46.4 H Total CO2 50 49 50 Base Excess 18 H 17 H 19 H O2 Saturation 95 88 L 85 L O2 % 50 45 ABG pCO2 119.6 H* 111.6 H* 106.6 H* ABG pO2 101 H 72 L 64 L Test Positive Positive Positive Respiration Rate 12 12 O2 Delivery Device NRB BiPAP BiPAP Liter Flow 15.0 Vent Mode avaps avaps Tidal Volume 450 500 POC PEEP 10 10 Crit Call To/Read Back Yes Yes Yes Blood Gas Notified Whom jones jones Rhythm Strip Rhythm Strip: Sinus Rhythm Rate: 91 Ectopy: None Radiology Impression Chest X-Ray 05/17/21 13:08 IMPRESSION: And CHF. Electronically Signed: Yusuf Saldivar MD at 13:50 EDT , ADDENDUM: 05/17/21 1503 Chest CTA 05/17/21 15:55 IMPRESSION: 1. No CT evidence of pulmonary embolism. 2. Bilateral pneumonia, pulmonary edema, or ARDS. 3. Moderate bilateral pleural effusions. Electronically Signed: Slade Romeo MD at 16:34 EDT , Charges/Coding Procedures Hospitalists Procedures: 48044 Critial Care 1st Hr
--- NOTE | 2021-05-18 07:31 | ECHOCS_ITS ---
Reason For Study: DYSPNEA Procedure This was a 2D Doppler, Color Flow transthoracic echocardiogram. The exam was of poor technical quality due to body habitus. The study was technically difficult. Contrast injection was performed. Exam performed portable in ICU/CCU. Left Ventricle Based upon the 2D echocardiographic images obtained there appears to be grossly normal left ventricular size, wall motion, and systolic function. The estimated ejection fraction is 65 %. There is evidence of diastolic dysfunction. Right Ventricle Normal RV size. Normal systolic function. Atria Normal left atrium. Normal right atrium. No doppler evidence for ASD. Mitral Valve There is moderate to severe mitral annular calcification. Extension of the mitral annular calcification onto the mitral valve leaflets. Trivial mitral valve insufficiency. Tricuspid Valve Normal tricuspid valve. Trivial tricuspid valve insufficiency. Right ventricular systolic pressure estimated to be 60 mmHg. Aortic Valve The aortic valve is not well visualized. Pulmonic Valve The pulmonic valve is not well visualized. Great Vessels Normal sized aortic root. Pericardium/Pleural No pericardial effusion. Medication Diluted definity 3.0ml given slow IV push to enhance endocardial definition. MMode/2D Measurements & Calculations RVDd: 4.2 cm Ao root diam: 3.8 cm Doppler Measurements & Calculations MV E max dejan: 162.8 cm/sec Lat Peak E' Dejan: 8.3 cm/sec Med Peak E' Dejan: 6.7 cm/sec MV A max dejan: 85.2 cm/sec E/E' lat: 19.7 E/E' med: 24.4 MV E/A: 1.9 MV V2 max: 165.1 cm/sec Ao V2 max: 218.1 cm/sec LV V1 max: 119.8 cm/sec MV max P.9 mmHg Ao max P.0 mmHg LV V1 max P.7 mmHg MV V2 mean: 99.8 cm/sec Ao V2 mean: 158.7 cm/sec LV V1 mean P.6 mmHg MV mean P.6 mmHg Ao mean P.0 mmHg LV V1 mean: 91.1 cm/sec MV V2 VTI: 43.4 cm Ao V2 VTI: 41.3 cm LV V1 VTI: 25.1 cm TR max dejan: 375.7 cm/sec MV P1/2t-pr_phl: 57.3 msec TR max P.5 mmHg ECHO/Echo Complete W/ Contrast Interpretation Summary The study was technically difficult. Contrast injection was performed. Based upon the 2D echocardiographic images obtained there appears to be grossly normal left ventricular size, wall motion, and systolic function. The estimated ejection fraction is 65 %. There is moderate to severe mitral annular calcification. Extension of the mitral annular calcification onto the mitral valve leaflets. Trivial mitral valve insufficiency. Trivial tricuspid valve insufficiency. Right ventricular systolic pressure estimated to be 60 mmHg. There is evidence of diastolic dysfunction. Ordering Physician: Fredo Huitron Referring Physician: YUMIKO ENCISO Performed By: Danielle Eng, RDCS, RVT
[2021-05-18] MEDS: Furosemide 40 MG/4 ML Vial IV ×3 (08:12→21:18)
--- NOTE | 2021-05-18 08:58 | PCM.PN.HOSP ---
Subjective Subjective Mental status remains unchanged, no issues overnight. Continuing on the BiPAP Objective Data Objective Data Vital Signs: Vital Signs Temp Pulse Resp BP Pulse Ox 99.1 F 86 22 H 145/84 H 95 05/18/21 08:00 05/18/21 08:00 05/18/21 08:00 05/18/21 08:00 05/18/21 08:00 Oxygen Flow Rate (L/min) 5 Oxygen Delivery Method Nasal Cannula Weight: 387 lb 5.635 oz Body Mass Index (BMI) 55.0 Intake & Output: Intake and Output for Last 24 Hours 05/17/21 05/18/21 05/19/21 03:59 03:59 03:59 Intake Total 915 / 915 1275 / 1275 Output Total 1200 / 1200 200 / 200 Balance -285 / -285 1075 / 1075 Lab / Micro Data Result Diagrams: 05/18/21 03:15 05/18/21 03:15 Labs: Laboratory Results - last 24 hr 05/17/21 13:00: WBC 10.9, RBC 3.27 L, Hgb 9.9 L, Hct 35.5 L, MCV 108.6 H, MCH 30.3, MCHC 27.9 L, RDW Std Deviation 59.4 H, RDW Coeff of Danielle 14.7 H, Plt Count 148 L, MPV 11.4, Immature Gran % (Auto) 0.800, Neut % (Auto) 82.2 H, Lymph % (Auto) 7.4 L, [place] % (Auto) 8.5, Eos % (Auto) 0.7, Baso % (Auto) 0.4, Absolute Neuts (auto) 8.9 H, Absolute Lymphs (auto) 0.81 L, Nucleated RBC % 0 05/17/21 13:00: Sodium 139, Potassium 4.8, Chloride 97 L, Carbon Dioxide 44.0 H, Anion Gap -2 L, BUN 18, Creatinine 0.69, Estim Creat Clear Calc 90.24, Est GFR (MDRD) Af Amer 111, Est GFR (MDRD) Non-Af 92, BUN/Creatinine Ratio 26.2 H, Glucose 183 H, Calcium 8.9, Troponin I High Sens 8 05/17/21 13:00: B-Natriuretic Peptide 84.1 05/17/21 13:00: Lactic Acid 1.1 05/17/21 14:15: Urine Color Yellow, Urine Clarity Clear, Urine pH 5.0, Ur Specific Rush 1.025, Urine Protein 30 H, Urine Glucose (UA) Normal, Urine Ketones Negative, Urine Occult Blood Negative, Urine Nitrite Negative, Urine Bilirubin Negative, Urine Urobilinogen Normal, Ur Leukocyte Esterase Negative, Urine RBC 0 SEEN, Urine WBC 0-5 SEEN, Ur Squamous Epith Cells 0 SEEN, Urine Bacteria 0 SEEN, Urine Mucus 0 SEEN 05/17/21 21:54: POC Glucose 214 H 05/18/21 03:15: WBC 10.5, RBC 2.95 L, Hgb 9.0 L, Hct 31.2 L, MCV 105.8 H, MCH 30.5, MCHC 28.8 L, RDW Std Deviation 56.0 H, RDW Coeff of Danielle 14.5, Plt Count 146 L, MPV 11.1, Immature Gran % (Auto) 0.600, Neut % (Auto) 84.7 H, Lymph % (Auto) 6.5 L, [place] % (Auto) 7.9, Eos % (Auto) 0.0, Baso % (Auto) 0.3, Absolute Neuts (auto) 8.9 H, Absolute Lymphs (auto) 0.68 L, Nucleated RBC % 0 05/18/21 03:15: Sodium 140, Potassium 4.7, Chloride 97 L, Carbon Dioxide 45.0 H, Anion Gap -2 L, BUN 22 H, Creatinine 0.75, Estim Creat Clear Calc 83.02, Est GFR (MDRD) Af Amer 100, Est GFR (MDRD) Non-Af 83, BUN/Creatinine Ratio 29.3 H, Glucose 174 H, Calcium 8.5 05/18/21 06:53: POC Glucose 120 H Micro: Microbiology 05/17/21 13:05 Nasal Secretion SARS-CoV-2 & FLU Antigen (Rapid) - Final ABG Data ABG results: ABG 05/17/21 05/17/21 05/17/21 13:09 14:28 16:59 Specimen Type ART ART ART Sample Site L Radial L Radial L Radial pH 7.19 L* 7.21 L 7.25 L Bicarbonate Actual 45.8 H 45.0 H 46.4 H Total CO2 50 49 50 Base Excess 18 H 17 H 19 H O2 Saturation 95 88 L 85 L O2 % 50 45 ABG pCO2 119.6 H* 111.6 H* 106.6 H* ABG pO2 101 H 72 L 64 L Test Positive Positive Positive Respiration Rate 12 12 O2 Delivery Device NRB BiPAP BiPAP Liter Flow 15.0 Vent Mode avaps avaps Tidal Volume 450 500 POC PEEP 10 10 Crit Call To/Read Back Yes Yes Yes Blood Gas Notified Whom jones jones Radiography Diagnostic Testing: Radiology Impression Chest X-Ray 05/17/21 13:08 IMPRESSION: And CHF. Electronically Signed: Yusuf Saldivar MD at 13:50 EDT , ADDENDUM: 05/17/21 1503 Chest CTA 05/17/21 15:55 IMPRESSION: 1. No CT evidence of pulmonary embolism. 2. Bilateral pneumonia, pulmonary edema, or ARDS. 3. Moderate bilateral pleural effusions. Electronically Signed: Slade Romeo MD at 16:34 EDT , Rhythm Strip Rhythm Strip: Sinus Rhythm Rate: 91 Ectopy: None Physical Exam Const General Appearance: lethargic and on BiPAP HEENT normocephalic Eyes PERRL and conjunctivae normal Neck supple and no JVD Resp Effort and Inspection: tachypneic Auscultation: rhonchi and diminished lung sounds; Negative for crackles, rales or wheezes Cardio regular rate, regular rhythm, S1 normal heart sound, S2 normal heart sound and no murmurs GI soft to palpation, non-tender and non-distended; Negative for hepatosplenomegaly Extremity General Extremity: edema; Negative for clubbing or cyanosis Skin no rashes or lesions noted Neuro no focal motor deficits and no sensory deficits noted Psych affect normal Appearance: appropriate Mood & Affect: flat affect Assessment & Plan Assessment/Plan (1) Bilateral interstitial pneumonia: (2) Acute respiratory acidosis: (3) Respiratory failure: PLAN: 1. Acute hypoxic respiratory failure secondary to bilateral pneumonia/metabolic encephalopathy ?Given her body habitus she likely does have a component of obstructive sleep apnea, she is chronically on 4 L since January because of Covid ?CT of the chest shows bilateral pneumonia/possible pulmonary edema versus ARDS ?Given her lack of improvement, will discontinue her IV fluids and trial her on a dose of Lasix ?Continue with BiPAP ?She is slowly improving both her pH and her CO2 however she may need to be intubated depending on whether or not she tires out prior to recovery ?I did discuss with the family that we do not have piling cutter coverage over the weekend, they are aware and okay with keeping her here ?She would likely need a sleep study to evaluate for probable DONA ?Sputum and blood cultures are pending 2. HTN/history of heart failure unsure type ?Blood pressures currently are stable ?Continue with her metoprolol, Aldactone, will trial an IV Lasix as she has not had any significant improvement in respiratory status overnight ?Previous admission she did not have an echo secondary to her respiratory distress being related to Covid. Obtain echo today 3. DM2 with peripheral neuropathy ?We will continue with long-acting insulin, her A1c was 7.5 back in November ?Accu-Cheks AC at bedtime with sliding scale insulin ?Will hold her home Metformin and Trulicity 4. Hypothyroidism ?Stable ?Continue with Synthroid DVT: Lovenox Charges/Coding Visit Charges Inpatient E&M: 97234 Subs Hosp L2
--- NOTE | 2021-05-18 09:45 | CASEMGMT ---
Tertiary facility in-network with patient's MMO insurance: [facility], [facility], [facility], [facility], .
[2021-05-18] MEDS: Metoprolol Tartrate 25 MG Tablet PO ×2 (10:07→21:17)
[2021-05-18] MEDS: Enoxaparin 30 MG/0.3 ML Syringe SC ×2 (10:07→21:18)
[2021-05-18] MEDS: Gabapentin 600 MG Tablet 1200 MG PO ×2 (10:08→21:17)
[2021-05-18 10:11] LABS: Bedside Glucose 138 mg/dL (74-106)
[2021-05-18] MEDS: Spironolactone 25 MG Tablet PO (10:13)
--- NOTE | 2021-05-18 10:15 | CASEMGMT ---
CRISTINA ZIMMER Face to Face with patient for initial transition planning/care coordination assessment. CRISTINA CM introduced self and role at [facility]. Patient lying in bed, alert and oriented, family at bedside. Patient willing to participate in assessment and is able to answer all questions appropriately. Care providers, pharmacy, and demographics verified. Patient wishes to discharge home with resumption of HHC with [facility]. Patient states she has no further needs or concerns at this time. CM to follow for discharge planning needs that may arise. PCP: [facility] Specialists: Sarbjit, ENT; Tomy, self pay specialist; Asim, SPECK DYER Preferred Pharmacy: [facility] Insurance: MMO Prescription Benefit: yes Living Will/HPOA: none, patient interested in completing, SW updated LNOK: 3 children-1 son, 2 daughters Living Arrangements: Zita lives with her 3 adult children in a single story home with 2 steps and grab bar to enter. Patient states she is independent for self care, family assists with insurance follow up rep Transportation: children, sister DME/HHC: patient states she has shower chair, BSC, raised toilet, lift chair, grab bars, walker rollator, wheelchair, hospital bed, scooter, nebulizer, pulse ox, home oxygen through [facility] with portability. RN GORAN called [facility] to verify order for home oxygen, current order is 4lpm continuously. Patient is active with [facility]. RN CM called and updated regarding hospitalization. HHC is for alf, added PT/OT to eval and treat. Disposition Plan: Patient to discharge home with resumption of HHC, family support, and follow-up plans in place. Mindi COREY, RN, CM
--- NOTE | 2021-05-18 11:47 | CASEMGMT ---
Social Work Participating in ICU rounds. Patient and patient family present. Patient with multiple testing to be completed. Discharge disposition undetermined. Social Work to continue to follow as needed. Nallely AYON, VALENCIA-S
[2021-05-18 12:11] LABS: Bedside Glucose 219 mg/dL (74-106)
[2021-05-18] MEDS: Insulin Lispro 100 UNIT/ML INSULN.PEN SC ×3 (12:18→21:14)
--- NOTE | 2021-05-18 12:22 | CASEMGMT ---
Social Work Per RN CM, family and patient requesting information on advanced directives but not wanting to complete papers yet. This child protective services social worker met with patient and patient family in room. This child protective services social worker provided patient/patient family with information on advanced care planning. Patient confirms to not want to complete advanced care planning paperwork right now but after we talk. This child protective services social worker encouraged patient and patient family to have further discussion about advanced care planning and request for social work if patient is wanting to complete paperwork. This child protective services social worker counseled family and patient on advanced care planning process and importance. Nallely Nolasco MSW, PARKER
--- NOTE | 2021-05-18 12:32 | CASEMGMT ---
CRISTINA ZIMMER updated by cooker tender that patient would like dietary home visit as outpatient. CRISTINA ZIMMER called Dr. Mathias' office and spoke to nursing regarding request. CRISTINA ZIMMER faxed referral form to Dr. Wang' office. CM will continue to follow this patient and plan for a safe discharge.
--- NOTE | 2021-05-18 13:14 | NURSING ---
Patient oxygen saturations began to drop mid 80s% and appeared more SOB. This RN explained to the patient she needs to wear her bipap to help. Patient agreed Daughter at bedside.
--- NOTE | 2021-05-18 14:12 | CHAPLAIN ---
Type of Pastoral Visit __x_ Initial Visit ___ Follow-up Visit ___ On-call Visit ___ General Patient Visit ___ Spiritual Assessment ___ Family Conference ___ Bereavement ___ Rapid Response ___ Code Blue ___ Other (describe below) Pastoral Care Referral From _x__ Patient ___ Family ___ Nurse ___ Physician ___ Capacity Planning Manager ___ Mover Helper ___ Other (describe below) Sacrament/Intervention _x__ Active listening ___ Anointing ___ Gnosticist ___ Bereavement ___ Communion ___ Promise exploration ___ ___ Life review _x__ Prayer ___ Reconciliation ___ Sacrament of Sick _x__ Supportive presence ___ Wedding ___ Other (describe below) Pastoral Comments patient sitting in chair on bi-pap and daughter is sitting beside holding her hand; daughter reminds this medical certification specialist that the patient's spouse in the ICU in January; offer of grief support and personal support given; pt asks for prayer; pt also states her concern for her children at this time; brief conversation, prayer, and then left the room with offer of ongoing support as desired
[2021-05-18 16:03] LABS: Vancomycin, Trough Level 14.4 ug/mL (5.0-15.0)
--- NOTE | 2021-05-18 16:48 | PCM.RX.CS ---
Consult Pharmacy has been consulted to manage selected antiobiotic: Vancomycin Type of Consult: Follow-up Suspected Infection: Pneumonia Prior Doses of Antibiotics Received/Current Regimen: VANCOMYCIN 2000 MG IV X 1 DOSE THEN 1250 MG IV Q 8 HOURS. 3 TOTAL DOSES RECEIVED. Labs: Sodium 140 mmol/L (136-145) 05/18/21 03:15 Potassium 4.7 mmol/L (3.5-5.1) 05/18/21 03:15 Chloride 97 mmol/L (98-107) L 05/18/21 03:15 Carbon Dioxide 45.0 mmol/L (21.0-32.0) H 05/18/21 03:15 Anion Gap -2 (5-15) L 05/18/21 03:15 BUN 22 mg/dL (7-18) H 05/18/21 03:15 Creatinine 0.75 mg/dL (0.55-1.02) 05/18/21 03:15 Est GFR (MDRD) Af Amer 100 mL/min (>60) 05/18/21 03:15 Est GFR (MDRD) Non-Af 83 mL/min (>60) 05/18/21 03:15 BUN/Creatinine Ratio 29.3 RATIO (10-20) H 05/18/21 03:15 Glucose 174 mg/dL (74-106) H 05/18/21 03:15 Vancomycin Trough 14.4 ug/mL (5.0-15.0) 05/18/21 15:30 Microbiology: Microbiology 05/17/21 13:05 Nasal Secretion SARS-CoV-2 & FLU Antigen (Rapid) - Final Weight used for dosin kg Estimated Creatinine Clearance: 100 ML/MIN Goal Trough: 15-20 mcg/mL Pharmacy Plan for Drug Dosing: Continue current dose and schedule of Vancomycin 1250 mg IV q8H. Obtain Vancomycin Trough on 05/19/21 at 1430. Pharmacy Service will continue to monitor and adjust dosing as required. Follow-Up Labs: Trough Vancomycin Labs to be done on [date and time ordered]: 05/19/21 at 1430
[2021-05-18 17:11] LABS: Bedside Glucose 185 mg/dL (74-106)
[2021-05-18] MEDS: Insulin Glargine-YFGN 100 UNIT/ML Pen 10 UNIT SC (21:15)
[2021-05-18] MEDS: MELATONIN 3 MG TABLET PO (21:17)
[2021-05-18 23:05] LABS: Bedside Glucose 217 mg/dL (74-106)
[2021-05-19] VITALS (20 sets, daily range): BP systolic 122–158; BP diastolic 68–83; PULSE 64–86; RESP 12–28; TEMP 36.4–37.4; O2SAT 96–98
[2021-05-19 03:36] LABS: Absolute Lymphocyte Count 1.23 X10^3/uL (0.83-4.51); Absolute Neutrophil Count 6.1 X10^3/uL (2.0-7.7); Basophil# 0.03 X10^3/uL; Basophil% 0.4 % (0-1); Eosinophil# 0.18 X10^3/uL; Eosinophils% 2.1 % (0-5); Hematocrit 29.6 % (37-47); Hemoglobin 8.7 g/dL (12.0-15.0); Lymphocyte # 1.23 X10^3/ul (0.83-4.51); Lymphocyte % 14.7 % (19-41); Mean Corp Hgb Conc 29.4 g/dL (32-36); Mean Corpuscular Hgb 30.1 pg (27.0-32.0); Mean Corpuscular Volume 102.4 fL (81-99); Mean Platelet Vol. 10.7 fl (6.2-12.0); Monocyte# 0.83 X10^3/uL; Monocyte% 9.9 % (0-10); NRBC Flagged by Analyzer 0 % (0-5); Neutrophil # 6.07 X10^3/uL (2.7-7.7); Neutrophil % 72.4 % (47-70); Platelet Count 119 K/mm3 (150-450); RBC Distribution Width CV 14.8 % (11.6-14.6); RBC Distribution Width SD 55.4 fl (35.1-43.9); Red Blood Count 2.89 M/mm3 (4.2-5.4); White Blood Count 8.4 K/mm3 (4.4-11.0)
[2021-05-19 04:00] LABS: BUN 26 mg/dL (7-18); BUN/Creat Ratio 33.6 RATIO (10-20); Calcium,Total 8.2 mg/dL (8.5-10.1); Carbon Dioxide > 45.0 mmol/L (21.0-32.0); Chloride 93 mmol/L (98-107); Creatinine, Serum 0.77 mg/dL (0.55-1.02); EST Glomerular Filtration Rate 80 mL/min (>60); Est Glom Filt Rate - Afr Amer 97 mL/min (>60); Estimated Creatinine Clearance 80.87 ml/min; Glucose 140 mg/dL (74-106); Potassium 3.8 mmol/L (3.5-5.1); Sodium Level 138 mmol/L (136-145)
[2021-05-19] MEDS: Levothyroxine 100 MCG Tablet 200 MCG PO (05:31)
[2021-05-19] MEDS: Furosemide 40 MG/4 ML Vial IV ×3 (05:41→20:46)
[2021-05-19 06:40] LABS: Bedside Glucose 132 mg/dL (74-106)
--- NOTE | 2021-05-19 08:37 | PN.HOSP_ITS ---
Subjective Subjective Back to her baseline mental status. No issues overnight. She tolerated BiPAP okay and she is maintaining her oxygen saturations on 3 L currently. Objective Data Objective Data Vital Signs: Vital Signs Temp Pulse Resp BP Pulse Ox 98.4 F 75 25 H 147/74 H 96 05/19/21 03:00 05/19/21 07:00 05/19/21 07:00 05/19/21 07:00 05/19/21 07:33 Oxygen Flow Rate (L/min) 3 Oxygen Delivery Method Nasal Cannula Weight: 387 lb 5.635 oz Body Mass Index (BMI) 55.0 Intake & Output: Intake and Output for Last 24 Hours 05/18/21 05/19/21 05/20/21 03:59 03:59 03:59 Intake Total 915 / 915 2215 / 2215 100 / 100 Output Total 1200 / 1200 4250 / 4250 1974 Balance -285 / -285 -2035 / -2035 -1875 / -1875 Lab / Micro Data Result Diagrams: 05/19/21 03:30 05/19/21 03:30 Labs: Laboratory Results - last 24 hr 05/18/21 10:05: POC Glucose 138 H 05/18/21 12:06: POC Glucose 219 H 05/18/21 15:30: Vancomycin Trough 14.4 05/18/21 17:02: POC Glucose 185 H 05/18/21 21:11: POC Glucose 217 H 05/19/21 03:30: WBC 8.4, RBC 2.89 L, Hgb 8.7 L, Hct 29.6 L, MCV 102.4 H, MCH 30.1, MCHC 29.4 L, RDW Std Deviation 55.4 H, RDW Coeff of Danielle 14.8 H, Plt Count 119 L, MPV 10.7, Immature Gran % (Auto) 0.500, Neut % (Auto) 72.4 H, Lymph % (Auto) 14.7 L, [place] % (Auto) 9.9, Eos % (Auto) 2.1, Baso % (Auto) 0.4, Absolute Neuts (auto) 6.1, Absolute Lymphs (auto) 1.23, Nucleated RBC % 0 05/19/21 03:30: Sodium 138, Potassium 3.8, Chloride 93 L, Carbon Dioxide > 45.0 H*, Anion Gap TNP, BUN 26 H, Creatinine 0.77, Estim Creat Clear Calc 80.87, Est GFR (MDRD) Af Amer 97, Est GFR (MDRD) Non-Af 80, BUN/Creatinine Ratio 33.6 H, Glucose 140 H, Calcium 8.2 L 05/19/21 06:38: POC Glucose 132 H Micro: Microbiology 05/17/21 13:05 Nasal Secretion SARS-CoV-2 & FLU Antigen (Rapid) - Final Radiography Diagnostic Testing: Radiology Impression Echocardiogram 05/18/21 07:31 Interpretation Summary The study was technically difficult. Contrast injection was performed. Based upon the 2D echocardiographic images obtained there appears to be grossly normal left ventricular size, wall motion, and systolic function. The estimated ejection fraction is 65 %. There is moderate to severe mitral annular calcification. Extension of the mitral annular calcification onto the mitral valve leaflets. Trivial mitral valve insufficiency. Trivial tricuspid valve insufficiency. Right ventricular systolic pressure estimated to be 60 mmHg. There is evidence of diastolic dysfunction. Ordering Physician: Fredo Huitron Referring Physician: YUMIKO ENCISO Performed By: Danielle Eng, RDCS, RVT Rhythm Strip Rhythm Strip: Sinus Rhythm Rate: 91 Ectopy: None Physical Exam Const alert, oriented x3 and no apparent distress HEENT normocephalic and moist oral mucous membranes Eyes PERRL, EOMs intact bilaterally and conjunctivae normal Neck supple and no JVD Resp normal respiratory effort, normal air movement, no retractions and no use of accessory muscles Auscultation: diminished lung sounds; Negative for crackles, rales, rhonchi or wheezes Cardio regular rate, regular rhythm, S1 normal heart sound, S2 normal heart sound and no murmurs GI soft to palpation, non-tender and non-distended; Negative for hepatosplenomegaly Extremity General Extremity: edema; Negative for clubbing or cyanosis Skin no rashes or lesions noted Neuro no focal motor deficits and no sensory deficits noted Psych affect normal Appearance: appropriate Assessment & Plan Assessment/Plan (1) Bilateral interstitial pneumonia: (2) Acute respiratory acidosis: (3) Respiratory failure: PLAN: 1. Acute hypoxic respiratory failure secondary to bilateral pneumonia/metabolic encephalopathy ?Given her body habitus she likely does have a component of obstructive sleep apnea, she is chronically on 4 L since January because of Covid ?CT of the chest shows bilateral pneumonia/possible pulmonary edema versus ARDS ?Continue with aggressive diuresis, echo with an RVSP of 60 mmHg. ?Continue with BiPAP as needed, will trial her off of BiPAP at night if if she is able to maintain her oxygen sats on nasal cannula ?She would likely need a sleep study to evaluate for probable DONA ?Sputum and blood cultures are pending 2. HTN/history of heart failure unsure type ?Blood pressures currently are stable ?Continue with her metoprolol, Aldactone ?Continue with aggressive diuresis ?Previous admission she did not have an echo secondary to her respiratory distress being related to Covid. Obtain echo today 3. DM2 with peripheral neuropathy ?We will continue with long-acting insulin, her A1c was 7.5 back in November ?Accu-Cheks AC at bedtime with sliding scale insulin ?Will hold her home Metformin and Trulicity 4. Hypothyroidism ?Stable ?Continue with Synthroid DVT: Lovenox Charges/Coding Visit Charges Inpatient E&M: 93977 Subs Hosp L2
[2021-05-19] MEDS: Spironolactone 25 MG Tablet PO (10:25)
[2021-05-19] MEDS: Metoprolol Tartrate 25 MG Tablet PO ×2 (10:26→20:46)
[2021-05-19] MEDS: Enoxaparin 30 MG/0.3 ML Syringe SC ×2 (10:27→20:45)
[2021-05-19] MEDS: Gabapentin 600 MG Tablet 1200 MG PO ×2 (10:27→20:47)
[2021-05-19] MEDS: Nystatin Powder 15gm Bottle 1 APPLIC TOPICAL (11:04)
[2021-05-19] MEDS: Insulin Lispro 100 UNIT/ML INSULN.PEN SC ×3 (11:38→20:45)
[2021-05-19 11:46] LABS: Bedside Glucose 181 mg/dL (74-106)
[2021-05-19] MEDS: 0.9% Saline Lock 10 ML Syringe IV ×2 (13:20→20:46)
[2021-05-19] MEDS: Acetaminophen 325 MG Tablet 650 MG PO ×2 (15:56→22:07)
--- NOTE | 2021-05-19 16:10 | PCM.RX.CS ---
Consult Pharmacy has been consulted to manage selected antiobiotic: Vancomycin Type of Consult: Follow-up Suspected Infection: Pneumonia Prior Doses of Antibiotics Received/Current Regimen: current dose is 1250mg IV q8h Labs: Sodium 138 mmol/L (136-145) 05/19/21 03:30 Potassium 3.8 mmol/L (3.5-5.1) 05/19/21 03:30 Chloride 93 mmol/L (98-107) L 05/19/21 03:30 Carbon Dioxide > 45.0 mmol/L (21.0-32.0) H* 05/19/21 03:30 Anion Gap TNP 05/19/21 03:30 BUN 26 mg/dL (7-18) H 05/19/21 03:30 Creatinine 0.77 mg/dL (0.55-1.02) 05/19/21 03:30 Est GFR (MDRD) Af Amer 97 mL/min (>60) 05/19/21 03:30 Est GFR (MDRD) Non-Af 80 mL/min (>60) 05/19/21 03:30 BUN/Creatinine Ratio 33.6 RATIO (10-20) H 05/19/21 03:30 Glucose 140 mg/dL (74-106) H 05/19/21 03:30 Vancomycin Trough 20.0 ug/mL (5.0-15.0) H 05/19/21 14:40 Microbiology: Microbiology 05/18/21 05:50 Sputum, Expectorated/Coughed Gram Stain - Final 05/18/21 05:50 Sputum, Expectorated/Coughed Respiratory Culture - Preliminary Appears to be normal respiratory spike. Further studies to follow. 05/17/21 Unknown Blood Culture (Wb) - Arm Left Blood Culture - Preliminary No growth in 48 hours. 05/17/21 12:50 Blood Culture (Wb) - Anticubital Left Blood Culture - Preliminary No growth in 48 hours. 05/17/21 13:05 Nasal Secretion SARS-CoV-2 & FLU Antigen (Rapid) - Final Weight used for dosin.7 kg Estimated Creatinine Clearance: >100ml/min Goal Trough: 15-20 mcg/mL Pharmacy Plan for Drug Dosing: The vanc trough drawn at 14:40 today (approx 8 hrs after the previous dose) was 20.0, right at the upper limit of the goal range. Since it is that high already, will change the dose to 1750mg IV q12h to allow more time to clear the drug between doses and for the trough to remain within goal range. Estimated new trough is 16.4. The patient's CrCl was calculated using an adjusted body weight of 111.4kg. Pharmacy Service will continue to monitor and adjust dosing as required. Follow-Up Labs: Trough Vancomycin Labs to be done on [date and time ordered]: 05/21/21 04:30
[2021-05-19 16:56] LABS: Bedside Glucose 157 mg/dL (74-106)
[2021-05-19] MEDS: Insulin Glargine-YFGN 100 UNIT/ML Pen 10 UNIT SC (20:45)
[2021-05-19] MEDS: MELATONIN 3 MG TABLET PO (20:47)
[2021-05-19 22:01] LABS: Bedside Glucose 198 mg/dL (74-106)
[2021-05-20] VITALS (19 sets, daily range): BP systolic 130–146; BP diastolic 68–82; PULSE 69–79; RESP 18–20; TEMP 36.2–36.9; O2SAT 82–100
[2021-05-20] MEDS: 0.9% Saline Lock 10 ML Syringe IV ×5 (05:04→21:11)
[2021-05-20] MEDS: Furosemide 40 MG/4 ML Vial IV ×3 (06:32→20:49)
[2021-05-20] MEDS: Levothyroxine 100 MCG Tablet 200 MCG PO (06:32)
[2021-05-20 06:47] LABS: Absolute Lymphocyte Count 1.03 X10^3/uL (0.83-4.51); Absolute Neutrophil Count 5.3 X10^3/uL (2.0-7.7); Basophil# 0.02 X10^3/uL; Basophil% 0.3 % (0-1); Eosinophil# 0.17 X10^3/uL; Eosinophils% 2.3 % (0-5); Hematocrit 31.2 % (37-47); Hemoglobin 9.2 g/dL (12.0-15.0); Lymphocyte # 1.03 X10^3/ul (0.83-4.51); Lymphocyte % 14.1 % (19-41); Mean Corp Hgb Conc 29.5 g/dL (32-36); Mean Corpuscular Hgb 30.3 pg (27.0-32.0); Mean Corpuscular Volume 102.6 fL (81-99); Mean Platelet Vol. 11.1 fl (6.2-12.0); Monocyte# 0.75 X10^3/uL; Monocyte% 10.2 % (0-10); NRBC Flagged by Analyzer 0 % (0-5); Neutrophil # 5.33 X10^3/uL (2.7-7.7); Neutrophil % 72.7 % (47-70); Platelet Count 118 K/mm3 (150-450); RBC Distribution Width CV 14.9 % (11.6-14.6); Red Blood Count 3.04 M/mm3 (4.2-5.4); White Blood Count 7.3 K/mm3 (4.4-11.0)
[2021-05-20 06:51] LABS: Bedside Glucose 133 mg/dL (74-106)
[2021-05-20 07:12] LABS: Anion Gap 1 (5-15); BUN 23 mg/dL (7-18); BUN/Creat Ratio 31.5 RATIO (10-20); Calcium,Total 8.7 mg/dL (8.5-10.1); Chloride 95 mmol/L (98-107); Creatinine, Serum 0.73 mg/dL (0.55-1.02); EST Glomerular Filtration Rate 85 mL/min (>60); Est Glom Filt Rate - Afr Amer 103 mL/min (>60); Glucose 138 mg/dL (74-106); Potassium 3.8 mmol/L (3.5-5.1); Sodium Level 139 mmol/L (136-145)
[2021-05-20] MEDS: Nystatin Powder 15gm Bottle 1 APPLIC TOPICAL (09:10)
[2021-05-20] MEDS: Gabapentin 600 MG Tablet 1200 MG PO ×2 (09:11→20:49)
[2021-05-20] MEDS: Enoxaparin 30 MG/0.3 ML Syringe SC ×2 (09:11→20:51)
[2021-05-20] MEDS: Metoprolol Tartrate 25 MG Tablet PO ×2 (09:11→20:49)
[2021-05-20] MEDS: Spironolactone 25 MG Tablet PO (09:12)
[2021-05-20 12:06] LABS: Bedside Glucose 133 mg/dL (74-106)
--- NOTE | 2021-05-20 14:32 | PN.HOSP_ITS ---
Subjective Subjective Doing well, feels better than when she came in. Still edematous and volume overloaded. Objective Data Objective Data Vital Signs: Vital Signs Temp Pulse Resp BP Pulse Ox 98.4 F 79 18 141/80 H 98 05/20/21 09:05 05/20/21 09:11 05/20/21 09:05 05/20/21 09:11 05/20/21 12:50 Oxygen Flow Rate (L/min) [ 5 AMBULATING with Oxygen #3] Oxygen Flow Rate (L/min) [ 4 AMBULATING with Oxygen #2] Oxygen Flow Rate (L/min) [ 3 AMBULATING with Oxygen #1] Oxygen Flow Rate (L/min) [At 3 REST with Oxygen] Oxygen Flow Rate (L/min) 4 Oxygen Delivery Method Nasal Cannula Weight: 376 lb 15.847 oz Body Mass Index (BMI) 55.0 Intake & Output: Intake and Output for Last 24 Hours 05/19/21 05/20/21 05/21/21 03:59 03:59 03:59 Intake Total 2215 / 2215 1660 / 1660 752.50 / 752.50 Output Total 4250 / 4250 6875 / 6875 950 / 950 Balance -2035 / -2035 -5215 / -5215 -197.50 / -197.50 Lab / Micro Data Result Diagrams: 05/20/21 05:32 05/20/21 05:32 Labs: Laboratory Results - last 24 hr 05/19/21 14:40: Vancomycin Trough 20.0 H 05/19/21 16:42: POC Glucose 157 H 05/19/21 20:39: POC Glucose 198 H 05/20/21 05:32: WBC 7.3, RBC 3.04 L, Hgb 9.2 L, Hct 31.2 L, MCV 102.6 H, MCH 30. 3, MCHC 29.5 L, RDW Std Deviation 56.0 H, RDW Coeff of Danielle 14.9 H, Plt Count 118 L, MPV 11.1, Immature Gran % (Auto) 0.400, Neut % (Auto) 72.7 H, Lymph % (Auto) 14.1 L, [place] % (Auto) 10.2 H, Eos % (Auto) 2.3, Baso % (Auto) 0.3, Absolute Ne uts (auto) 5.3, Absolute Lymphs (auto) 1.03, Nucleated RBC % 0 05/20/21 05:32: Sodium 139, Potassium 3.8, Chloride 95 L, Carbon Dioxide 43.0 H, Anion Gap 1 L, BUN 23 H, Creatinine 0.73, Estim Creat Clear Calc 85.30, Est GFR (MDRD) Af Amer 103, Est GFR (MDRD) Non-Af 85, BUN/Creatinine Ratio 31.5 H, Glucose 138 H, Calcium 8.7 05/20/21 06:35: POC Glucose 133 H 05/20/21 12:01: POC Glucose 133 H Micro: Microbiology 05/18/21 05:50 Sputum, Expectorated/Coughed Gram Stain - Final 05/18/21 05:50 Sputum, Expectorated/Coughed Respiratory Culture - Final 05/17/21 Unknown Blood Culture (Wb) - Arm Left Blood Culture - Preliminary No growth in 48 hours. 05/17/21 12:50 Blood Culture (Wb) - Anticubital Left Blood Culture - Preliminary No growth in 48 hours. 05/17/21 13:05 Nasal Secretion SARS-CoV-2 & FLU Antigen (Rapid) - Final Rhythm Strip Rhythm Strip: Sinus Rhythm Rate: 91 Ectopy: None Physical Exam Const alert, oriented x3 and no apparent distress General Appearance: lethargic and on BiPAP HEENT normocephalic and moist oral mucous membranes Eyes PERRL, EOMs intact bilaterally and conjunctivae normal Neck supple and no JVD Resp normal respiratory effort, normal air movement, no retractions and no use of accessory muscles Effort and Inspection: tachypneic Auscultation: diminished lung sounds; Negative for crackles, rales, rhonchi or wheezes Cardio regular rate, regular rhythm, S1 normal heart sound, S2 normal heart sound and no murmurs GI soft to palpation, non-tender and non-distended; Negative for hepatosplenomegaly Extremity no clubbing, cyanosis or edema General Extremity: edema; Negative for clubbing or cyanosis Skin no rashes or lesions noted Neuro no focal motor deficits and no sensory deficits noted Psych affect normal Appearance: appropriate Mood & Affect: flat affect Assessment & Plan Assessment/Plan (1) Bilateral interstitial pneumonia: (2) Acute respiratory acidosis: (3) Respiratory failure: PLAN: 1. Acute hypoxic respiratory failure secondary to bilateral pneumonia/metabolic encephalopathy ?Given her body habitus she likely does have a component of obstructive sleep apnea, she is chronically on 4 L since January because of Covid ?CT of the chest shows bilateral pneumonia/possible pulmonary edema versus ARDS ?Continue with aggressive diuresis, echo with an RVSP of 60 mmHg. ?Continue with BiPAP as needed, will trial her off of BiPAP at night if if she is able to maintain her oxygen sats on nasal cannula ?She would likely need a sleep study to evaluate for probable DONA ?Blood and sputum cultures are negative 2. HTN/chronic diastolic CHF/pulmonary hypertension ?Blood pressures currently are stable ?Echo with normal EF and RVSP of 60 mmHg ?Continue with her metoprolol, Aldactone ?Continue with aggressive diuresis ?Previous admission she did not have an echo secondary to her respiratory distress being related to Covid 3. DM2 with peripheral neuropathy ?We will continue with long-acting insulin, her A1c was 7.5 back in November ?Accu-Cheks AC at bedtime with sliding scale insulin ?Will hold her home Metformin and Trulicity 4. Hypothyroidism ?Stable ?Continue with Synthroid DVT: Lovenox Charges/Coding Visit Charges Inpatient E&M: 95341 Subs Hosp L2
[2021-05-20 17:21] LABS: Bedside Glucose 121 mg/dL (74-106)
--- NOTE | 2021-05-20 18:45 | NURSING ---
Reviewed charting with Bonita Mills RN
[2021-05-20] MEDS: Benzonatate 100 MG Capsule PO (20:48)
[2021-05-20] MEDS: Acetaminophen 325 MG Tablet 650 MG PO (20:48)
[2021-05-20] MEDS: MELATONIN 3 MG TABLET PO (20:48)
[2021-05-20] MEDS: Insulin Glargine-YFGN 100 UNIT/ML Pen 10 UNIT SC (20:50)
[2021-05-20] MEDS: Ondansetron 4 MG/2 ML Vial IV (21:11)
[2021-05-20] MEDS: Albuterol 2.5 MG/3 ML VIAL.NEB. INHALATION (21:52)
[2021-05-20 21:56] LABS: Bedside Glucose 146 mg/dL (74-106)
[2021-05-21] VITALS (12 sets, daily range): BP systolic 116–135; BP diastolic 63–74; PULSE 71–82; RESP 16–18; TEMP 36.6; O2SAT 85–98
[2021-05-21] MEDS: Acetaminophen 325 MG Tablet 650 MG PO ×2 (03:09→09:11)
[2021-05-21 05:10] LABS: Anion Gap 1 (5-15); BUN 21 mg/dL (7-18); BUN/Creat Ratio 26.7 RATIO (10-20); Calcium,Total 8.5 mg/dL (8.5-10.1); Chloride 95 mmol/L (98-107); Creatinine, Serum 0.79 mg/dL (0.55-1.02); EST Glomerular Filtration Rate 78 mL/min (>60); Est Glom Filt Rate - Afr Amer 95 mL/min (>60); Estimated Creatinine Clearance 78.82 ml/min; Glucose 147 mg/dL (74-106); Potassium 4.3 mmol/L (3.5-5.1); Sodium Level 138 mmol/L (136-145)
[2021-05-21 05:12] LABS: Vancomycin, Trough Level 16.3 ug/mL (5.0-15.0)
[2021-05-21] MEDS: Furosemide 40 MG/4 ML Vial IV ×2 (05:16→13:55)
[2021-05-21] MEDS: Levothyroxine 100 MCG Tablet 200 MCG PO (05:16)
[2021-05-21] MEDS: 0.9% Saline Lock 10 ML Syringe IV ×2 (05:16→13:55)
--- NOTE | 2021-05-21 05:40 | PCM.RX.CS ---
Consult Type of Consult: Follow-up Suspected Infection: Pneumonia Labs: Sodium 138 mmol/L (136-145) 05/21/21 04:27 Potassium 4.3 mmol/L (3.5-5.1) 05/21/21 04:27 Chloride 95 mmol/L (98-107) L 05/21/21 04:27 Carbon Dioxide 42.0 mmol/L (21.0-32.0) H 05/21/21 04:27 Anion Gap 1 (5-15) L 05/21/21 04:27 BUN 21 mg/dL (7-18) H 05/21/21 04:27 Creatinine 0.79 mg/dL (0.55-1.02) 05/21/21 04:27 Est GFR (MDRD) Af Amer 95 mL/min (>60) 05/21/21 04:27 Est GFR (MDRD) Non-Af 78 mL/min (>60) 05/21/21 04:27 BUN/Creatinine Ratio 26.7 RATIO (10-20) H 05/21/21 04:27 Glucose 147 mg/dL (74-106) H 05/21/21 04:27 Vancomycin Trough 16.3 ug/mL (5.0-15.0) H 05/21/21 04:27 Microbiology: Microbiology 05/18/21 05:50 Sputum, Expectorated/Coughed Gram Stain - Final 05/18/21 05:50 Sputum, Expectorated/Coughed Respiratory Culture - Final 05/17/21 Unknown Blood Culture (Wb) - Arm Left Blood Culture - Preliminary No growth in 48 hours. 05/17/21 12:50 Blood Culture (Wb) - Anticubital Left Blood Culture - Preliminary No growth in 48 hours. 05/17/21 13:05 Nasal Secretion SARS-CoV-2 & FLU Antigen (Rapid) - Final Goal Trough: 15-20 mcg/mL Pharmacy Plan for Drug Dosing: VANCOMYCIN LEVEL RECEIVED Current Vancomycin Dose: 1750mg Q12H Number of Doses Received:4 Vancomycin Level: 16.3 Hours Since Last Dose: 11.5 Renal Function: sCr 0.79 Renal Function Trend: stable Vancomycin Plan/Comments: Continue Vancomycin 1750mg Q12H Pending Level: Vancomycin trough @ 0430 05/23/21 Pharmacy Service will continue to monitor and adjust dosing as required. Labs to be done on [date and time ordered]: Vancomycin trough @ 0430 05/23/21
[2021-05-21] MEDS: Benzonatate 100 MG Capsule PO ×2 (09:14→11:41)
[2021-05-21] MEDS: Nystatin Powder 15gm Bottle 1 APPLIC TOPICAL (10:59)
[2021-05-21] MEDS: Spironolactone 25 MG Tablet PO (10:59)
[2021-05-21] MEDS: Gabapentin 600 MG Tablet 1200 MG PO (10:59)
[2021-05-21] MEDS: Metoprolol Tartrate 25 MG Tablet PO (10:59)
[2021-05-21] MEDS: Enoxaparin 30 MG/0.3 ML Syringe SC (10:59)
[2021-05-21] MEDS: Insulin Lispro 100 UNIT/ML INSULN.PEN SC (11:38)
[2021-05-21 11:46] LABS: Bedside Glucose 208 mg/dL (74-106)
--- NOTE | 2021-05-21 12:50 | PN.CC_ITS ---
Assessment & Plan Assessment/Plan (1) Respiratory failure: PLAN: RECOMMENDATIONS: 1. Wean supplemental oxygen to maintain saturations at or above 90%. 2. Continue diuretic therapy as tolerated by hemodynamics and renal function. 3. Encourage incentive spirometer use and mobilize patient as tolerated. 4. Perform ambulatory pulse ox prior to discharge. 5. Outpatient pulmonary follow-up in 2 weeks. Recommend baseline PFTs and diagnostic work-up for sleep apnea. IMPRESSIONS: 1. Acute on chronic combined respiratory failure Likely secondary to acute decompensated heart failure with preserved ejection fraction. The patient has responded to diuretic therapy. Infectious work-up was unrevealing. Therefore, antimicrobials were discontinued. Recommend continuing diuresis as tolerated by hemodynamics and renal function. Given that the patient did have evidence of pulmonary hypertension on her echocardiogram, it is certainly reasonable to schedule her for an outpatient pulmonary follow-up so that baseline PFTs and diagnostic work-up for sleep apnea can be completed. 2. Acute metabolic encephalopathy Secondary to hypercapnia, which responded to noninvasive positive pressure ventilatory support. The patient is mentating appropriately. Plan to proceed with outpatient sleep apnea work-up and institution of Pap therapy, as indicated. 3. Morbid obesity/pulmonary hypertension/diabetes mellitus/hypothyroidism Complicates care, management, recovery and prognosis. Continue home medications as indicated. This note was generated with [employer] dictation software. It may contain incorrect words, spelling, and punctuation that were not noted in checking the note before signing. Subjective Subjective The patient was seen and examined at the bedside this morning. Events from the last 24 hours have been reviewed. The patient is currently afebrile, hemodynamically stable and maintaining appropriate oxygen saturations on 4 L/min via nasal cannula. The patient is currently documented to be overall net -12 L for the hospitalization. She remains on scheduled IV Lasix. Her breathing quality has improved. The patient is agreeable to outpatient pulmonary follow- up to facilitate sleep apnea work-up. Objective Data Objective Data The patient's most recent lab work, culture data and imaging studies have all been personally reviewed. Surface echocardiogram dated May 18 demonstrated evidence of diastolic dysfunction with an ejection fraction of 65%. Right ventricular systolic pressure was estimated to be 60 mmHg. Infectious work-up has been unrevealing to date. Vital Signs: Vital Signs Temp Pulse Resp BP Pulse Ox 97.8 F 74 16 116/66 96 05/21/21 09:19 05/21/21 12:34 05/21/21 09:19 05/21/21 09:19 05/21/21 09:52 Oxygen Flow Rate (L/min) [ 5 AMBULATING with Oxygen #3] Oxygen Flow Rate (L/min) [ 4 AMBULATING with Oxygen #2] Oxygen Flow Rate (L/min) [ 3 AMBULATING with Oxygen #1] Oxygen Flow Rate (L/min) [At 3 REST with Oxygen] Oxygen Flow Rate (L/min) 4 Oxygen Delivery Method Nasal Cannula Weight: 172.3 kg Body Mass Index (BMI) 55.0 Intake & Output: Intake and Output for Last 24 Hours 05/19/21 05/20/21 05/21/21 23:59 23:59 23:59 Intake Total 1935 / 1935 1687.50 / 1687.50 746.46 / 746.46 Output Total 6875 / 6875 6350 / 6350 1425 / 1425 Balance -4940 / -4940 -4662.50 / -4662.50 -678.54 / -678.54 Lab / Micro Data Attestation: I reviewed the patient's lab results. Result Diagrams: 05/20/21 05:32 05/21/21 04:27 Labs: Laboratory Results - last 24 hr 05/20/21 16:47: POC Glucose 121 H 05/20/21 20:44: POC Glucose 146 H 05/21/21 04:27: Vancomycin Trough 16.3 H 05/21/21 04:27: Sodium 138, Potassium 4.3, Chloride 95 L, Carbon Dioxide 42.0 H, Anion Gap 1 L, BUN 21 H, Creatinine 0.79, Estim Creat Clear Calc 78.82, Est GFR (MDRD) Af Amer 95, Est GFR (MDRD) Non-Af 78, BUN/Creatinine Ratio 26.7 H, Glucose 147 H, Calcium 8.5 05/21/21 11:21: POC Glucose 208 H Micro: Microbiology 05/18/21 05:50 Sputum, Expectorated/Coughed Gram Stain - Final 05/18/21 05:50 Sputum, Expectorated/Coughed Respiratory Culture - Final 05/17/21 Unknown Blood Culture (Wb) - Arm Left Blood Culture - Preliminary No growth in 48 hours. 05/17/21 12:50 Blood Culture (Wb) - Anticubital Left Blood Culture - Preliminary No growth in 48 hours. 05/17/21 13:05 Nasal Secretion SARS-CoV-2 & FLU Antigen (Rapid) - Final Rhythm Strip Rhythm Strip: Sinus Rhythm Rate: 91 Ectopy: None Physical Exam Const alert and no apparent distress Constitutional Narrative: Sitting in bedside recliner. Family is present at the bedside. General Appearance: cooperative HEENT normocephalic and head/scalp atraumatic Eyes PERRL, EOMs intact bilaterally and conjunctivae normal Neck supple General: trachea midline Chest inspection of chest normal Resp Auscultation: diminished lung sounds Cardio regular rate and regular rhythm GI normal to inspection, nondistended, normoactive bowel sounds Extremity General Extremity: edema bilateral lower extremity; Negative for clubbing Skin no rashes or lesions noted Neuro CN's II-XII intact bilaterally, moves all extremities and no focal motor deficits Psych cooperative and affect normal Charges/Coding Visit Charges Inpatient E&M: 51682 Subs Hosp L2
--- NOTE | 2021-05-21 13:13 | DCINST_ITS ---
Discharge Instructions Diet Discharge Diet: Low fat / Low cholesterol, 6 Cup Fluid Restriction, 2000 mg Sodium Diet and Carb Control Diet Activity Discharge Activity: Return to Normal Activity Dressing / Incision Call your doctor if you observe: Fever of 101 or Higher, Shortness of breath, Dizziness, Fainting spells, Swelling in the ankles, Chest pain and Increased palpitations (irregular heartbeat) Follow Up Care Test Results: Test results from this visit will be discussed in further detail at your follow-up appointment, if applicable. Discharge Plan Admission Admit Date/Time: 05/17/21 18:15 Attending Provider: Mich Beck Primary Care Provider: Lidya Mathias Consulting Providers: Fredo Huitron ; Bassam Robles ; Lian Rizvi NP Discharge Orders/Prescriptions Prescriptions: Continued spironolactone 25 MG tablet 25 mg PO DAILY RF: 0 potassium chloride [Klor-Con M20] 20 MEQ tablet,ER particles/crystals 20 meq PO DAILY RF: 0 metoprolol tartrate 25 MG tablet 25 mg PO BID RF: 0 multivitamin with folic acid [Thera] 1 TABLET tablet 1 tab PO DAILY RF: 0 ibuprofen 600 MG tablet 600 mg PO Q6H PRN PRN (Reason: Pain) Qty: 30 RF: 0 metformin 500 mg tablet 1,000 mg PO BID RF: 0 albuterol sulfate 2.5 mg /3 mL (0.083 %) Solution For Nebulization 2.5 mg INHALATION Q4H PRN (Reason: SOB) RF: 0 ammonium lactate 12 % lotion 1 ea TOPICAL DAILY RF: 0 exemestane 25 mg tablet 25 mg PO DAILY RF: 0 benzonatate 100 mg capsule 100 mg PO TID PRN (Reason: Cough) RF: 0 gabapentin 300 mg capsule 1,200 mg PO BID RF: 0 hydroxyzine HCl 25 mg tablet 25 mg PO DAILY PRN (Reason: itching) RF: 0 levothyroxine [Euthyrox] 200 mcg tablet 200 mcg PO DAILY RF: 0 fluticasone propionate 50 mcg/actuation spray,suspension 2 spray INTRANASAL DAILY RF: 0 metoclopramide HCl 10 mg tablet 10 mg PO Q6H PRN (Reason: GERD) RF: 0 Trulicity 0.75 mg/0.5 mL pen injector 0.75 mg SUBCUT DAWN RF: 0 Changed furosemide 40 MG tablet 60 mg PO BIDLX 30 Days Qty: 90 RF: 0 Referrals / Follow Up: Lidya Mathias MD [Primary Care Provider] - Within 1 Week Lian Rizvi NP, DATA INTEGRATION DEVELOPER-C [Nurse Practitioner] - Within 2 Weeks Disposition Disposition (needs filled in before D/C Order can be placed): Home, Self Care
--- NOTE | 2021-05-21 13:18 | PCM.DC.SUM ---
Providers Date of Admission: 05/17/21 Primary Care Physician: Dr. Lidya Mathias MD Consultations 05/17/21 18:40 Consult: Steam Finisher / Pulmonary Medicine Routine Consulting Provider: Pulmonary Medicine stewart Woodruff Reason for Consult: Pneumonia with resp failure EMERGENT Consult: No MD Notified: Yes Date Notified: 05/17/21 Time Notified: 18:57 Method of Notification: Text Reason For Visit: RESPIRATORY FAILURE Diagnosis Discharge Diagnosis (1) Bilateral interstitial pneumonia: Status: Acute Code(s): J84.9 - Interstitial pulmonary disease, unspecified (2) Acute respiratory acidosis: Status: Acute Code(s): E87.2 - Acidosis (3) Respiratory failure: Status: Acute Code(s): J96.90 - Respiratory failure, unspecified, unspecified whether with hypoxia or hypercapnia Medications at Discharge Home Medications ibuprofen 600 mg PO Q6H PRN PRN #30 tablet 07/15/13 metoprolol tartrate 25 mg PO BID 07/15/13 multivitamin with folic acid [Thera] 1 tab PO DAILY 07/15/13 potassium chloride [Klor-Con M20] 20 meq PO DAILY 07/15/13 spironolactone 25 mg PO DAILY 07/15/13 Trulicity 0.75 mg SUBCUT DAWN 05/17/21 albuterol sulfate 2.5 mg INHALATION Q4H PRN 05/17/21 ammonium lactate 1 ea TOPICAL DAILY 05/17/21 benzonatate 100 mg PO TID PRN 05/17/21 exemestane 25 mg PO DAILY 05/17/21 fluticasone propionate 2 spray INTRANASAL DAILY 05/17/21 gabapentin 1,200 mg PO BID 05/17/21 hydroxyzine HCl 25 mg PO DAILY PRN 05/17/21 levothyroxine [Euthyrox] 200 mcg PO DAILY 05/17/21 metformin 1,000 mg PO BID 05/17/21 metoclopramide HCl 10 mg PO Q6H PRN 05/17/21 furosemide 60 mg PO BIDLX 30 Days #90 tab 05/21/21 Hospital Course Operations None Procedures 2-D Echocardiogram Summary of Care Provided Minutes Spent on Discharge: 60 Hospital Course: Per HPI: YASMANI MCLAIN, is a 61 F who presents with altered mental status and respiratory failure. Family noticed that she has been more somnolent over the last several days and they thought this was secondary to just not being able to sleep very well however today she was not responding to questions appropriately so they called EMS. She has been on 4 L nasal cannula since she had Covid back in January 2021. When EMS arrived they noted that she was about 83% on her 4 L and was lethargic. Family has not noticed any increased sputum production, and they have not noted any recent illness or fevers. Unfortunately she is not very interactive for history taking. In the ER CTA of the chest demonstrated no PEs but did show bilateral pneumonia versus pulmonary edema versus ARDS. She was started on BiPAP because they obtained an ABG that demonstrated a pH of 7.19 and a PCO2 of 119.6. This has improved since she has been in the ER with BiPAP Hospital Course: 1. Acute hypoxic and hypercapnic respiratory failure secondary to acute pulmonary edema from pulmonary hypertension/metabolic encephalopathy/HTN/chronic diastolic CHF?61-year-old female presented from home with acute respiratory distress and altered mental status from hypercapnic respiratory failure. She was initially started on BiPAP and had quick resolution of her altered mental status. She was also found to have pulmonary hypertension on echo and was started on aggressive diuresis. She has diuresed over 12 L since she has been here without any issue in her renal function. She could benefit from a few more days of diuresis however she would like to go home today. I discussed with her the plan for discharge and she expressed understanding of the risks and benefits of discharge and she would like to go home. I did have extensive discussion with the family on dietary lifestyle modifications as well as had to do the fluid restriction to 1500 cc/day. She will need follow-up with her PCP as an outpatient to monitor her renal function as well as following up with pulmonology in 2 weeks to get a sleep study to evaluate for sleep apnea and initiation of CPAP at night. Her other medications were continued. 2. Type 2 diabetes with peripheral neuropathy, hypothyroidism all chronic medical conditions which complicate her care. Her home medications were continued were appropriate Physical Exam Const alert, oriented x3 and no apparent distress General Appearance: cooperative HEENT normocephalic and moist oral mucous membranes Eyes PERRL, EOMs intact bilaterally and conjunctivae normal Neck supple and no JVD Resp normal respiratory effort, normal air movement, no retractions and no use of accessory muscles Auscultation: diminished lung sounds; Negative for crackles, rales, rhonchi or wheezes Cardio regular rate, regular rhythm, S1 normal heart sound, S2 normal heart sound and no murmurs GI soft to palpation, non-tender and non-distended; Negative for hepatosplenomegaly Extremity General Extremity: edema; Negative for clubbing or cyanosis Skin no rashes or lesions noted Neuro no focal motor deficits and no sensory deficits noted Psych affect normal Appearance: appropriate Weight / BMI Weight Weight: 379 lb 13.703 oz Body Mass Index (BMI) 55.0 ABG / Lab / Microbiology Data Result Diagrams: 05/20/21 05:32 05/21/21 04:27 Laboratory: Laboratory Results - last 24 hr 05/20/21 16:47: POC Glucose 121 H 05/20/21 20:44: POC Glucose 146 H 05/21/21 04:27: Vancomycin Trough 16.3 H 05/21/21 04:27: Sodium 138, Potassium 4.3, Chloride 95 L, Carbon Dioxide 42.0 H, Anion Gap 1 L, BUN 21 H, Creatinine 0.79, Estim Creat Clear Calc 78.82, Est GFR (MDRD) Af Amer 95, Est GFR (MDRD) Non-Af 78, BUN/Creatinine Ratio 26.7 H, Glucose 147 H, Calcium 8.5 05/21/21 11:21: POC Glucose 208 H Microbiology: Microbiology 05/18/21 05:50 Sputum, Expectorated/Coughed Gram Stain - Final 05/18/21 05:50 Sputum, Expectorated/Coughed Respiratory Culture - Final 05/17/21 Unknown Blood Culture (Wb) - Arm Left Blood Culture - Preliminary No growth in 48 hours. 05/17/21 12:50 Blood Culture (Wb) - Anticubital Left Blood Culture - Preliminary No growth in 48 hours. 05/17/21 13:05 Nasal Secretion SARS-CoV-2 & FLU Antigen (Rapid) - Final D/C Instructions Discharge Diet: Low fat / Low cholesterol, 6 Cup Fluid Restriction, 2000 mg Sodium Diet and Carb Control Diet Call your doctor if you observe: Fever of 101 or Higher, Shortness of breath, Dizziness, Fainting spells, Swelling in the ankles, Chest pain and Increased palpitations (irregular heartbeat) Meaningful Use Info Meaningful Use Diagnoses (Choose all that apply): None applicable Discharge Plan Admission Admit Date/Time: 05/17/21 18:15 Attending Provider: Mich Beck Primary Care Provider: Lidya Mathias Consulting Providers: Fredo Huitron ; Bassam Robles ; Lian Rizvi NP Discharge Orders/Prescriptions Prescriptions: Continued spironolactone 25 MG tablet 25 mg PO DAILY RF: 0 potassium chloride [Klor-Con M20] 20 MEQ tablet,ER particles/crystals 20 meq PO DAILY RF: 0 metoprolol tartrate 25 MG tablet 25 mg PO BID RF: 0 multivitamin with folic acid [Thera] 1 TABLET tablet 1 tab PO DAILY RF: 0 ibuprofen 600 MG tablet 600 mg PO Q6H PRN PRN (Reason: Pain) Qty: 30 RF: 0 metformin 500 mg tablet 1,000 mg PO BID RF: 0 albuterol sulfate 2.5 mg /3 mL (0.083 %) Solution For Nebulization 2.5 mg INHALATION Q4H PRN (Reason: SOB) RF: 0 ammonium lactate 12 % lotion 1 ea TOPICAL DAILY RF: 0 exemestane 25 mg tablet 25 mg PO DAILY RF: 0 benzonatate 100 mg capsule 100 mg PO TID PRN (Reason: Cough) RF: 0 gabapentin 300 mg capsule 1,200 mg PO BID RF: 0 hydroxyzine HCl 25 mg tablet 25 mg PO DAILY PRN (Reason: itching) RF: 0 levothyroxine [Euthyrox] 200 mcg tablet 200 mcg PO DAILY RF: 0 fluticasone propionate 50 mcg/actuation spray,suspension 2 spray INTRANASAL DAILY RF: 0 metoclopramide HCl 10 mg tablet 10 mg PO Q6H PRN (Reason: GERD) RF: 0 Trulicity 0.75 mg/0.5 mL pen injector 0.75 mg SUBCUT DAWN RF: 0 Changed furosemide 40 MG tablet 60 mg PO BIDLX 30 Days Qty: 90 RF: 0 Referrals / Follow Up: Lidya Mtahias MD [Primary Care Provider] - Within 1 Week Lian Rizvi NP, PLANT TAXONOMY TEACHER-C [Nurse Practitioner] - Within 2 Weeks Disposition Disposition (needs filled in before D/C Order can be placed): Home, Self Care Charges/Coding Visit Charges Inpatient E&M: 88458 Disch Hosp
[2021-05-21] MEDS: Ibuprofen 400 MG Tablet PO (13:47)
--- NOTE | 2021-05-21 14:25 | CHAPLAIN ---
Type of Pastoral Visit ___ Initial Visit _x__ Follow-up Visit ___ On-call Visit ___ General Patient Visit ___ Spiritual Assessment ___ Family Conference ___ Bereavement ___ Rapid Response ___ Code Blue ___ Other (describe below) Pastoral Care Referral From _x__ Patient _x__ Family ___ Nurse ___ Physician ___ Executive Coach ___ Leadlighter ___ Other (describe below) Sacrament/Intervention _x__ Active listening ___ Anointing ___ Jehovah'S Witness ___ Bereavement ___ Communion ___ Promise exploration ___ ___ Life review _x__ Prayer ___ Reconciliation ___ Sacrament of Sick _x__ Supportive presence ___ Wedding ___ Other (describe below) Pastoral Comments patient has just finished her lunch and speaks of getting another test done soon; pt wants to go home but also understands it will not be today; son and daughter in the room; son speaks up about recent of his father/spouse of patient; son talks openly about grief and asks questions of this 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
--- NOTE | 2021-05-21 14:33 | CASEMGMT ---
Per Rosa EVANS, pt now qualifies for 4L continuous home oxygen and new order faxed to [facility] [place]. [facility] order for SN placed with addition of PT/OT. Call to Claudia at [facility] to notify of pt discharge, voices understanding. Pt voices no further questions/concerns/needs. Roberto EVANS CM
[2021-05-21 16:11] LABS: Bedside Glucose 144 mg/dL (74-106)
--- NOTE | 2021-05-21 16:18 | CASEMGMT ---
Green sheet left on chart for [employer] for increased home oxygen need and stated for pt to be tested on 3L at rest and with exertion. Per family, pt has home oxygen set up thru [facility] and they will need a tank for pt to go home with as they did not bring one with them. Call to [facility] and she states home order is for 4L continuous and this was updated in 02/06. [facility] states they will bring tank for pt. Family updated on all, voice understanding. Family aware [facility] will call to set up [facility] and that f/u appt's were made for pulm and PCP, voice understanding. Pt/family voice no further questions/concerns/needs. Roberto EVANS CM
--- NOTE | 2021-05-21 16:18 | CASEMGMT ---
Green sheet left on chart for [employer] for increased home oxygen need and stated for pt to be tested on 3L at rest and with exertion. Per family, pt has home oxygen set up thru [facility] and they will need a tank for pt to go home with as they did not bring one with them. Call to [facility] and she states home order is for 4L continuous and this was updated in 02/07. [facility] states they will bring tank for pt. Family updated on all, voice understanding. Family aware [facility] will call to set up [facility] and that f/u appt's were made for pulm and PCP, voice understanding. Pt/family voice no further questions/concerns/needs. Roberto EVANS CM
== END 2021-05-21 19:14 | disposition home or self-care (01) | DRG 196 ==
LOC: ED 14:50 → ICU 18:38 → PCU 05-19 12:13
PROVIDERS: Hospitalist; Nurse Practitioner; Admitting Provider Family Medicine; Emergency Provider Emergency Medicine; PCP Internal Medicine; Visit Provider Family Medicine
DX: J84.9 Interstitial pulmonary disease, unspecified (principal); J96.21 Acute and chronic respiratory failure with hypoxia; I50.33 Acute on chronic diastolic (congestive) heart failure; G93.41 Metabolic encephalopathy; J96.22 Acute and chronic respiratory failure with hypercapnia; Z68.43 Body mass index [BMI] 50.0-59.9, adult; E87.2 Acidosis; I27.20 Pulmonary hypertension, unspecified; I11.0 Hypertensive heart disease with heart failure; E11.42 Type 2 diabetes mellitus with diabetic polyneuropathy; E66.01 Morbid (severe) obesity due to excess calories; G47.33 Obstructive sleep apnea (adult) (pediatric); E03.9 Hypothyroidism, unspecified; K21.9 Gastro-esophageal reflux disease without esophagitis; Z20.822 Contact with and (suspected) exposure to COVID-19; Z99.81 Dependence on supplemental oxygen; Z86.16 Personal history of COVID-19
CPT/HCPCS: 36415; 36600; 71045; 71275; 80048; 80202; 81001; 82803; 82962; 83605; 83880; 84484; 85025; 87040; 87070; 87205; 87428; 93005; 93306; 94002; 94003; 94640; 94762; 97110; 97162; 97166; 97530; 97535; 97802; 97803; 99285; J7030; J7040; J7050; Q9957; Q9967; A4216; C8929; J1940; J2405

== ENCOUNTER → 2021-06-07 | Outpatient (CLI) | payer OTHER, SELFPAY ==
[2021-06-07 15:28] LABS: Anion Gap 3 (5-15); BUN 18 mg/dL (7-18); BUN/Creat Ratio 24.4 RATIO (10-20); Calcium,Total 9.2 mg/dL (8.5-10.1); Chloride 94 mmol/L (98-107); Creatinine, Serum 0.74 mg/dL (0.55-1.02); EST Glomerular Filtration Rate 84 mL/min (>60); Est Glom Filt Rate - Afr Amer 102 mL/min (>60); Glucose 244 mg/dL (74-106); Potassium 4.4 mmol/L (3.5-5.1); Sodium Level 136 mmol/L (136-145)
== END | disposition home or self-care (01) ==
LOC: HHLAB 12:49
PROVIDERS: PCP Internal Medicine; Referring Provider Internal Medicine; Visit Provider Internal Medicine
DX: U07.1 COVID-19 (principal); J18.9 Pneumonia, unspecified organism; U09.9 Post COVID-19 condition, unspecified
CPT/HCPCS: 80048

== ENCOUNTER → 2021-06-18 | Outpatient (CLI) | payer OTHER, SELFPAY | END | disposition home or self-care (01) | PROVIDERS: PCP Internal Medicine; Visit Provider Nurse Practitioner Acute Care | DX: G47.33 Obstructive sleep apnea (adult) (pediatric) (principal) | CPT/HCPCS: 95811 ==

== ENCOUNTER 2021-06-27 15:17 | Outpatient (RCR) | payer OTHER, SELFPAY ==
[2021-06-27 16:05] LABS: Anion Gap 5 (5-15); BUN 14 mg/dL (7-18); BUN/Creat Ratio 20.6 RATIO (10-20); Calcium,Total 9.1 mg/dL (8.5-10.1); Chloride 96 mmol/L (98-107); Creatinine, Serum 0.68 mg/dL (0.55-1.02); EST Glomerular Filtration Rate 93 mL/min (>60); Est Glom Filt Rate - Afr Amer 112 mL/min (>60); Glucose 104 mg/dL (74-106); Potassium 4.5 mmol/L (3.5-5.1); Sodium Level 136 mmol/L (136-145)
== END 2021-06-27 18:00 | disposition home or self-care (01) ==
LOC: HHLAB 15:17
PROVIDERS: PCP Internal Medicine; Visit Provider Internal Medicine
DX: I50.9 Heart failure, unspecified (principal); J96.01 Acute respiratory failure with hypoxia; J96.02 Acute respiratory failure with hypercapnia; J84.9 Interstitial pulmonary disease, unspecified
CPT/HCPCS: 80048

== ENCOUNTER 2021-08-22 15:12 | Outpatient (RCR) | payer OTHER, SELFPAY ==
[2021-08-22 15:52] LABS: Hematocrit 32.9 % (37-47); Hemoglobin 9.7 g/dL (12.0-15.0); Mean Corp Hgb Conc 29.5 g/dL (32-36); Mean Corpuscular Hgb 31.2 pg (27.0-32.0); Mean Corpuscular Volume 105.8 fL (81-99); Platelet Count 137 K/mm3 (150-450); RBC Distribution Width CV 14.2 % (11.6-14.6); RBC Distribution Width SD 54.4 fl (35.1-43.9); Red Blood Count 3.11 M/mm3 (4.2-5.4); White Blood Count 6.9 K/mm3 (4.4-11.0)
[2021-08-22 16:17] LABS: ALB/GLOB Ratio 0.8 RATIO (0.9-2.4); AST(SGOT) 20 U/L (15-37); Alanine Aminotransfer ALT/SGPT 16 U/L (13-56); Albumin, Serum 3.6 g/dL (3.2-5.0); Alkaline Phosphatase 73 U/L (45-117); Anion Gap 4 (5-15); BUN 17 mg/dL (7-18); Calcium,Total 9.5 mg/dL (8.5-10.1); Chloride 95 mmol/L (98-107); Cholesterol 168 mg/dL (200); Creatinine, Serum 0.81 mg/dL (0.55-1.02); EST Glomerular Filtration Rate 76 mL/min (>60); Est Glom Filt Rate - Afr Amer 92 mL/min (>60); Globulin 4.3 g/dL (2.2-4.2); Glucose 156 mg/dL (74-106); High Density Lipoprotein 35 mg/dL; Potassium 4.5 mmol/L (3.5-5.1); Protein, Total 7.9 g/dL (6.4-8.2); Sodium Level 136 mmol/L (136-145); Triglycerides 125 mg/dL; Very Low Density Lipoprotein 25 mg/dL (5-40)
[2021-08-22 16:24] LABS: Hemoglobin A1c 5.3 % (3.8-5.6)
== END 2021-09-15 22:01 | disposition home or self-care (01) ==
LOC: HHLAB 15:12
PROVIDERS: PCP Internal Medicine; Visit Provider Internal Medicine
DX: E11.42 Type 2 diabetes mellitus with diabetic polyneuropathy (principal); J84.9 Interstitial pulmonary disease, unspecified; J96.02 Acute respiratory failure with hypercapnia; J96.01 Acute respiratory failure with hypoxia; Z79.899 Other long term (current) drug therapy; I50.9 Heart failure, unspecified
CPT/HCPCS: 80053; 80061; 83036; 85027

== ENCOUNTER → 2021-08-27 | Outpatient (CLI) | payer OTHER, SELFPAY ==
--- NOTE | 2021-08-27 08:23 | RAD_ITS ---
EXAM: XR LEFT FOOT COMPLETE, 3 OR MORE VIEWS CLINICAL INDICATION: GREAT TOE PAIN TECHNIQUE: Frontal, lateral and oblique views of the left foot. This report was created using [employer] report generation technology. COMPARISON: 02/02/2021 FINDINGS: BONES/JOINTS: Unremarkable. No acute fracture. No subluxation. Normal alignment. Preservation of the joint space. No sclerotic or destructive changes observed. SOFT TISSUES: There is soft tissue swelling over the dorsum of the foot. No radiopaque foreign body. RAD/Foot min 3 Views IMPRESSION: Soft tissue swelling with no osseous abnormalities. Electronically Signed: Nathan West MD at 10:46 EDT ,
--- NOTE | 2021-08-27 08:23 | RAD_ITS ---
EXAM: XR RIGHT FOOT COMPLETE, 3 OR MORE VIEWS CLINICAL INDICATION: G REAT TOE PAIN TECHNIQUE: Frontal, lateral and oblique views of the right foot. This report was created using [employer] report generation technology. COMPARISON: None. FINDINGS: BONES/JOINTS: Unremarkable. No acute fracture. No subluxation. Normal alignment. Preservation of the joint space. No sclerotic or destructive changes observed. SOFT TISSUES: There is soft tissue swelling over the dorsum of the foot. No radiopaque foreign body. RAD/Foot min 3 Views IMPRESSION: Soft tissue swelling with no osseous abnormality. Electronically Signed: Nathan West MD at 10:46 EDT ,
--- NOTE | 2021-08-28 09:14 | PFT ---
INTRODUCTION: The patient is a 61-year-old female that presents for pulmonary function studies secondary to a diagnosis of dyspnea. Respiratory therapy reported that the patient was unable to get out of her wheelchair so body plethysmography was unable to be performed. Bronchodilators were used during testing. INTERPRETATION: Forced expiration spirometry demonstrates no evidence of a large airways obstructive ventilatory defect. FVC is significantly reduced at 38% of predicted, which is certainly suggestive of an underlying restrictive ventilatory impairment. However, lung volumes would be required to confirm. Spirograms are of good quality and plateau normally. Diffusing capacity by single breath CO is reduced at 39% of predicted. IMPRESSION: Spirometry is suggestive of a restrictive impairment. However, lung volumes would be required to confirm this assertion. Diffusing capacity is significantly reduced.
== END | disposition home or self-care (01) ==
LOC: PSN 06:52 → RAD 08:21
PROVIDERS: PCP Internal Medicine; Referring Provider Internal Medicine; Visit Provider Internal Medicine
DX: M79.674 Pain in right toe(s) (principal); M79.675 Pain in left toe(s)
CPT/HCPCS: 73630; 94060; 94729

== ENCOUNTER 2021-09-26 17:53 | Outpatient (RCR) | payer OTHER, SELFPAY ==
[2021-09-26 18:14] LABS: Hematocrit 31.9 % (37-47); Hemoglobin 9.2 g/dL (12.0-15.0); Mean Corp Hgb Conc 28.8 g/dL (32-36); Mean Corpuscular Hgb 31.7 pg (27.0-32.0); Mean Platelet Vol. 12.1 fl (6.2-12.0); Platelet Count 127 K/mm3 (150-450); RBC Distribution Width CV 14.6 % (11.6-14.6); RBC Distribution Width SD 58.5 fl (35.1-43.9); White Blood Count 6.3 K/mm3 (4.4-11.0)
[2021-09-26 18:32] LABS: ALB/GLOB Ratio 0.9 RATIO (0.9-2.4); AST(SGOT) 19 U/L (15-37); Alanine Aminotransfer ALT/SGPT 21 U/L (13-56); Albumin, Serum 3.8 g/dL (3.2-5.0); Alkaline Phosphatase 74 U/L (45-117); Anion Gap 4 (5-15); BUN 14 mg/dL (7-18); BUN/Creat Ratio 17.5 RATIO (10-20); Calcium,Total 9.5 mg/dL (8.5-10.1); Chloride 95 mmol/L (98-107); Cholesterol 166 mg/dL (200); EST Glomerular Filtration Rate 77 mL/min (>60); Est Glom Filt Rate - Afr Amer 93 mL/min (>60); Globulin 4.3 g/dL (2.2-4.2); Glucose 108 mg/dL (74-106); High Density Lipoprotein 34 mg/dL; Protein, Total 8.1 g/dL (6.4-8.2); Sodium Level 140 mmol/L (136-145); Triglycerides 169 mg/dL; Very Low Density Lipoprotein 34 mg/dL (5-40)
[2021-09-26 19:48] LABS: Hemoglobin A1c 5.2 % (3.8-5.6)
== END 2021-09-26 18:00 | disposition home or self-care (01) ==
LOC: HHLAB 17:53
PROVIDERS: PCP Internal Medicine; Visit Provider Internal Medicine
DX: E11.42 Type 2 diabetes mellitus with diabetic polyneuropathy (principal); Z79.899 Other long term (current) drug therapy
CPT/HCPCS: 80053; 80061; 83036; 85027

== ENCOUNTER 2021-10-11 22:52 | Observation (INO) | payer OTHER, SELFPAY ==
--- NOTE | 2021-10-11 | RAD_ITS ---
STUDY: X-RAY CHEST REASON FOR EXAM: Female, 61 years old. cough TECHNIQUE: AP portable. 11:59 PM. COMPARISON: 05/17/2021. FINDINGS: LUNGS: Diffuse bilateral infiltrates greater on the right. Small right pleural effusion. No pneumothorax. MEDIASTINUM: Soft tissue fullness right paratracheal right hilar region unchanged compared to priors, presumed adenopathy. CARDIAC SILHOUETTE: Enlarged. Stable size and configuration. BONES AND SOFT TISSUES: No acute abnormalities. RAD/Chest 1 View (Portable) IMPRESSION: Bilateral infiltrates and small right pleural effusion pneumonia versus pulmonary edema/CHF. Electronically Signed: Danielle Recinos MD at 0:37 EDT ,
[2021-10-11 22:56] VITALS: BP 126/54; PULSE 75; RESP 20; TEMP 36.7; O2SAT 100; BMI 56.6
[2021-10-11 23:00] VITALS: O2SAT 100
--- NOTE | 2021-10-11 23:28 | EKG12_ITS ---
Test Reason : SOB Blood Pressure : / mmHG Vent. Rate : 077 BPM Atrial Rate : 077 BPM P-R Int : 162 ms QRS Dur : 110 ms QT Int : 406 ms P-R-T Axes : 066 -54 028 degrees QTc Int : 459 ms Normal sinus rhythm Left axis deviation Low voltage QRS Possible Anterolateral infarct , age undetermined Abnormal ECG Confirmed by NOE RIZO, KLARISSA ([id number]), editor at large BOBBI NEVAREZ ([id number]) on 10/15/2021 9:32:04 AM Referred By: Confirmed By:VENESSA LIU MD
--- NOTE | 2021-10-11 23:29 | EDS_ITS ---
HPI History of Present Illness Chief Complaint: Shortness of Breath Informant: patient and family Narrative Narrative: Presenting by EMS from home here with children 1 week history of productive cough. Reported last couple days increasing confusion. History of sleep apnea, had pneumonia back in September. Had COVID pneumonia this past January ended up back on oxygen since then. Was on 3 L has progressed up to 4 L. Also had pneumonia this past April with hypercapnia. She is followed by Dr. Huitron. She does wear CPAP however states a week ago stopped working per son pulse ox was in the 80s while she is on it however on nasal cannula it would improve. Reported company came out however just gave her a new mask he did not check the machine. They have not used the CPAP for the past week. Per son has been up to the bathroom about 6 times urinating. States she is not sleeping well. Reported her CO2 typically be around 25 was told is okay up to 31. A week ago had outpatient labs reported to me that her blood work CO2 was 41. Reported has had 2 COVID test at home that is a negative last time was 2 days ago. Prior similar symptoms: Yes PFSH PFSH Medical History Acute hypoxemic respiratory failure Anemia Anxiety Cancer Congestive heart failure (CHF) COVID-19 Diabetes DVT (deep venous thrombosis) GERD (gastroesophageal reflux disease) History of diabetes mellitus History of morbid obesity Hypertension Hypothyroidism Hypoxia Non-smoker On home oxygen therapy Pneumonia due to COVID-19 virus Pneumonitis Home Medications ibuprofen 600 mg tablet 600 mg PO Q6H PRN PRN Pain #30 TABLETS 07/15/13 [Rx Last Taken Unknown] metoprolol tartrate 25 mg tablet 25 mg PO BID heart rate 07/15/13 [History Last Taken 05/17/21] multivitamin with folic acid 400 mcg tablet (Thera) 1 tab PO DAILY vitamin 07/15/13 [History Last Taken 05/16/21] potassium chloride 20 mEq tablet,extended release(part/cryst) (Klor-Con M) 20 meq PO DAILY supplement 07/15/13 [History Last Taken 05/16/21] spironolactone 25 mg tablet 25 mg PO DAILY diuretic 07/15/13 [History Last Taken 05/17/21] albuterol sulfate 2.5 mg/3 mL (0.083 %) solution for nebulization 2.5 mg inhalation Q4H PRN SOB 05/17/21 [History Last Taken 05/16/21] ammonium lactate 12 % lotion 1 ea topical DAILY apply to legs 05/17/21 [History Last Taken 05/15/21] benzonatate 100 mg capsule 100 mg PO TID PRN Cough 05/17/21 [History Last Taken 05/15/21] dulaglutide 0.75 mg/0.5 mL subcutaneous pen injector (Trulicity) 0.75 mg subcut DAWN DM 05/17/21 [History Last Taken 05/13/21] exemestane 25 mg tablet 25 mg PO DAILY hormone 05/17/21 [History Last Taken 05/17/21] fluticasone propionate 50 mcg/actuation nasal spray,suspension 2 spray intranasal DAILY allergies 05/17/21 [History Last Taken 05/17/21] gabapentin 300 mg capsule 1,200 mg PO BID DM 05/17/21 [History Last Taken 05/17/21] hydroxyzine HCl 25 mg tablet 25 mg PO DAILY PRN itching 05/17/21 [History Last Taken Unknown] levothyroxine 200 mcg tablet (Euthyrox) 200 mcg PO DAILY thyroid 05/17/21 [History Last Taken 05/16/21] metformin 500 mg tablet 1,000 mg PO BID DM 05/17/21 [History Last Taken 05/17/21] metoclopramide HCl 10 mg tablet 10 mg PO Q6H PRN GERD 05/17/21 [History Last Taken 05/17/21] furosemide 40 mg tablet 60 mg PO BIDLX 30 days #90 tabs 05/21/21 [Rx Last Taken Unknown] ofloxacin 0.3 % eye drops 1 drp ophthalmic (eye) BID 09/04/21 [History Last Taken Unknown] Allergy/AdvReac Type Severity Reaction Status Date / Time diphenhydramine HCl Allergy HEART Verified 09/04/21 11:10 [From Benadryl] RACES levofloxacin [From Levaquin] Allergy HEART Verified 09/04/21 11:10 RACE AND FEELS SOB oxytocin [From Pitocin] AdvReac FLOATING Verified 09/04/21 11:10 FEELING ENVIROMENTAL AdvReac Other Uncoded 09/04/21 11:10 Family History Other Diabetes Surgical History History of reduction surgery of left breast Social History Smoking Status: Never smoker ROS ROS ED Constitutional Constitutional ED: Denies chills, fever(s) or sweats Eyes Eyes: Denies change in vision ENT ENT ED: Denies dysphagia or sore throat Cardiovascular Cardiovascular: Denies chest pain, leg edema, palpitations or racing heartbeat Respiratory/Chest Respiratory/Chest: Reports cough and dyspnea; Denies dyspnea on exertion Gastrointestinal Gastrointestinal: Denies abdominal pain, diarrhea, nausea or vomiting Genitourinary Genitourinary ED: Denies dysuria, hematuria or urinary frequency Musculoskeletal Musculoskeletal: Denies back pain, extremity pain or neck pain Integumentary Denies rash or wounds Neurologic Neurologic: Denies headache(s), paresthesias or weakness EXAM Physical Exam Const Vital Signs: 10/11/21 22:56 10/11/21 23:00 10/11/21 23:57 Temperature 98.0 F Temperature Source Oral Pulse Rate 75 Respiratory Rate 20 H Respiratory Effort Short of Breath Respiratory Depth Normal Respiratory Pattern Normal Blood Pressure 126/54 H Blood Pressure Mean 78 Pulse Ox 100 Oxygen Delivery Method Nasal Cannula Nasal Cannula Room Air Oxygen Flow Rate (L/min) 4 4 4 Fraction of Inspired Oxygen (FIO2) 10/12/21 00:07 10/12/21 00:42 10/12/21 00:56 Temperature 97.8 F Temperature Source Temporal Pulse Rate 79 76 Respiratory Rate 23 H 23 H Respiratory Effort Respiratory Depth Respiratory Pattern Blood Pressure 125/58 H Blood Pressure Mean 80 Pulse Ox 97 98 Oxygen Delivery Method Bi-pap Oxygen Flow Rate (L/min) Fraction of Inspired Oxygen (FIO2) 25 40 40 10/12/21 00:56 Temperature Temperature Source Pulse Rate 76 Respiratory Rate 23 H Respiratory Effort Respiratory Depth Respiratory Pattern Blood Pressure 125/58 H Blood Pressure Mean 80 Pulse Ox 98 Oxygen Delivery Method Bi-pap Oxygen Flow Rate (L/min) Fraction of Inspired Oxygen (FIO2) 40 Positive well nourished Constitutional Narrative: Slightly somnolent arousable awakens and answering questions appropriately. No respiratory distress on 4 L nasal cannula. General Appearance ED: NAD HEENT Reports moist mucous membranes normocephalic and atraumatic Eyes PERRL, EOMs intact bilaterally and conjunctivae normal General Eye ED: Yes normal appearance of both eyes Neck no lymphadenopathy and supple General: Negative for tenderness Chest Wall Chest: Negative for tenderness Resp normal respiratory effort and normal air movement Effort and Inspection: symmetric chest movement; Negative for respiratory distress Cardio regular rate, regular rhythm and no murmurs Peripheral Pulses: pulses 2+ throughout GI normal to inspection, nondistended, normoactive bowel sounds and non-tender Palpation: Negative for guarding or rebound tenderness present Back/Spine no CVA tenderness and no thoracic nor lumbar tenderness Extremity normal to inspection General Extremety ED: Negative for edema or tenderness General Extremity: Negative for edema Neuro oriented x3 and no sensory deficits noted Sensorium / Orientation: awake and alert Skin Skin Narrative: Erythema bilateral lower legs, nontender. MDM MDM MDM Narrative Medical decision making narrative: Patient was somnolent no respiratory distress. Blood gas ordered pH 7.2 a PCO2 was 93. BiPAP ordered respiratory placed her on the BiPAP. Chest x-ray 1 view reviewed by myself initially concerns for bilateral pneumonia right greater than left, with less significant than her previous chest x-ray back in April with her last admission. She is clinical productive sputum therefore more concerns for pneumonia. Labs White count 6.1 hemoglobin 8.4 stable from previous. Creatinine 0.81. Urine negative. She is stable on the BiPAP vitals remained stable. Rocephin Zithromax for coverage of community-acquired pneumonia. COVID test returned negative. Discussed with hospitalist Dr. Tan for admission. She stable for PCU. Lab Data Attestation: I reviewed the patient's lab results. Labs: Laboratory Results - last 24 hr 10/11/21 10/11/21 10/12/21 23:54 23:54 00:30 WBC 6.1 RBC 2.72 L Hgb 8.4 L Hct 29.9 L MCV 109.9 H MCH 30.9 MCHC 28.1 L RDW Std Deviation 61.1 H RDW Coeff of Dnaielle 15.2 H Plt Count 118 L MPV 11.5 Immature Gran % (Auto) 1.500 H Neut % (Auto) 71.1 H Lymph % (Auto) 14.5 L Otero % (Auto) 10.1 H Eos % (Auto) 2.3 Baso % (Auto) 0.5 Absolute Neuts (auto) 4.3 Absolute Lymphs (auto) 0.88 Nucleated RBC % 0 Sodium 142 Potassium 4.4 Chloride 97 L Carbon Dioxide 45.0 H Anion Gap 0 L BUN 12 Creatinine 0.81 Estim Creat Clear Calc 76.87 Est GFR (MDRD) Af Amer 92 Est GFR (MDRD) Non-Af 76 BUN/Creatinine Ratio 14.9 Glucose 141 H Calcium 8.7 Total Bilirubin 0.60 AST 24 ALT 18 Alkaline Phosphatase 66 Troponin I High Sens 8 Total Protein 7.7 Albumin 3.5 Globulin 4.2 Albumin/Globulin Ratio 0.8 L Urine Color Yellow Urine Clarity Clear Urine pH 5.0 Ur Specific [place] 1.020 Urine Protein 15 H Urine Glucose (UA) Normal Urine Ketones Negative Urine Occult Blood Negative Urine Nitrite Negative Urine Bilirubin Negative Urine Urobilinogen 4 H Ur Leukocyte Esterase Negative Urine RBC 0 SEEN Urine WBC 0 SEEN Ur Squamous Epith Cells 0-5 SEEN Urine Bacteria RARE Hyaline Casts 10-25 SEEN Urine Mucus 1+ ABG Data ABG results: ABG 10/11/21 23:48 Specimen Type ART Sample Site L Radial pH 7.28 L Bicarbonate Actual 44.4 H Total CO2 47 Base Excess 18 H O2 Saturation 99 ABG pCO2 93.8 H* ABG pO2 162 H Test Positive O2 Delivery Device Cannula Liter Flow 4.0 Crit Call To/Read Back Yes Blood Gas Notified Whom LE Radiography Diagnostic Testing: Clinical Impression(s) from Imaging Studies Chest X-Ray 10/11/21 00:00 IMPRESSION: Bilateral infiltrates and small right pleural effusion pneumonia versus pulmonary edema/CHF. Electronically Signed: Danielle Recinos MD at 0:37 EDT , EKG Initial EKG: Attestation: I personally reviewed and interpreted this EKG as follows: Comments: Sinus rate 77, no ST changes. Interventricular delay. Critical Care Time Critical Care Time: Yes Critical care time (excluding procedures): 30-74 minutes, Discussing w/Patient &/or Family/Senior C Software Developer, Discussing w/Consultants, Arranging Admission or Transfer, Performing Direct Patient Care at Bedside and - (40 minutes) Discharge Plan Triage Chief Complaint: Shortness of Breath ED Provider: Neville Palencia Dx/Rx/DC Orders Clinical Impression: Hypercarbia, DONA (obstructive sleep apnea), Encephalopathy acute, Pneumonia, Acute hypercapnic respiratory failure Primary Care Provider: Lidya Mathias Disposition Disposition: Acute Care Hospital [facility]
[2021-10-12] VITALS (14 sets, daily range): BP systolic 125–150; BP diastolic 58–70; PULSE 68–82; RESP 14–23; TEMP 36.6–36.7; O2SAT 94–98; BMI 51.9
[2021-10-12 00:01] LABS: Allen Test Positive; Base Excess 18 mmol/L (-2 to +2); Bicarbonate 44.4 mmol/L (22-26); Blood Gas Specimen Type ART; O2 Delivery Device Cannula; PO2 162 mmHG (75-100); SITE L Radial; SO2 99 % (95-99); Total Carbon Dioxide 47 mmol/L; pCO2 93.8 mmHg (35-45); pH 7.28 (7.35-7.45)
[2021-10-12 00:29] LABS: ALB/GLOB Ratio 0.8 RATIO (0.9-2.4); AST(SGOT) 24 U/L (15-37); Alanine Aminotransfer ALT/SGPT 18 U/L (13-56); Albumin, Serum 3.5 g/dL (3.2-5.0); Alkaline Phosphatase 66 U/L (45-117); Anion Gap 0 (5-15); BUN 12 mg/dL (7-18); BUN/Creat Ratio 14.9 RATIO (10-20); Calcium,Total 8.7 mg/dL (8.5-10.1); Chloride 97 mmol/L (98-107); Creatinine, Serum 0.81 mg/dL (0.55-1.02); EST Glomerular Filtration Rate 76 mL/min (>60); Est Glom Filt Rate - Afr Amer 92 mL/min (>60); Estimated Creatinine Clearance 76.87 ml/min; Globulin 4.2 g/dL (2.2-4.2); Glucose 141 mg/dL (74-106); Potassium 4.4 mmol/L (3.5-5.1); Protein, Total 7.7 g/dL (6.4-8.2); Sodium Level 142 mmol/L (136-145); Troponin-I HS 8 pg/mL (3.0-54.0)
[2021-10-12 00:30] LABS: Absolute Lymphocyte Count 0.88 X10^3/uL (0.83-4.51); Absolute Neutrophil Count 4.3 X10^3/uL (2.0-7.7); Basophil# 0.03 X10^3/uL; Basophil% 0.5 % (0-1); Eosinophil# 0.14 X10^3/uL; Eosinophils% 2.3 % (0-5); Hematocrit 29.9 % (37-47); Hemoglobin 8.4 g/dL (12.0-15.0); Lymphocyte # 0.88 X10^3/ul (0.83-4.51); Lymphocyte % 14.5 % (19-41); Mean Corp Hgb Conc 28.1 g/dL (32-36); Mean Corpuscular Hgb 30.9 pg (27.0-32.0); Mean Corpuscular Volume 109.9 fL (81-99); Mean Platelet Vol. 11.5 fl (6.2-12.0); Monocyte# 0.61 X10^3/uL; Monocyte% 10.1 % (0-10); NRBC Flagged by Analyzer 0 % (0-5); Neutrophil % 71.1 % (47-70); Platelet Count 118 K/mm3 (150-450); RBC Distribution Width CV 15.2 % (11.6-14.6); RBC Distribution Width SD 61.1 fl (35.1-43.9); Red Blood Count 2.72 M/mm3 (4.2-5.4); White Blood Count 6.1 K/mm3 (4.4-11.0)
[2021-10-12 00:34] LABS: Red Blood Cells-Urine 0 SEEN /hpf (0-5); White Blood Cells 0 SEEN /hpf (0-5)
[2021-10-12 00:39] LABS: Color, Urine Yellow (Yellow); Glucose, Dipstick Normal (Normal); Ketone-Dipstick Negative (Negative); Leukocyte Esterase-Dipstick Negative /ul (Negative); Nitrite-Dipstick Negative (Negative); Occult Blood-Urine Negative /ul (Negative); Protein-Dipstick 15 mg/dl (Negative); Urine Bilirubin Dipstick Negative (Negative); Urine Clarity Clear (Clear); Urine Urobilinogen 4 mg/dl (Normal)
[2021-10-12] MEDS: Ceftriaxone 1 GM/50 ML BAG IV (00:53)
[2021-10-12 00:55] LABS: Bacteria RARE /hpf (None Seen); Hyaline Cast 10-25 SEEN /lpf (0-5); Mucous, Urine 1+ /hpf (<or=2+); Squamous Epithelial Cells - UA 0-5 SEEN /hpf (5-10)
--- NOTE | 2021-10-12 00:59 | PCM.HP.STD ---
HPI - General General Date of Admission: 10/12/21 Date of Service: 10/12/21 Chief Complaint: Dyspnea, cough, confusion. HPI Narrative The patient is a 61 y/o F w/ PMHx: Morbid Obesity, HTN, HLD, DONA on CPAP q HS, Chronic macrocytic anemia, Hx VTE, Hypothyroidism, Hx Severe COVID-19 illness with PNA w/ respiratory failure with continued chronic hypoxic respiratory failure since on 3L NC following w/ Dr. Huitron, Diabetes mellitus type II, GERD, Chronic Diastolic CHF who presents to the [facility] ED on 10/12/21 with history of ~ 1 week of progressive worsening fatigue, malaise, dyspnea, productive cough with chills without specific fevers, not improving with notable increased lethargy and confusion onset on evening prior to ED presentation prompting family to bring her for evaluation. They report that recently she has only been using oxygen at night as her home CPAP machine has not been working. Patient denies any specific recent weight gain or marked orthopnea or worsened edema above her baseline. From discussion with patient and family she does seem to be improving and is able to have discussion but has been on BiPAP for some time therefore expect her to continue to improve. She and family note that she did have some issues when she was young and had partial collapse of the lung with intermittent pneumonia through the years following. She reports that she has not had an updated pneumonia vaccination and is interested work-up in the ED included T 98, heart rate 75, BP 126/54, respiratory rate 20, 100% on 4 L nasal cannula eventually transitioned to BiPAP, CBC with WC 6.1, hemoglobin 8.4, MCV 109.9, platelet 118 with increased immature granulocytes, ABG with pH 7.28, bicarb 44.4, base excess 18, O2 saturation 99%, PCO2 93.8, PO2 162 performed on 4 L nasal cannula, CMP with chloride 97, carbon oxide 45, glucose 141 otherwise. Profile not marked appearing, troponin 8, urinalysis with elevated specific remedy 1.020, no evidence of UTI, chest x-ray with bilateral infiltrates and small right pleural effusion secondary to pneumonia versus possibility pulmonary edema/CHF, rapid COVID antigen negative. In the ED patient ministered Rocephin and azithromycin. [facility] Medical History (Updated 10/12/21 @ 02:[address] Niecy Tan MD) Anemia Anxiety Chronic respiratory failure with hypoxia COVID-19 Diabetes mellitus, type 2 DVT (deep venous thrombosis) GERD (gastroesophageal reflux disease) History of breast cancer Hypertension Hypothyroidism Morbid obesity DONA (obstructive sleep apnea) Restrictive lung disease Home Medications ibuprofen 600 mg tablet 600 mg PO Q6H PRN PRN Pain #30 TABLETS 07/15/13 [Rx Last Taken Unknown] metoprolol tartrate 25 mg tablet 25 mg PO BID heart rate 07/15/13 [History Last Taken 05/17/21] multivitamin with folic acid 400 mcg tablet (Thera) 1 tab PO DAILY vitamin 07/15/13 [History Last Taken 05/16/21] potassium chloride 20 mEq tablet,extended release(part/cryst) (Klor-Con M) 20 meq PO DAILY supplement 07/15/13 [History Last Taken 05/16/21] spironolactone 25 mg tablet 25 mg PO DAILY diuretic 07/15/13 [History Last Taken 05/17/21] albuterol sulfate 2.5 mg/3 mL (0.083 %) solution for nebulization 2.5 mg inhalation Q4H PRN SOB 05/17/21 [History Last Taken 05/16/21] ammonium lactate 12 % lotion 1 ea topical DAILY apply to legs 05/17/21 [History Last Taken 05/15/21] benzonatate 100 mg capsule 100 mg PO TID PRN Cough 05/17/21 [History Last Taken 05/15/21] dulaglutide 0.75 mg/0.5 mL subcutaneous pen injector (Trulicity) 0.75 mg subcut DAWN DM 05/17/21 [History Last Taken 05/13/21] exemestane 25 mg tablet 25 mg PO DAILY hormone 05/17/21 [History Last Taken 05/17/21] fluticasone propionate 50 mcg/actuation nasal spray,suspension 2 spray intranasal DAILY allergies 05/17/21 [History Last Taken 05/17/21] gabapentin 300 mg capsule 1,200 mg PO BID DM 05/17/21 [History Last Taken 05/17/21] hydroxyzine HCl 25 mg tablet 25 mg PO DAILY PRN itching 05/17/21 [History Last Taken Unknown] levothyroxine 200 mcg tablet (Euthyrox) 200 mcg PO DAILY thyroid 05/17/21 [History Last Taken 05/16/21] metformin 500 mg tablet 1,000 mg PO BID DM 05/17/21 [History Last Taken 05/17/21] metoclopramide HCl 10 mg tablet 10 mg PO Q6H PRN GERD 05/17/21 [History Last Taken 05/17/21] furosemide 40 mg tablet 60 mg PO BIDLX 30 days #90 tabs 05/21/21 [Rx Last Taken Unknown] ofloxacin 0.3 % eye drops 1 drp ophthalmic (eye) BID 09/04/21 [History Last Taken Unknown] Allergy/AdvReac Type Severity Reaction Status Date / Time diphenhydramine HCl Allergy HEART Verified 09/04/21 11:10 [From Benadryl] RACES levofloxacin [From Levaquin] Allergy HEART Verified 09/04/21 11:10 RACE AND FEELS SOB oxytocin [From Pitocin] AdvReac FLOATING Verified 09/04/21 11:10 FEELING ENVIROMENTAL AdvReac Other Uncoded 09/04/21 11:10 Family History (Updated 10/12/21 @ 02:[address] Niecy Tan MD) Father Diabetes COPD (chronic obstructive pulmonary disease) Glioblastoma Mother COPD (chronic obstructive pulmonary disease) Surgical History (Updated 10/12/21 @ 02:[address] Niecy Tan MD) History of breast reconstruction History of reduction surgery of left breast History of right mastectomy Social History (Updated 10/12/21 @ 02:[address] Niecy Tan MD) household members: family Smoking Status: Never smoker alcohol intake: never substance use type: does not use ROS ROS Narrative Admission Review of Systems: CONSTITUTIONAL: No weight loss, fever, + chills, weakness or fatigue. HEENT: Eyes: No visual loss, blurred vision, double vision or yellow sclerae. Ears, Nose, Throat: No hearing loss, sneezing, congestion, runny nose or sore throat. SKIN: No rash or itching, lesions, wounds. CARDIOVASCULAR: + Edema chronically, no increase. No chest pain, chest pressure or chest discomfort, palpitations, orthopnea, syncopal events. RESPIRATORY: + shortness of breath, cough with productive sputum, No wheezing, hemoptysis. GASTROINTESTINAL: + anorexia, No nausea, vomiting or diarrhea, abdominal pain, melena, BRBPR. GENITOURINARY: No dysuria, frequency, urgency or retention. NEUROLOGICAL: No headache, dizziness, syncope, paralysis, ataxia, numbness or tingling in the extremities, focal weakness, change in bowel or bladder control, seizure. MUSCULOSKELETAL: + muscle, back pain, joint pain or stiffness. HEMATOLOGIC: + anemia, bleeding or bruising. LYMPHATICS: No enlarged nodes. No history of splenectomy. PSYCHIATRIC: + history of depression or anxiety. ENDOCRINOLOGIC: No reports of sweating, cold or heat intolerance. No polyuria or polydipsia. ALLERGIES: No history of asthma, hives, eczema or rhinitis. Vital Signs Vital Signs Vital Signs: 10/11/21 22:56 10/11/21 23:00 10/11/21 23:57 Temperature 98.0 F Temperature Source Oral Pulse Rate 75 Respiratory Rate 20 H Respiratory Effort Short of Breath Respiratory Depth Normal Respiratory Pattern Normal Blood Pressure 126/54 H Blood Pressure Mean 78 Pulse Ox 100 Oxygen Delivery Method Nasal Cannula Nasal Cannula Room Air Oxygen Flow Rate (L/min) 4 4 4 Fraction of Inspired Oxygen (FIO2) 10/12/21 00:07 10/12/21 00:42 Temperature Temperature Source Pulse Rate 79 Respiratory Rate 23 H Respiratory Effort Respiratory Depth Respiratory Pattern Blood Pressure Blood Pressure Mean Pulse Ox 97 Oxygen Delivery Method Oxygen Flow Rate (L/min) Fraction of Inspired Oxygen (FIO2) 25 40 Weight Weight: 394 lb 9.6 oz Body Mass Index (BMI) 56.6 Physical Exam Narrative Physical Examination: General: Patient improving, awakens to stimuli, alert with some questioning, oriented to self, place and recent events, BiPAP in place, notes feeling improved since initial ED presentation. Skin: Normal color, normal turgor, no icterus, no cyanosis except notable bilateral lower extremity stasis and chronic lymphedematous changes. HEENT: AT/NC, EOMI, PERRLA, mildly dry MM, no carotid bruits or JVD noted; however, difficult exam secondary to thickened neck and BiPAP also in place with referred sound. Lungs: Significantly diminished, greater bases, mildly rhonchorous, mildly increased respiratory rate but no evidence of distress, BiPAP in place, mental status improving, no rales or wheezing noted. Heart: Regular rate and rhythm; no gallop, rub audible. Abdomen: Soft, morbidly obese, NTTP, ND, distant normal BS, no obvious HSM however habitus makes evaluation difficult. Extremities: No cyanosis, no clubbing, see skin, chronic lymphedema unchanged. Neurological: Patient improving, awakens to stimuli, alert with some questioning, oriented to self, place and recent events, BiPAP in place, notes feeling improved since initial ED presentation, cognitive function improving, suspect nearing baseline intact; pupils equally reactive to light and accommodation, cranial nerves II-XII grossly normal, moving all 4 extremities, no focal deficits, strength severely global decrease secondary to acute presentation. Psychiatric: Affect appears fatigued, lethargy is lessening, no acute evidence of depressive or anxiety feelings but does have underlying history. Results Lab / Micro Data Result Diagrams: 10/11/21 23:54 10/11/21 23:54 Labs: Laboratory Results - last 24 hr 10/11/21 23:54: WBC 6.1, RBC 2.72 L, Hgb 8.4 L, Hct 29.9 L, MCV 109.9 H, MCH 30.9, MCHC 28.1 L, RDW Std Deviation 61.1 H, RDW Coeff of Danielle 15.2 H, Plt Count 118 L, MPV 11.5, Immature Gran % (Auto) 1.500 H, Neut % (Auto) 71.1 H, Lymph % (Auto) 14.5 L, [place] % (Auto) 10.1 H, Eos % (Auto) 2.3, Baso % (Auto) 0.5, Absolute Neuts (auto) 4.3, Absolute Lymphs (auto) 0.88, Nucleated RBC % 0 10/11/21 23:54: Sodium 142, Potassium 4.4, Chloride 97 L, Carbon Dioxide 45.0 H, Anion Gap 0 L, BUN 12, Creatinine 0.81, Estim Creat Clear Calc 76.87, Est GFR (MDRD) Af Amer 92, Est GFR (MDRD) Non-Af 76, BUN/Creatinine Ratio 14.9, Glucose 141 H, Calcium 8.7, Total Bilirubin 0.60, AST 24, ALT 18, Alkaline Phosphatase 66, Troponin I High Sens 8, Total Protein 7.7, Albumin 3.5, Globulin 4.2, Albumin/Globulin Ratio 0.8 L 10/12/21 00:30: Urine Color Yellow, Urine Clarity Clear, Urine pH 5.0, Ur Specific [place] 1.020, Urine Protein 15 H, Urine Glucose (UA) Normal, Urine Ketones Negative, Urine Occult Blood Negative, Urine Nitrite Negative, Urine Bilirubin Negative, Urine Urobilinogen 4 H, Ur Leukocyte Esterase Negative, Urine RBC 0 SEEN, Urine WBC 0 SEEN, Ur Squamous Epith Cells 0-5 SEEN, Urine Bacteria RARE, Hyaline Casts 10-25 SEEN, Urine Mucus 1+ Micro: Microbiology 10/11/21 23:50 Nasal Secretion SARS-CoV-2 Antigen (Rapid) - Final ABG Data ABG results: ABG 10/11/21 23:48 Specimen Type ART Sample Site L Radial pH 7.28 L Bicarbonate Actual 44.4 H Total CO2 47 Base Excess 18 H O2 Saturation 99 ABG pCO2 93.8 H* ABG pO2 162 H Test Positive O2 Delivery Device Cannula Liter Flow 4.0 Crit Call To/Read Back Yes Blood Gas Notified Whom LE Radiology Impression Chest X-Ray 10/11/21 00:00 IMPRESSION: Bilateral infiltrates and small right pleural effusion pneumonia versus pulmonary edema/CHF. Electronically Signed: Danielle Recinos MD at 0:37 EDT , Assessment & Plan Assessment/Plan (1) Encephalopathy acute: (2) Pneumonia: (3) Hypercarbia: PLAN: Plan The patient is a 61 y/o F w/ PMHx: Morbid Obesity, HTN, HLD, DONA on CPAP q HS, Chronic macrocytic anemia, Hx VTE, Hypothyroidism, Hx Severe COVID-19 illness with PNA w/ respiratory failure with continued chronic hypoxic respiratory failure since on 3L NC following w/ Dr. Huitron, Diabetes mellitus type II, GERD, Chronic Diastolic CHF who presents to the [facility] ED on 10/12/21 with history of ~ 1 week of progressive worsening fatigue, malaise, dyspnea, productive cough with chills without specific fevers, not improving with notable increased lethargy and confusion onset on evening prior to ED presentation prompting family to bring her for evaluation. #1. Acute Encephalopathy secondary to Acute Hypercapnia with Suspected BL Pneumonia, complicated by Underlying Restrictive Lung Disease s/p COVID-19 with Chronic Hypoxic Respiratory Failure: Will admit to PCU given usage of BiPAP, will continue BiPAP until clinically improved then transition to chronic home oxygen supplementation, continue ATC duonebs, PRN albuterol, maintained on IV Rocephin and Azithromycin given no recent hospitalizations and no marked sputum's noted on microbiology review, HOB, IS parameters w/ pending sputum cultures, respiratory viral panel and urine antigens. Bld cx x 2 obtained in the ED. To be cautious given underlying history BNP has been requested. Of note patient is interested in updating her pneumonia vaccination and follows with the [facility]. #2. Chronic diastolic CHF: 05/18/21 ECHO w/ grossly normal LV size, wall motion and systolic function, EF 65%, moderate to severe mitral annular calcification, extension mitral annular calcification into mitral valve leaflet, trivial MVI, trivial TVI, RVSP 60 mmHg, evidence of diastolic dysfunction. Patient currently denying any recent weight gain, increased edema or orthopnea. BNP and procalcitonin requested. We will continue aspirin, metoprolol, spironolactone, not on CHRISTIANO inhibitor or ARB or statin therapy, monitor I&Os, daily weights. #3. Diabetes mellitus type II with neuropathy: Hold oral home regimen, hold home Trulicity regimen, ADA diet, accu checks w/ ISS, continue home gabapentin regimen. #4. Chronic macrocytic anemia: Admission Hgb 8.4, baseline appears more recently low 9s, vitamin B12 and folic acid levels requested, continue to trend. #5. Chronic thrombocytopenia: Admission platelets 118, prior has primarily been 1 10-1 50, similar, will continue to trend. #6. Hypertension: Continue home regimen including metoprolol, Lasix, spironolactone with hold parameters as needed, PRN hydralazine. #7. Hyperlipidemia: Not on statin therapy, defer to outpatient. #8. Hypothyroidism: We will continue patient levothyroxine home regimen. #9. Morbid Obesity: Weight loss and lifestyle changes encouraged. #10. History of prior VTE: Not on any chronic regimen, chemoprophylaxis will be continued as noted. #11. Chronic bilateral lower extremity lymphedema: We will place not Christiano wraps, elevation, encouraged follow-up with wound care center to be fitted for compression. #12. DONA: We will need attaining on BiPAP, from discussion with family patient home machine has not been functioning appropriately therefore recommended that they discuss these items in a.m. with case management/social work as company will need to be contacted to assure that this is corrected prior to patient return home. #13. DVT prophylaxis: SCDs, Lovenox. #14. CODE status: Patient does not have healthcare power of contract attorney nor living will set up. Noted they can discuss these items with case management/social work for information on setting up. Discussed CODE status at length including difference between FULL code, DNR-CCA and DNR-CC status. Following discussions about the differences in these status, requested Full Code status. Advanced Care Planning Face to Face Time: 16 minutes. Charges/Coding Visit Charges Inpatient E&M: 58672 Init Hosp L3 Procedures Hospitalists Procedures: 80216 Advncd Care Plan 30 Min
[2021-10-12 02:56] LABS: BNP,B-Type NATRIURETIC PEPTIDE 77.6 pg/mL (0-100)
[2021-10-12 06:37] LABS: Absolute Lymphocyte Count 0.78 X10^3/uL (0.83-4.51); Absolute Neutrophil Count 4.2 X10^3/uL (2.0-7.7); Basophil# 0.03 X10^3/uL; Basophil% 0.5 % (0-1); Eosinophil# 0.11 X10^3/uL; Eosinophils% 1.9 % (0-5); Hematocrit 29.2 % (37-47); Hemoglobin 8.1 g/dL (12.0-15.0); Lymphocyte # 0.78 X10^3/ul (0.83-4.51); Lymphocyte % 13.7 % (19-41); Mean Corp Hgb Conc 27.7 g/dL (32-36); Mean Corpuscular Hgb 30.7 pg (27.0-32.0); Mean Corpuscular Volume 110.6 fL (81-99); Mean Platelet Vol. 11.7 fl (6.2-12.0); Monocyte# 0.51 X10^3/uL; Monocyte% 8.9 % (0-10); NRBC Flagged by Analyzer 0 % (0-5); Neutrophil # 4.24 X10^3/uL (2.7-7.7); Neutrophil % 74.5 % (47-70); Platelet Count 111 K/mm3 (150-450); RBC Distribution Width CV 15.1 % (11.6-14.6); RBC Distribution Width SD 61.6 fl (35.1-43.9); Red Blood Count 2.64 M/mm3 (4.2-5.4); White Blood Count 5.7 K/mm3 (4.4-11.0)
[2021-10-12] MEDS: Ipratropium/Albuterol Sulfate 3 ML AMPUL.NEB INHALATION ×2 (07:32→13:32)
[2021-10-12 07:58] LABS: ALB/GLOB Ratio 0.9 RATIO (0.9-2.4); AST(SGOT) 17 U/L (15-37); Alanine Aminotransfer ALT/SGPT 17 U/L (13-56); Albumin, Serum 3.5 g/dL (3.2-5.0); Alkaline Phosphatase 65 U/L (45-117); Anion Gap 2 (5-15); BUN 13 mg/dL (7-18); BUN/Creat Ratio 17.2 RATIO (10-20); Calcium,Total 8.8 mg/dL (8.5-10.1); Chloride 96 mmol/L (98-107); Creatinine, Serum 0.76 mg/dL (0.55-1.02); EST Glomerular Filtration Rate 82 mL/min (>60); Est Glom Filt Rate - Afr Amer 99 mL/min (>60); Estimated Creatinine Clearance 81.93 ml/min; Globulin 3.9 g/dL (2.2-4.2); Glucose 145 mg/dL (74-106); Protein, Total 7.4 g/dL (6.4-8.2); Sodium Level 142 mmol/L (136-145)
--- NOTE | 2021-10-12 08:20 | CPS ---
started by nursing
[2021-10-12 08:30] LABS: Bedside Glucose 143 mg/dL (74-106)
[2021-10-12] MEDS: Levothyroxine 100 MCG Tablet 200 MCG PO (09:01)
[2021-10-12] MEDS: Spironolactone 25 MG Tablet PO (09:31)
[2021-10-12] MEDS: Metoprolol Tartrate 25 MG Tablet PO (09:31)
[2021-10-12] MEDS: Furosemide 20 MG Tablet 60 MG PO (09:31)
[2021-10-12] MEDS: Enoxaparin 40 MG/0.4 ML Syringe SC (09:32)
[2021-10-12] MEDS: Fluticasone 0.05% 1 SPRAY NASAL.SRY 2 SPRAY NASAL (09:32)
[2021-10-12] MEDS: Ammonium Lactate 225 gm Bottle 1 APPLIC TOPICAL (09:32)
[2021-10-12] MEDS: Potassium Chloride Oral Tablet 20 MEQ PO (09:32)
[2021-10-12] MEDS: Gabapentin 600 MG Tablet 1200 MG PO (09:36)
[2021-10-12 10:01] LABS: Vitamin B12 195 pg/mL (211-911)
[2021-10-12 10:14] LABS: Procalcitonin < 0.04 ng/mL (0.00-0.09)
--- NOTE | 2021-10-12 10:17 | EX.PCM.CONCC ---
Assessment & Plan Assessment/Plan (1) Encephalopathy acute: PLAN: Plan RECOMMENDATIONS: 1. Supplemental oxygen for saturations 88 to 92%. 2. Continue BiPAP therapy per home regimen with naps and nightly. 3. Diuresis as tolerated by hemodynamics and renal function. 4. Discontinue antimicrobials. 5. The patient can follow-up in the pulmonary medicine clinic with Dr. Huitron on Friday at 1115 as scheduled. 6. Will sign off at this time. Please call with any additional questions. IMPRESSIONS: 1. Acute on chronic combined respiratory failure The patient has a known history of restrictive ventilatory mechanics and chronic hypoxemic and hypercarbic respiratory failure. She has been noncompliant with her Pap therapy over the course of the last 30 days. In addition, her chest imaging demonstrates a mild degree of hypervolemia. The patient has responded avidly to BiPAP therapy and diuresis. She appears to be at her baseline from a respiratory perspective. The importance of compliance with the use of BiPAP therapy was emphasized to the patient at length. I also explained to them, given their concerns for nocturnal hypoxemia, that an overnight oximetry study can be ordered to be completed on an outpatient basis on her current BiPAP and 2 L/min oxygen bleed to ensure adequacy of oxygenation on a nocturnal basis. 2. Hypercarbic encephalopathy Resolved. Secondary to noncompliance with home PAP therapy. Recommend continuing BiPAP therapy per home regimen with naps and nightly. 3. Obstructive sleep apnea/restrictive lung disease/alveolar hypoventilation secondary to obesity The patient has a known history of severe obstructive sleep apnea with probable obesity hypoventilation, diagnosed in June 2021. The patient was prescribed nocturnal BiPAP with a pressure support of 19/14 centimeters of water with a 2 L/min oxygen bleed. However, the patient's compliance report indicates that she has only been compliant 3% over the course of the last 30 days. The importance of compliance with BiPAP therapy was emphasized to the patient. I did explain to them that an overnight oximetry study can be completed on her current BiPAP with 2 L/min to ensure adequacy of oxygenation on a nightly basis. The patient is currently scheduled to follow-up with Dr. Huitron on Friday at 1115. 4. Heart failure with preserved ejection fraction/pulmonary hypertension Complicates care, management, recovery and prognosis. Continue diuresis as tolerated by hemodynamics and renal function. This note was generated with Dragon dictation software. It may contain incorrect words, spelling, and punctuation that were not noted in checking the note before signing. HPI Consult Data Date of Consult: 10/12/21 HPI Narrative Reason for Consultation: Respiratory failure HPI Narrative: The patient is a 61-year-old female, with a history as outlined below, who presented to the emergency department on October 12 with lethargy, fatigue, shortness of breath and cough. Aside from super morbid obesity, the patient has known heart failure with preserved ejection fraction and pulmonary hypertension, based upon echocardiogram from May 2021. In addition to the aforementioned, she has chronic hypoxemic respiratory failure with a baseline oxygen requirement between 3 and 5 L/min. The patient completed a split-night sleep study in June 2021 which revealed severe obstructive sleep apnea with probable obesity hypoventilation and periodic limb movement disorder. The patient is currently prescribed nocturnal bilevel with a pressure support of 19/14 centimeters of water with a 2 L/min oxygen bleed. However, the patient has only been 3% compliant with its use over the last 30 days. The patient is currently followed by Dr. Huitron in the pulmonary medicine clinic. On presentation to the emergency department, the patient was noted to be afebrile, hemodynamically stable and maintaining appropriate oxygen saturations on 4 L/min via nasal cannula. Initial laboratory evaluation revealed no evidence of a leukocytosis. Chemistry profile was notable for a bicarbonate of 45 with normal creatinine. Procalcitonin was unremarkable. Arterial blood gas demonstrated a pH of 7.28 with a PCO2 of 93 and PO2 of 162. Urine analysis was unremarkable. The patient was subsequently placed on BiPAP therapy and admitted to the progressive care unit. At this time, the patient has responded clinically to noninvasive positive pressure ventilatory support. I spoke with her and her family at the bedside for an extended length of time today. They have been concerned over her low oxygen saturations at night. I explained to them that periodic oxygen saturations are the normal part of sleep apnea and that the only way to combat this issue is for the patient to remain compliant with her BiPAP. They are concerned that she still remains hypoxic despite being on BiPAP with 2 L/min. I explained to them that an outpatient overnight oximetry study could be completed to confirm her need for an increased amount of supplemental O2. [facility] Medical History (Updated 10/12/21 @ 02:[address] Niecy Tan MD) Anemia Anxiety Chronic respiratory failure with hypoxia COVID-19 Diabetes mellitus, type 2 DVT (deep venous thrombosis) GERD (gastroesophageal reflux disease) History of breast cancer Hypertension Hypothyroidism Morbid obesity DONA (obstructive sleep apnea) Restrictive lung disease Home Medications ibuprofen 600 mg tablet 600 mg PO Q6H PRN PRN Pain #30 TABLETS 07/15/13 [Rx Last Taken Unknown] metoprolol tartrate 25 mg tablet 25 mg PO BID heart rate 07/15/13 [History Last Taken 05/17/21] multivitamin with folic acid 400 mcg tablet (Thera) 1 tab PO DAILY vitamin 07/15/13 [History Last Taken 05/16/21] potassium chloride 20 mEq tablet,extended release(part/cryst) (Klor-Con M) 20 meq PO DAILY supplement 07/15/13 [History Last Taken 05/16/21] spironolactone 25 mg tablet 25 mg PO DAILY diuretic 07/15/13 [History Last Taken 05/17/21] albuterol sulfate 2.5 mg/3 mL (0.083 %) solution for nebulization 2.5 mg inhalation Q4H PRN SOB 05/17/21 [History Last Taken 05/16/21] ammonium lactate 12 % lotion 1 ea topical DAILY apply to legs 05/17/21 [History Last Taken 05/15/21] benzonatate 100 mg capsule 100 mg PO TID PRN Cough 05/17/21 [History Last Taken 05/15/21] dulaglutide 0.75 mg/0.5 mL subcutaneous pen injector (Trulicity) 0.75 mg subcut DAWN DM 05/17/21 [History Last Taken 05/13/21] exemestane 25 mg tablet 25 mg PO DAILY hormone 05/17/21 [History Last Taken 05/17/21] fluticasone propionate 50 mcg/actuation nasal spray,suspension 2 spray intranasal DAILY allergies 05/17/21 [History Last Taken 05/17/21] gabapentin 300 mg capsule 1,200 mg PO BID DM 05/17/21 [History Last Taken 05/17/21] hydroxyzine HCl 25 mg tablet 25 mg PO DAILY PRN itching 05/17/21 [History Last Taken Unknown] levothyroxine 200 mcg tablet (Euthyrox) 200 mcg PO DAILY thyroid 05/17/21 [History Last Taken 05/16/21] metformin 500 mg tablet 500 mg PO DAILY DM 05/17/21 [History Last Taken 05/17/21] metoclopramide HCl 10 mg tablet 10 mg PO Q6H PRN GERD 05/17/21 [History Last Taken 05/17/21] furosemide 40 mg tablet 40 mg PO 1800 diuretic 10/12/21 [History Last Taken Unknown] furosemide 40 mg tablet 60 mg PO DAILY diuretic 10/12/21 [History Last Taken Unknown] letrozole 2.5 mg tablet 2.5 mg PO DAILY bc 10/12/21 [History Last Taken Unknown] Allergy/AdvReac Type Severity Reaction Status Date / Time diphenhydramine HCl Allergy HEART Verified 09/04/21 11:10 [From Benadryl] RACES levofloxacin [From Levaquin] Allergy HEART Verified 09/04/21 11:10 RACE AND FEELS SOB oxytocin [From Pitocin] AdvReac FLOATING Verified 09/04/21 11:10 FEELING ENVIROMENTAL AdvReac Other Uncoded 09/04/21 11:10 Family History (Updated 10/12/21 @ 02:[address] Niecy Tan MD) Father Diabetes COPD (chronic obstructive pulmonary disease) Glioblastoma Mother COPD (chronic obstructive pulmonary disease) Surgical History (Updated 10/12/21 @ 02:[address] Niecy Tan MD) History of breast reconstruction History of reduction surgery of left breast History of right mastectomy Social History (Updated 10/12/21 @ 02:[address] Niecy Tan MD) household members: family Smoking Status: Never smoker alcohol intake: never substance use type: does not use ROS Constitutional Constitutional: Reports malaise and weakness Eyes Eyes: Denies blurry vision or change in vision ENT HEENT: Denies dizziness, dysphagia, epistaxis or headache(s) Cardiovascular Cardiovascular: Reports dyspnea and edema; Denies chest pain Respiratory/Chest Respiratory/Chest: Reports cough and dyspnea Gastrointestinal Gastrointestinal: Denies abdominal pain, diarrhea, nausea or vomiting Genitourinary Genitourinary: Denies difficulty urinating Musculoskeletal Musculoskeletal: Denies arthralgias Integumentary Integumentary: Denies lesions Neurologic Neurologic: Reports confusion Psychiatric Psychiatric: Denies anxiety or depression Endocrine Endocrinology: Reports fatigue Hematologic/Lymphatic Hematologic/Lymphatic: Denies easy bleeding or easy bruising Physical Exam Const alert, oriented x3 and no apparent distress Constitutional Narrative: Super morbidly obese. Sitting in the bedside recliner. General Appearance: cooperative HEENT normocephalic, head/scalp atraumatic and moist oral mucous membranes Eyes PERRL, EOMs intact bilaterally and conjunctivae normal Neck supple General: trachea midline Chest inspection of chest normal Resp normal respiratory effort Resp Narrative: Faint basilar rales. Cardio regular rate and regular rhythm GI normal to inspection, nondistended, normoactive bowel sounds Extremity General Extremity: edema bilateral lower extremity; Negative for clubbing Skin General Skin Exam: venous stasis and dermatitis Neuro oriented x3, CN's II-XII intact bilaterally, moves all extremities and no focal motor deficits Psych cooperative and affect normal Lab / Micro Data Result Diagrams: 10/12/21 05:50 10/12/21 05:50 Labs: Laboratory Results - last 24 hr 10/11/21 23:54: WBC 6.1, RBC 2.72 L, Hgb 8.4 L, Hct 29.9 L, MCV 109.9 H, MCH 30.9, MCHC 28.1 L, RDW Std Deviation 61.1 H, RDW Coeff of Danielle 15.2 H, Plt Count 118 L, MPV 11.5, Immature Gran % (Auto) 1.500 H, Neut % (Auto) 71.1 H, Lymph % (Auto) 14.5 L, [place] % (Auto) 10.1 H, Eos % (Auto) 2.3, Baso % (Auto) 0.5, Absolute Neuts (auto) 4.3, Absolute Lymphs (auto) 0.88, Nucleated RBC % 0 10/11/21 23:54: Sodium 142, Potassium 4.4, Chloride 97 L, Carbon Dioxide 45.0 H, Anion Gap 0 L, BUN 12, Creatinine 0.81, Estim Creat Clear Calc 76.87, Est GFR (MDRD) Af Amer 92, Est GFR (MDRD) Non-Af 76, BUN/Creatinine Ratio 14.9, Glucose 141 H, Calcium 8.7, Total Bilirubin 0.60, AST 24, ALT 18, Alkaline Phosphatase 66, Troponin I High Sens 8, Total Protein 7.7, Albumin 3.5, Globulin 4.2, Albumin/Globulin Ratio 0.8 L 10/11/21 23:54: B-Natriuretic Peptide 77.6 10/12/21 00:30: Urine Color Yellow, Urine Clarity Clear, Urine pH 5.0, Ur Specific [place] 1.020, Urine Protein 15 H, Urine Glucose (UA) Normal, Urine Ketones Negative, Urine Occult Blood Negative, Urine Nitrite Negative, Urine Bilirubin Negative, Urine Urobilinogen 4 H, Ur Leukocyte Esterase Negative, Urine RBC 0 SEEN, Urine WBC 0 SEEN, Ur Squamous Epith Cells 0-5 SEEN, Urine Bacteria RARE, Hyaline Casts 10-25 SEEN, Urine Mucus 1+ 10/12/21 05:50: Procalcitonin < 0.04 10/12/21 05:50: WBC 5.7, RBC 2.64 L, Hgb 8.1 L, Hct 29.2 L, MCV 110.6 H, MCH 30.7, MCHC 27.7 L, RDW Std Deviation 61.6 H, RDW Coeff of Danielle 15.1 H, Plt Count 111 L, MPV 11.7, Immature Gran % (Auto) 0.500, Neut % (Auto) 74.5 H, Lymph % (Auto) 13.7 L, [place] % (Auto) 8.9, Eos % (Auto) 1.9, Baso % (Auto) 0.5, Absolute Neuts (auto) 4.2, Absolute Lymphs (auto) 0.78 L, Nucleated RBC % 0 10/12/21 05:50: Sodium 142, Potassium 4.0, Chloride 96 L, Carbon Dioxide 44.0 H, Anion Gap 2 L, BUN 13, Creatinine 0.76, Estim Creat Clear Calc 81.93, Est GFR (MDRD) Af Amer 99, Est GFR (MDRD) Non-Af 82, BUN/Creatinine Ratio 17.2, Glucose 145 H, Calcium 8.8, Total Bilirubin 0.70, AST 17, ALT 17, Alkaline Phosphatase 65, Total Protein 7.4, Albumin 3.5, Globulin 3.9, Albumin/Globulin Ratio 0.9, Folate 35.20 10/12/21 05:50: Vitamin B12 195 L 10/12/21 06:53: POC Glucose 143 H Micro: Microbiology 10/12/21 06:58 Urine, Clean Catch Legionella Antigen - Final 10/11/21 23:50 Nasal Secretion SARS-CoV-2 Antigen (Rapid) - Final ABG Data ABG results: ABG 10/11/21 23:48 Specimen Type ART Sample Site L Radial pH 7.28 L Bicarbonate Actual 44.4 H Total CO2 47 Base Excess 18 H O2 Saturation 99 ABG pCO2 93.8 H* ABG pO2 162 H Test Positive O2 Delivery Device Cannula Liter Flow 4.0 Crit Call To/Read Back Yes Blood Gas Notified Whom LE Radiology Impression Chest X-Ray 10/11/21 00:00 IMPRESSION: Bilateral infiltrates and small right pleural effusion pneumonia versus pulmonary edema/CHF. Electronically Signed: Danielle Recinos MD at 0:37 EDT , Charges/Coding Visit Charges Inpatient E&M: 89401 Init Hosp L3
--- NOTE | 2021-10-12 10:19 | CASEMGMT ---
Pt has bipap thru [facility] but pt/son state pt is desatting and machine is not working correctly. Per Cleeste and Dr. Robles, machine is working fine but pt is only wearing 3% of time. Son states pt desats so he takes her off pap. Per Dr. Robles and Lori in sleep lab, pt will desat at times but needs pap left on to keep airway open and sat will come back up. Pt had split night sleep study 06/18/21 here at [facility] and per Lori in sleep lab, in 2 hours with pap on pt desatted less than 88% for a total of 3 minutes and this is 'probably the best that pt will be.' Dr. Olivas aware and pt/son updated by him and Dr. Robles states will also discuss with pt/son again. [facility] does request an order for an overnight pulse oximetry for pt to be completed at home and Dr. Baig completed order and this was faxed to [facility] in [place]. Pt's order is for bipap 19/14 with 2L bleed in at night and pt's home oxygen order is for 4L continuous. CM to follow. Roberto EVANS CM
[2021-10-12] MEDS: 0.9% Saline Lock 10 ML Syringe IV (11:36)
[2021-10-12] MEDS: Furosemide 20 MG/2 ML VIAL IV (11:36)
[2021-10-12] MEDS: Insulin Lispro 100 UNIT/ML INSULN.PEN SC (11:36)
[2021-10-12] MEDS: Metolazone 2.5 MG Tablet PO (11:36)
--- NOTE | 2021-10-12 11:45 | CASEMGMT ---
Addendum entered by Mindi Lo 10/12/21 14:03: Script to pt/family for bariatric shower chair per request. Pt/family updated on all, voice understanding. This RN CM answered multiple questions for pt/family and updated on f/u with Dr. Huitron on 10/15, voice understanding. Daughter asks about HPOA so that son/daughter can sign papers for pt and this RN CM advised pt/family that HPOA only kicks in if pt unable to make decisions for self. Family states they would like to be able to sign papers for pt and pt advised to discuss with specific companies/offices regarding family being able to sign, voices understanding. Daughter also inquired about transfer device to get pt from motorized scooter to a chair and per therapy, there is not a device that they are aware of and they believe that pt can accomplish on own. Pt/family updated and voice no further questions/concerns/needs. Roberto EVANS CM Addendum entered by Mindi Lo 10/12/21 13:19: Call to [facility] to verify that someone go out with pt/son to verify pap mask fit and use, voice understanding and states resp therapist will touch base with son regarding same today. Per [facility], pt was enrolled in the [facility] pt link program. Pt declined for PT/OT to be added to [facility] at this time despite therapy recommendations. Pt was also scheduled to f/u with Dr. Huitron on 10/15/21 at 1115 and this was placed on d/c instructions. Roberto EVANS CM Original Note: Pt is active with [facility] for SN and AGUSTÍN order placed. Bianca at [facility] aware of pt discharge today, voices understanding. Roberto EVANS CM
[2021-10-12 11:50] LABS: Bedside Glucose 159 mg/dL (74-106)
--- NOTE | 2021-10-12 13:10 | CASEMGMT ---
Addendum entered by Smita Foss 10/12/21 15:01: 1430: Script for bariatric shower chair obtained from Dr Olivas and tubed to PCU for CRISTINA Obregon CM. She was made aware. Original Note: CRISTINA ZIMMER SOUND RANGING CREWMEMBER CM to room to meet with patient for initial transition planning/care coordination assessment. CRISTINA ZIMMER introduced self and role at [facility].? Pt voices understanding and consents to assessment at this time.? Pt sitting up in recliner chair in room in no distress at this time.? Daughter @ bedside. Pt is A/O at this time and answers all questions appropriately.?? Care providers, pharmacy, and demographics verified/updated at this time. PCP: [facility] Specialists: JACQUES Schaffer; Tomy manager home Preferred Pharmacy: [facility] Insurance: MMO Prescription Benefit: yes Living Will/HPOA: none. Pt is interested in completing. Multiple questions from dtr answered. Made aware, if SW available before pt discharges that she can assist w/completing while pt here. Dtr states pt needs to leave before 5 PM to home in time for [facility] to set up overnight pulse oximetry. Made aware SW will most likely not have time to complete these today before discharge and made aware pt can make appt w/SW as an out-pt and complete then. They have SW contact info. They voice understanding. LNOK: 3 children-1 son, 2 daughters Living Arrangements: Patient lives with her 3 adult children in a single story home with 2 steps and grab bar to enter. Family assists w/personal care/bathing and dressing as needed and complete most last waxer. Pt assists w/home tasks as able. Transportation: children, sister DME: patient states she has shower chair, BSC, raised toilet, lift chair, grab bars, walker rollator, wheelchair, hospital bed, scooter, nebulizer, pulse ox, home oxygen through [facility] with portability, and BIPAP. (2 l/m bleed-in). Dtr states shower chair pt has is getting rickety and they would like to get another one. They were made aware insurance may not cover for this, but a script can be provided and they can check on this once home. Dtr also provided w/list of local DME companies. She voices appreciation. Dtr inquired about obtaining bariatric size depends for pt. Information provided and questions answered. Discussed options of checking on-line, [employer], or [employer]. Son has portable tank he will bring in today for pt to go home on. HHC: Patient is active with [facility] HHC: . Pt declines wanting PT/OT added. Discharge Plan: Patient to discharge home with resumption of HHC, family support, and follow-up plans in place. Mingo AVALOSN RN CM
--- NOTE | 2021-10-12 13:57 | PCM.DC ---
Discharge Instructions Diet Discharge Diet: 1800 Calorie Control Diet Activity Discharge Activity: Return to Normal Activity Weight Bearing Status: Full weight bearing Follow Up Care Test Results: Test results from this visit will be discussed in further detail at your follow-up appointment, if applicable. Discharge Plan Admission Admit Date/Time: 10/12/21 01:00 Primary Reason for Your Visit: hypercapnea, respiratory failure Attending Provider: Randall Olivas Primary Care Provider: Lidya Mathias Consulting Providers: Niecy Tan ; Fredo Huitron ; Bassam Robles ; Vincenzo Snyder ; Lian Rizvi CLASSIFICATION COUNSELOR Instructions Additional Instructions / Restrictions: Remain on Bipap and oxygen as before Discharge Orders/Prescriptions Prescriptions: Continued spironolactone 25 MG tablet 25 mg PO DAILY metoprolol tartrate 25 MG tablet 25 mg PO BID multivitamin with folic acid [Thera] 1 TABLET tablet 1 tab PO DAILY ibuprofen 600 MG tablet 600 mg PO Q6H PRN PRN (Reason: Pain) Qty: 30 0RF metformin 500 mg tablet 500 mg PO DAILY Label Comments: TAKE 2 TABLETS BY MOUTH TWICE DAILY WITH MEALS albuterol sulfate 2.5 mg /3 mL (0.083 %) Solution For Nebulization 2.5 mg INHALATION Q4H PRN (Reason: SOB) ammonium lactate 12 % lotion 1 ea TOPICAL DAILY Label Comments: APPLY LOTION TOPICALLY TO AFFECTED AREA NEEDED FOR DRY SKIN exemestane 25 mg tablet 25 mg PO DAILY Label Comments: TAKE 1 TABLET BY MOUTH ONCE DAILY AFTER A MEAL benzonatate 100 mg capsule 100 mg PO TID PRN (Reason: Cough) Label Comments: TAKE 1 CAPSULE BY MOUTH THREE TIMES DAILY NEEDED FOR COUGH gabapentin 300 mg capsule 1,200 mg PO BID hydroxyzine HCl 25 mg tablet 25 mg PO DAILY PRN (Reason: itching) Label Comments: TAKE 1 TABLET BY MOUTH EVERY 6 HOURS NEEDED FOR ITCHING OR RASH levothyroxine [Euthyrox] 200 mcg tablet 200 mcg PO DAILY Label Comments: TAKE 1 TABLET BY MOUTH ONCE DAILY ON AN EMPTY STOMACH FOR THYROID fluticasone propionate 50 mcg/actuation spray,suspension 2 spray INTRANASAL DAILY Label Comments: USE 2 SPRAYS IN EACH NOSTRIL ONCE DAILY, RINSE MOUTH AFTER USE. metoclopramide HCl 10 mg tablet 10 mg PO Q6H PRN (Reason: GERD) Label Comments: TAKE 1 TABLET BY MOUTH EVERY 6 HOURS NEEDED Trulicity 0.75 mg/0.5 mL pen injector 0.75 mg SUBCUT DAWN furosemide 40 mg tablet 40 mg PO 1800 Label Comments: TAKE ONE AND ONE-HALF TABLETS BY MOUTH EVERY MORNING AND ONE TABLET EVERY AFTERNOON DIRECTED. letrozole 2.5 mg tablet 2.5 mg PO DAILY Label Comments: 1 tablet by mouth as directed Changed furosemide 40 MG tablet 80 mg PO DAILY Qty: 120 0RF potassium chloride [Klor-Con M20] 20 MEQ tablet,ER particles/crystals 20 meq PO BIDCM Qty: 60 0RF Label Comments: Referrals / Follow Up: Fredo Huitron MD [Med Staff - Active Staff] - 10/15/21 11:15 am Lidya Mathias MD [Primary Care Provider] - Within 1 Week (you will need a BMP test done (blood test) to monitor kidney function and potassium) Disposition Disposition (needs filled in before D/C Order can be placed): Home Health Service
--- NOTE | 2021-10-12 14:29 | PCM.DC.SUM ---
Providers Date of Admission: 10/12/21 Date of Discharge: 10/12/21 Primary Care Physician: Dr. Lidya Mathias MD Consultations 10/12/21 07:18 Consult: Business Operations Consultant / Pulmonary Medicine Routine Consulting Provider: Pulmonary Medicine [facility] [place] Reason for Consult: ? pneumonia, respiratory failure EMERGENT Consult: No MD Notified: Yes Date Notified: 10/12/21 Time Notified: 07:56 Method of Notification: Text Reason For Visit: ENCEPHALOPATHY, ? PNA, HYPERCAPNIA Diagnosis Discharge Diagnosis (1) Encephalopathy acute: Status: Acute Code(s): G93.40 - Encephalopathy, unspecified Plan 1. 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 #6 essential hypertension #7 hypothyroidism #8 acute on chronic combined respiratory failure secondary to noncompliance with home BiPAP #9 moderate pulmonary hypertension Community-acquired pneumonia was ruled out Medications at Discharge Home Medications ibuprofen 600 mg tablet 600 mg PO Q6H PRN PRN Pain #30 TABLETS 07/15/13 metoprolol tartrate 25 mg tablet 25 mg PO BID heart rate 07/15/13 multivitamin with folic acid 400 mcg tablet (Thera) 1 tab PO DAILY vitamin 07/15/13 spironolactone 25 mg tablet 25 mg PO DAILY diuretic 07/15/13 albuterol sulfate 2.5 mg/3 mL (0.083 %) solution for nebulization 2.5 mg inhalation Q4H PRN SOB 05/17/21 ammonium lactate 12 % lotion 1 ea topical DAILY apply to legs 05/17/21 benzonatate 100 mg capsule 100 mg PO TID PRN Cough 05/17/21 dulaglutide 0.75 mg/0.5 mL subcutaneous pen injector (Trulicity) 0.75 mg subcut DAWN DM 05/17/21 exemestane 25 mg tablet 25 mg PO DAILY hormone 05/17/21 fluticasone propionate 50 mcg/actuation nasal spray,suspension 2 spray intranasal DAILY allergies 05/17/21 gabapentin 300 mg capsule 1,200 mg PO BID DM 05/17/21 hydroxyzine HCl 25 mg tablet 25 mg PO DAILY PRN itching 05/17/21 levothyroxine 200 mcg tablet (Euthyrox) 200 mcg PO DAILY thyroid 05/17/21 metformin 500 mg tablet 500 mg PO DAILY DM 05/17/21 metoclopramide HCl 10 mg tablet 10 mg PO Q6H PRN GERD 05/17/21 furosemide 40 mg tablet 40 mg PO 1800 diuretic 10/12/21 furosemide 40 mg tablet 80 mg PO DAILY diuretic #120 tabs 10/12/21 letrozole 2.5 mg tablet 2.5 mg PO DAILY bc 10/12/21 potassium chloride 20 mEq tablet,extended release(part/cryst) (Klor-Con M) 20 meq PO BIDCM supplement #60 tabs 10/12/21 Hospital Course Operations None Procedures None Summary of Care Provided Minutes Spent on Discharge: 31 Hospital Course: This 61-year-old white female was seen in the emergency room at [facility] with complaints by her family of increasing confusion over 48 hours. Patient was on chronic oxygen at home, she was noncompliant with her BiPAP however-her son would take the patient off BiPAP due to the feeling that it was not working properly based on her pulse ox being low at home. Work-up in the emergency room included arterial blood gas-patient's pH was 7.2 and a PCO2 was 91 on nasal cannula oxygen, patient was placed on BiPAP, chest x-ray was performed which showed bilateral lower lobe infiltrates consistent with a possible pneumonia, patient's white count however was normal and she was afebrile. Patient's hemoglobin was 8.4. Patient was placed on IV Rocephin and Zithromax, she was admitted to PCU on BiPAP, her mentation improved, and she was seen in consultation by pulmonary medicine. Pulmonary medicine felt that the patient did not have community-acquired pneumonia and likely had an exacerbation of chronic diastolic congestive heart failure. Patient was given 1 dose of IV Lasix and oral Zaroxolyn. Quite some time was spent with the patient and the patient's family on education concerning the patient's BiPAP, I contacted the patient's oxygen supplier and they recommended an overnight pulse ox if the patient's family was concerned about the patient's pulse ox being low on her BiPAP-I set this up for the patient by writing a prescription for this. Patient was instructed to follow-up with pulmonary medicine (Dr. Huitron) an appointment was set up for her. On 10/12/2021, patient was seen and examined: On examination she appeared in good health and spirits, she does not appear to be in any distress. Patient is morbidly obese. Vital signs as documented. Skin warm and dry and without overt rashes. Neck without JVD, thyroid appears normal, trachea is midline, neck is supple. Lungs clear, normal air movement was noted. Heart exam notable for regular rhythm, normal sounds and absence of murmurs, rubs or gallops. Abdomen unremarkable and without evidence of organomegaly, masses, or abdominal aortic enlargement, bowel sounds are present in all 4 quadrants, no abdominal tenderness was noted. Extremities nonedematous, no cyanosis was noted, no clubbing was noted. Neuro: Cranial nerves II through XII are grossly intact, no focal motor deficits were noted, sensation to light touch and pinprick is intact, motor exam 5/5 throughout. Psych: Patient is alert and oriented x3, she does not appear anxious or depressed, she does not appear agitated. On 10/12/2021, patient was seen and examined felt in stable condition for discharge home. Weight / BMI Weight Weight: 164.3 kg Body Mass Index (BMI) 51.9 ABG / Lab / Microbiology Data Result Diagrams: 10/12/21 05:50 10/12/21 05:50 Laboratory: Laboratory Results - last 24 hr 10/11/21 23:54: WBC 6.1, RBC 2.72 L, Hgb 8.4 L, Hct 29.9 L, MCV 109.9 H, MCH 30.9, MCHC 28.1 L, RDW Std Deviation 61.1 H, RDW Coeff of Danielle 15.2 H, Plt Count 118 L, MPV 11.5, Immature Gran % (Auto) 1.500 H, Neut % (Auto) 71.1 H, Lymph % (Auto) 14.5 L, Luce % (Auto) 10.1 H, Eos % (Auto) 2.3, Baso % (Auto) 0.5, Absolute Neuts (auto) 4.3, Absolute Lymphs (auto) 0.88, Nucleated RBC % 0 10/11/21 23:54: Sodium 142, Potassium 4.4, Chloride 97 L, Carbon Dioxide 45.0 H, Anion Gap 0 L, BUN 12, Creatinine 0.81, Estim Creat Clear Calc 76.87, Est GFR (MDRD) Af Amer 92, Est GFR (MDRD) Non-Af 76, BUN/Creatinine Ratio 14.9, Glucose 141 H, Calcium 8.7, Total Bilirubin 0.60, AST 24, ALT 18, Alkaline Phosphatase 66, Troponin I High Sens 8, Total Protein 7.7, Albumin 3.5, Globulin 4.2, Albumin/Globulin Ratio 0.8 L 10/11/21 23:54: B-Natriuretic Peptide 77.6 10/12/21 00:30: Urine Color Yellow, Urine Clarity Clear, Urine pH 5.0, Ur Specific Lincoln 1.020, Urine Protein 15 H, Urine Glucose (UA) Normal, Urine Ketones Negative, Urine Occult Blood Negative, Urine Nitrite Negative, Urine Bilirubin Negative, Urine Urobilinogen 4 H, Ur Leukocyte Esterase Negative, Urine RBC 0 SEEN, Urine WBC 0 SEEN, Ur Squamous Epith Cells 0-5 SEEN, Urine Bacteria RARE, Hyaline Casts 10-25 SEEN, Urine Mucus 1+ 10/12/21 05:50: Procalcitonin < 0.04 10/12/21 05:50: WBC 5.7, RBC 2.64 L, Hgb 8.1 L, Hct 29.2 L, MCV 110.6 H, MCH 30.7, MCHC 27.7 L, RDW Std Deviation 61.6 H, RDW Coeff of Danielle 15.1 H, Plt Count 111 L, MPV 11.7, Immature Gran % (Auto) 0.500, Neut % (Auto) 74.5 H, Lymph % (Auto) 13.7 L, Luce % (Auto) 8.9, Eos % (Auto) 1.9, Baso % (Auto) 0.5, Absolute Neuts (auto) 4.2, Absolute Lymphs (auto) 0.78 L, Nucleated RBC % 0 10/12/21 05:50: Sodium 142, Potassium 4.0, Chloride 96 L, Carbon Dioxide 44.0 H, Anion Gap 2 L, BUN 13, Creatinine 0.76, Estim Creat Clear Calc 81.93, Est GFR (MDRD) Af Amer 99, Est GFR (MDRD) Non-Af 82, BUN/Creatinine Ratio 17.2, Glucose 145 H, Calcium 8.8, Total Bilirubin 0.70, AST 17, ALT 17, Alkaline Phosphatase 65, Total Protein 7.4, Albumin 3.5, Globulin 3.9, Albumin/Globulin Ratio 0.9, Folate 35.20 10/12/21 05:50: Vitamin B12 195 L 10/12/21 06:53: POC Glucose 143 H 10/12/21 11:27: POC Glucose 159 H Microbiology: Microbiology 10/12/21 06:58 Urine, Clean Catch Legionella Antigen - Final 10/11/21 23:50 Nasal Secretion SARS-CoV-2 Antigen (Rapid) - Final ABG: ABG 10/11/21 23:48 Specimen Type ART Sample Site L Radial pH 7.28 L Bicarbonate Actual 44.4 H Total CO2 47 Base Excess 18 H O2 Saturation 99 ABG pCO2 93.8 H* ABG pO2 162 H Test Positive O2 Delivery Device Cannula Liter Flow 4.0 Crit Call To/Read Back Yes Blood Gas Notified Whom LE Radiography Diagnostic Testing: Radiology Impression Chest X-Ray 10/11/21 00:00 IMPRESSION: Bilateral infiltrates and small right pleural effusion pneumonia versus pulmonary edema/CHF. Electronically Signed: Danielle Recinos MD at 0:37 EDT , D/C Instructions Discharge Diet: 1800 Calorie Control Diet Weight Bearing Status: Full weight bearing Meaningful Use Info Meaningful Use Diagnoses (Choose all that apply): CHF CHF OLMAN/ARB ordered at discharge?: No Reason OLMAN/ARB not ordered?: Normal EF Documented LVEF (%): 65 Discharge Plan Admission Admit Date/Time: 10/12/21 01:00 Primary Reason for Your Visit: hypercapnea, respiratory failure Attending Provider: Randall Olivas Primary Care Provider: Lidya Mathias Consulting Providers: Niecy Tan ; Fredo Huitron ; Bassam Robles ; Vincenzo Snyder ; Lian Rizvi DECKHAND Instructions Additional Instructions / Restrictions: Remain on Bipap and oxygen as before Discharge Orders/Prescriptions Prescriptions: Continued spironolactone 25 MG tablet 25 mg PO DAILY metoprolol tartrate 25 MG tablet 25 mg PO BID multivitamin with folic acid [Thera] 1 TABLET tablet 1 tab PO DAILY ibuprofen 600 MG tablet 600 mg PO Q6H PRN PRN (Reason: Pain) Qty: 30 0RF metformin 500 mg tablet 500 mg PO DAILY Label Comments: TAKE 2 TABLETS BY MOUTH TWICE DAILY WITH MEALS albuterol sulfate 2.5 mg /3 mL (0.083 %) Solution For Nebulization 2.5 mg INHALATION Q4H PRN (Reason: SOB) ammonium lactate 12 % lotion 1 ea TOPICAL DAILY Label Comments: APPLY LOTION TOPICALLY TO AFFECTED AREA NEEDED FOR DRY SKIN exemestane 25 mg tablet 25 mg PO DAILY Label Comments: TAKE 1 TABLET BY MOUTH ONCE DAILY AFTER A MEAL benzonatate 100 mg capsule 100 mg PO TID PRN (Reason: Cough) Label Comments: TAKE 1 CAPSULE BY MOUTH THREE TIMES DAILY NEEDED FOR COUGH gabapentin 300 mg capsule 1,200 mg PO BID hydroxyzine HCl 25 mg tablet 25 mg PO DAILY PRN (Reason: itching) Label Comments: TAKE 1 TABLET BY MOUTH EVERY 6 HOURS NEEDED FOR ITCHING OR RASH levothyroxine [Euthyrox] 200 mcg tablet 200 mcg PO DAILY Label Comments: TAKE 1 TABLET BY MOUTH ONCE DAILY ON AN EMPTY STOMACH FOR THYROID fluticasone propionate 50 mcg/actuation spray,suspension 2 spray INTRANASAL DAILY Label Comments: USE 2 SPRAYS IN EACH NOSTRIL ONCE DAILY, RINSE MOUTH AFTER USE. metoclopramide HCl 10 mg tablet 10 mg PO Q6H PRN (Reason: GERD) Label Comments: TAKE 1 TABLET BY MOUTH EVERY 6 HOURS NEEDED Trulicity 0.75 mg/0.5 mL pen injector 0.75 mg SUBCUT DAWN furosemide 40 mg tablet 40 mg PO 1800 Label Comments: TAKE ONE AND ONE-HALF TABLETS BY MOUTH EVERY MORNING AND ONE TABLET EVERY AFTERNOON DIRECTED. letrozole 2.5 mg tablet 2.5 mg PO DAILY Label Comments: 1 tablet by mouth as directed Changed furosemide 40 MG tablet 80 mg PO DAILY Qty: 120 0RF potassium chloride [Klor-Con M20] 20 MEQ tablet,ER particles/crystals 20 meq PO BIDCM Qty: 60 0RF Label Comments: Referrals / Follow Up: Fredo Huitron MD [Med Staff - Active Staff] - 10/15/21 11:15 am Lidya Mathias MD [Primary Care Provider] - Within 1 Week (you will need a BMP test done (blood test) to monitor kidney function and potassium) Disposition Disposition (needs filled in before D/C Order can be placed): Home Health Service Charges/Coding Visit Charges OBSV E&M: 16909 Observation care discharge
== END 2021-10-12 15:18 | disposition home health service (06) ==
LOC: ED 10-12 00:27 → PCU 10-12 01:34
PROVIDERS: Admitting Provider Family Medicine; Emergency Provider Emergency Medicine; PCP Internal Medicine; Visit Provider Internal Medicine
DX: J96.22 Acute and chronic respiratory failure with hypercapnia (principal); I11.0 Hypertensive heart disease with heart failure; I50.33 Acute on chronic diastolic (congestive) heart failure; I27.20 Pulmonary hypertension, unspecified; E11.40 Type 2 diabetes mellitus with diabetic neuropathy, unspecified; J96.21 Acute and chronic respiratory failure with hypoxia; E66.2 Morbid (severe) obesity with alveolar hypoventilation; Z68.43 Body mass index [BMI] 50.0-59.9, adult; Z79.84 Long term (current) use of oral hypoglycemic drugs; E78.5 Hyperlipidemia, unspecified; K21.9 Gastro-esophageal reflux disease without esophagitis; Z79.82 Long term (current) use of aspirin; E03.9 Hypothyroidism, unspecified; Z20.822 Contact with and (suspected) exposure to COVID-19; G93.40 Encephalopathy, unspecified; Z79.811 Long term (current) use of aromatase inhibitors; Z91.19 Patient's noncompliance with other medical treatment and regimen; Z79.899 Other long term (current) drug therapy; Z86.718 Personal history of other venous thrombosis and embolism; Z86.16 Personal history of COVID-19; Z99.81 Dependence on supplemental oxygen; R06.02 Shortness of breath
CPT/HCPCS: 36415; 36600; 71045; 80053; 81001; 82607; 82746; 82803; 82962; 83880; 84145; 84484; 85025; 87449; 87633; 87811; 93005; 94002; 94640; 94762; 96365; 96367; 96372; 96375; 97162; 97166; 99218; 99285; A4216; G0378; J1940

== ENCOUNTER 2021-11-14 15:14 | Outpatient (RCR) | payer OTHER, SELFPAY ==
[2021-11-14 15:52] LABS: Anion Gap 4 (5-15); BUN 16 mg/dL (7-18); BUN/Creat Ratio 19.4 RATIO (10-20); Calcium,Total 9.3 mg/dL (8.5-10.1); Chloride 98 mmol/L (98-107); Creatinine, Serum 0.83 mg/dL (0.55-1.02); EST Glomerular Filtration Rate 74 mL/min (>60); Est Glom Filt Rate - Afr Amer 90 mL/min (>60); Glucose 116 mg/dL (74-106); Sodium Level 140 mmol/L (136-145)
== END 2021-11-14 18:00 | disposition home or self-care (01) ==
LOC: HHLAB 15:14
PROVIDERS: PCP Internal Medicine; Visit Provider Internal Medicine
DX: J18.9 Pneumonia, unspecified organism (principal); J96.21 Acute and chronic respiratory failure with hypoxia; J96.22 Acute and chronic respiratory failure with hypercapnia
CPT/HCPCS: 80048

== ENCOUNTER 2021-12-26 15:34 | Outpatient (RCR) | payer OTHER, SELFPAY ==
[2021-12-26 16:01] LABS: Absolute Lymphocyte Count 1.09 X10^3/uL (0.83-4.51); Basophil# 0.05 X10^3/uL; Basophil% 0.4 % (0-1); Eosinophil# 0.18 X10^3/uL; Eosinophils% 1.6 % (0-5); Hematocrit 33.3 % (37-47); Hemoglobin 9.9 g/dL (12.0-15.0); Lymphocyte # 1.09 X10^3/ul (0.83-4.51); Lymphocyte % 9.8 % (19-41); Mean Corp Hgb Conc 29.7 g/dL (32-36); Mean Corpuscular Hgb 30.9 pg (27.0-32.0); Mean Corpuscular Volume 104.1 fL (81-99); Mean Platelet Vol. 12.6 fl (6.2-12.0); Monocyte# 0.81 X10^3/uL; Monocyte% 7.3 % (0-10); NRBC Flagged by Analyzer 0 % (0-5); Neutrophil # 8.95 X10^3/uL (2.7-7.7); Neutrophil % 80.3 % (47-70); Platelet Count 167 K/mm3 (150-450); RBC Distribution Width CV 14.8 % (11.6-14.6); White Blood Count 11.2 K/mm3 (4.4-11.0)
[2021-12-26 16:19] LABS: Hemoglobin A1c 5.2 % (3.8-5.6)
[2021-12-26 16:21] LABS: ALB/GLOB Ratio 0.9 RATIO (0.9-2.4); AST(SGOT) 18 U/L (15-37); Alanine Aminotransfer ALT/SGPT 22 U/L (13-56); Alkaline Phosphatase 84 U/L (45-117); Anion Gap 7 (5-15); BUN 27 mg/dL (7-18); BUN/Creat Ratio 22.9 RATIO (10-20); Calcium,Total 9.9 mg/dL (8.5-10.1); Chloride 89 mmol/L (98-107); Cholesterol 164 mg/dL (200); Creatinine, Serum 1.18 mg/dL (0.55-1.02); EST Glomerular Filtration Rate 49 mL/min (>60); Est Glom Filt Rate - Afr Amer 59 mL/min (>60); Free T3 2.4 pg/mL (2.18-3.98); Globulin 4.7 g/dL (2.2-4.2); Glucose 161 mg/dL (74-106); High Density Lipoprotein 32 mg/dL; Magnesium 2.2 mg/dL (1.6-2.6); Potassium 3.2 mmol/L (3.5-5.1); Protein, Total 8.7 g/dL (6.4-8.2); Sodium Level 136 mmol/L (136-145); T4 Free Direct 1.15 ng/dL (0.76-1.46); Triglycerides 117 mg/dL; Very Low Density Lipoprotein 23 mg/dL (5-40)
== END 2022-01-16 18:00 | disposition home or self-care (01) ==
LOC: HHLAB 15:34
PROVIDERS: PCP Internal Medicine; Visit Provider Internal Medicine
DX: J18.9 Pneumonia, unspecified organism (principal); I27.20 Pulmonary hypertension, unspecified; E11.40 Type 2 diabetes mellitus with diabetic neuropathy, unspecified; J96.21 Acute and chronic respiratory failure with hypoxia; J96.22 Acute and chronic respiratory failure with hypercapnia; E66.01 Morbid (severe) obesity due to excess calories; D69.6 Thrombocytopenia, unspecified; K21.9 Gastro-esophageal reflux disease without esophagitis; E03.9 Hypothyroidism, unspecified; Z85.3 Personal history of malignant neoplasm of breast; Z90.11 Acquired absence of right breast and nipple; Z86.16 Personal history of COVID-19; Z87.01 Personal history of pneumonia (recurrent); Z79.85 Long-term (current) use of injectable non-insulin antidiabetic drugs; Z99.81 Dependence on supplemental oxygen; Z79.01 Long term (current) use of anticoagulants; Z79.899 Other long term (current) drug therapy; Z79.52 Long term (current) use of systemic steroids
CPT/HCPCS: 80053; 80061; 83036; 83735; 84439; 84443; 84481; 85025

== ENCOUNTER → 2022-01-28 | Outpatient (CLI) | payer OTHER, SELFPAY ==
[2022-01-28 12:07] LABS: Hematocrit 31.7 % (37-47); Hemoglobin 9.3 g/dL (12.0-15.0); Mean Corp Hgb Conc 29.3 g/dL (32-36); Mean Corpuscular Hgb 31.3 pg (27.0-32.0); Mean Corpuscular Volume 106.7 fL (81-99); Mean Platelet Vol. 12.2 fl (6.2-12.0); Platelet Count 143 K/mm3 (150-450); RBC Distribution Width CV 14.4 % (11.6-14.6); RBC Distribution Width SD 56.7 fl (35.1-43.9); Red Blood Count 2.97 M/mm3 (4.2-5.4); White Blood Count 9.1 K/mm3 (4.4-11.0)
[2022-01-28 12:18] LABS: Anion Gap 2 (5-15); BUN 19 mg/dL (7-18); BUN/Creat Ratio 19.3 RATIO (10-20); Calcium,Total 8.8 mg/dL (8.5-10.1); Chloride 101 mmol/L (98-107); Creatinine, Serum 0.98 mg/dL (0.55-1.02); EST Glomerular Filtration Rate 61 mL/min (>60); Est Glom Filt Rate - Afr Amer 73 mL/min (>60); Glucose 167 mg/dL (74-106); Magnesium 2.5 mg/dL (1.6-2.6); Potassium 4.1 mmol/L (3.5-5.1); Sodium Level 140 mmol/L (136-145); T4 Free Direct 1.14 ng/dL (0.76-1.46); Thyroid Stim Hormone (TSH) 3.07 uIU/mL (0.358-3.74)
== END | disposition home or self-care (01) ==
LOC: LAB 09:46
PROVIDERS: PCP Internal Medicine; Visit Provider Internal Medicine
DX: E11.42 Type 2 diabetes mellitus with diabetic polyneuropathy (principal); E87.6 Hypokalemia; Z79.899 Other long term (current) drug therapy; E03.9 Hypothyroidism, unspecified
CPT/HCPCS: 36415; 80048; 83735; 84439; 84443; 84481; 85027

== ENCOUNTER → 2022-03-04 | Outpatient (CLI) | payer OTHER, SELFPAY ==
[2022-03-04 12:15] LABS: Absolute Lymphocyte Count 1.02 X10^3/uL (0.83-4.51); Absolute Neutrophil Count 5.5 X10^3/uL (2.0-7.7); Basophil# 0.04 X10^3/uL; Basophil% 0.5 % (0-1); Eosinophils% 2.7 % (0-5); Hematocrit 31.4 % (37-47); Hemoglobin 9.3 g/dL (12.0-15.0); Lymphocyte # 1.02 X10^3/ul (0.83-4.51); Lymphocyte % 13.8 % (19-41); Mean Corp Hgb Conc 29.6 g/dL (32-36); Mean Corpuscular Hgb 30.2 pg (27.0-32.0); Mean Corpuscular Volume 101.9 fL (81-99); Mean Platelet Vol. 12.3 fl (6.2-12.0); Monocyte# 0.55 X10^3/uL; Monocyte% 7.4 % (0-10); NRBC Flagged by Analyzer 0 % (0-5); Neutrophil # 5.51 X10^3/uL (2.7-7.7); Neutrophil % 74.7 % (47-70); Platelet Count 136 K/mm3 (150-450); RBC Distribution Width CV 13.8 % (11.6-14.6); Red Blood Count 3.08 M/mm3 (4.2-5.4); White Blood Count 7.4 K/mm3 (4.4-11.0)
[2022-03-04 12:42] LABS: Vitamin B12 267 pg/mL (211-911); Vitamin D,25 Hydroxy 32.7 ng/mL
[2022-03-04 12:44] LABS: Hemoglobin A1c 5.4 % (3.8-5.6)
[2022-03-04 12:49] LABS: ALB/GLOB Ratio 0.9 RATIO (0.9-2.4); AST(SGOT) 14 U/L (15-37); Alanine Aminotransfer ALT/SGPT 17 U/L (13-56); Albumin, Serum 3.6 g/dL (3.2-5.0); Alkaline Phosphatase 68 U/L (45-117); Anion Gap 6 (5-15); BUN 21 mg/dL (7-18); Calcium,Total 9.5 mg/dL (8.5-10.1); Chloride 98 mmol/L (98-107); Creatinine, Serum 1.05 mg/dL (0.55-1.02); EST Glomerular Filtration Rate 56 mL/min (>60); Est Glom Filt Rate - Afr Amer 68 mL/min (>60); Globulin 4.2 g/dL (2.2-4.2); Glucose 157 mg/dL (74-106); Iron 66 ug/dL (50-170); Iron Binding Capacity,Total 297 ug/dL (250-450); PERCENT IRON SATURATION 22.2 % (15.0-55.0); Potassium 3.8 mmol/L (3.5-5.1); Protein, Total 7.8 g/dL (6.4-8.2); Rheumatoid Factor < 10.0 IU/mL (<15); Sodium Level 139 mmol/L (136-145); Thyroid Stim Hormone (TSH) 3.62 uIU/mL (0.358-3.74)
[2022-03-05 15:07] LABS: Cytoplasmic Ab (C-ANCA) <1:20 titer (Neg:<1:20)
[2022-03-05 15:43] LABS: CCP IgG Antibodies 1 units (0-19); Perinuclear Ab (P-ANCA) <1:20 titer (Neg:<1:20)
[2022-03-05 17:17] LABS: ANTINUCLEAR ANTIBODIES DIRECT Negative (Negative)
== END | disposition home or self-care (01) ==
LOC: LAB 09:52
PROVIDERS: Nurse Practitioner Acute Care; PCP Internal Medicine; Visit Provider Internal Medicine
DX: E11.9 Type 2 diabetes mellitus without complications (principal); D64.9 Anemia, unspecified; E03.9 Hypothyroidism, unspecified; G57.93 Unspecified mononeuropathy of bilateral lower limbs; Z51.81 Encounter for therapeutic drug level monitoring; Z79.899 Other long term (current) drug therapy
CPT/HCPCS: 36415; 80053; 82306; 82607; 83036; 83540; 83550; 84443; 85025; 86038; 86200; 86225; 86235; 86256; 86431

== ENCOUNTER → 2022-03-22 | Outpatient (CLI) | payer OTHER, SELFPAY ==
[2022-03-22 12:30] VITALS: PULSE 108; PULSE 112; PULSE 120; PULSE 86; PULSE 98; O2SAT 87; O2SAT 88; O2SAT 93; O2SAT 97; O2SAT 98
--- NOTE | 2022-03-22 13:00 | CPS ---
Walk was started on room air. Pt was placed on 1 lpm at 2 minutes. Pt was increased to 2 lpm at 3 minutes. Pt required multiple rest periods that involved her sitting in wheel chair that was being pushed behind her. Pt stated that she needed the rests and sitting due to leg pain,foot pain and knee pain. Pt denied any S.O.B. pre walk on room air or at any time during testing.
--- NOTE | 2022-03-23 05:28 | WT_ITS ---
PSN 6 Minute Walk Test 6 Minute Walk Test 6 Minute Walk Test: 6 Minute Walk Test PSN:6-Minute Walk Test Start: 03/22/22 12:56 Freq: Status: Active Protocol: [id number] Document 03/22/22 12:30 [facility] (Rec: 03/22/22 13:06 [facility] [id number]) 6 Minute Walk Test Date Performed 03/22/22 Time Performed 12:30 Height 5 ft 10 in Weight: 161.479 kg Weight in Pounds 356.[address]: Praneeth Assistive device used: Walker Pre-test Oxygen Delivery Method Room Air Pulse Ox (%) 98 Pulse Rate (60-100 beats/min) 86 Dyspnea Rohan Scale (0-10) 0 Exertion Rohan Scale (6-20) 6 1st minute Oxygen Delivery Method Room Air Pulse Ox (%) 93 Pulse Rate (60-100 beats/min) 108 H Dyspnea Rohan Scale (0-10) 0 2nd minute Oxygen Flow Rate (L/min) (L/min) 1 Oxygen Delivery Method Nasal Cannula Pulse Ox (%) 87 Pulse Rate (60-100 beats/min) 120 H 3rd minute Oxygen Flow Rate (L/min) (L/min) 1 Oxygen Delivery Method Nasal Cannula Pulse Ox (%) 88 Pulse Rate (60-100 beats/min) 112 H 4th minute Oxygen Flow Rate (L/min) (L/min) 2 Oxygen Delivery Method Nasal Cannula Pulse Ox (%) 97 Pulse Rate (60-100 beats/min) 112 H Dyspnea Rohan Scale (0-10) 0 Number of Rests Taken 1 5th minute Oxygen Flow Rate (L/min) (L/min) 2 Oxygen Delivery Method Nasal Cannula Number of Rests Taken 1 6th minute Oxygen Flow Rate (L/min) (L/min) 2 Oxygen Delivery Method Nasal Cannula Number of Rests Taken 1 Post-test Oxygen Flow Rate (L/min) (L/min) 2 Oxygen Delivery Method Nasal Cannula Pulse Ox (%) 97 Pulse Rate (60-100 beats/min) 98 Full Laps Walked 2 Partial Lap, Number of Tiles Walked 0 Total Distance Walked (ft) 118 03/22/22 13:00 Cardiopulmonary Services by Claudia Dias was started on room air. Pt was placed on 1 lpm at 2 minutes. Pt was increased to 2 lpm at 3 minutes. Pt required multiple rest periods that involved her sitting in wheel chair that was being pushed behind her. Pt stated that she needed the rests and sitting due to leg pain,foot pain and knee pain. Pt denied any S.O.B. pre walk on room air or at any time during testing. Initialized on 03/22/22 13:00 - END OF NOTE Interpretation Interpretation: Patient was noted to be 98% on room air at rest. However, in the third minute of ambulation desaturated to 88% and had to be placed on supplemental oxygen. The patient required 2 L nasal cannula to maintain saturations throughout testing. There was an element of reflexive tachycardia with a peak heart rate of 120 bpm. In total, the patient traveled 118 feet over the course of 6 minutes on room air with the assistance of a walker and 3 breaks secondary to le g pain. These findings are consistent with a respiratory limitation exercise tolerance. Recommendations Recommendations: The patient requires no supplemental oxygen at rest, but should be using 2 L nasal cannula with any exertion.
== END | disposition home or self-care (01) ==
PROVIDERS: PCP Internal Medicine; Referring Provider Nurse Practitioner Acute Care; Visit Provider Nurse Practitioner Acute Care
DX: R06.00 Dyspnea, unspecified (principal)
CPT/HCPCS: 94618

== ENCOUNTER → 2022-03-29 | Outpatient (CLI) | payer OTHER, SELFPAY ==
--- NOTE | 2022-04-01 16:38 | PFTCOMP ---
COMPLETE PULMONARY FUNCTION TEST INTERPRETATION Brief HPI: Patient is a 62-year-old female, currently under the care of Lian Rizvi, who presents to [facility] for complete pulmonary function tests secondary to diagnosis of dyspnea. Respiratory therapist reports good effort and reproducible results. Patient was unable to complete lung volumes secondary to claustrophobia and testing was completed on 2 L/min. Interpretation: Forced expiration spirometry shows no large airways obstructive ventilatory defect with an FEV1 of 49% predicted. There is significant bronchodilator response by strict ATS criteria. Spirograms are of good quality and plateau normally slowly, indicating slowly emptying areas of the lungs. The respiratory flow volume loop shows a normal pattern. Diffusion capacity by carbon monoxide is decreased at 65% predicted. The airway resistance is not calculated. Compared to previous pulmonary function tests from 08/27/2021, there is been a significant improvement in spirometry and diffusion capacity. Impression: Spirometry suggestive of restrictive lung disease, but lung volumes not obtained. Diffusion capacity is symmetrically reduced, but overall testing is much improved compared to 2021.
== END | disposition home or self-care (01) ==
LOC: PSN 09:36
PROVIDERS: PCP Internal Medicine; Visit Provider Nurse Practitioner Acute Care
DX: R06.00 Dyspnea, unspecified (principal)
CPT/HCPCS: 94060; 94729

== ENCOUNTER → 2022-06-07 | Outpatient (CLI) | payer OTHER, SELFPAY ==
[2022-06-07 10:22] LABS: Absolute Lymphocyte Count 0.91 X10^3/uL (0.83-4.51); Absolute Neutrophil Count 7.1 X10^3/uL (2.0-7.7); Basophil# 0.04 X10^3/uL; Basophil% 0.5 % (0-1); Eosinophil# 0.15 X10^3/uL; Eosinophils% 1.7 % (0-5); Hematocrit 32.7 % (37-47); Hemoglobin 9.6 g/dL (12.0-15.0); Lymphocyte # 0.91 X10^3/ul (0.83-4.51); Lymphocyte % 10.3 % (19-41); Mean Corp Hgb Conc 29.4 g/dL (32-36); Mean Corpuscular Hgb 30.5 pg (27.0-32.0); Mean Corpuscular Volume 103.8 fL (81-99); Mean Platelet Vol. 12.3 fl (6.2-12.0); Monocyte# 0.63 X10^3/uL; Monocyte% 7.1 % (0-10); NRBC Flagged by Analyzer 0 % (0-5); Neutrophil # 7.09 X10^3/uL (2.7-7.7); Neutrophil % 79.8 % (47-70); Platelet Count 127 K/mm3 (150-450); RBC Distribution Width SD 53.6 fl (35.1-43.9); Red Blood Count 3.15 M/mm3 (4.2-5.4); White Blood Count 8.9 K/mm3 (4.4-11.0)
[2022-06-07 10:47] LABS: ALB/GLOB Ratio 0.9 RATIO (0.9-2.4); AST(SGOT) 13 U/L (15-37); Alanine Aminotransfer ALT/SGPT 19 U/L (13-56); Albumin, Serum 3.4 g/dL (3.2-5.0); Alkaline Phosphatase 77 U/L (45-117); Anion Gap 3 (5-15); BUN 17 mg/dL (7-18); Calcium,Total 9.2 mg/dL (8.5-10.1); Chloride 100 mmol/L (98-107); EST Glomerular Filtration Rate 59 mL/min (>60); Est Glom Filt Rate - Afr Amer 72 mL/min (>60); Globulin 3.9 g/dL (2.2-4.2); Glucose 188 mg/dL (74-106); Potassium 4.1 mmol/L (3.5-5.1); Protein, Total 7.3 g/dL (6.4-8.2); Sodium Level 137 mmol/L (136-145); Thyroid Stim Hormone (TSH) 3.51 uIU/mL (0.358-3.74)
[2022-06-07 11:01] LABS: Hemoglobin A1c 5.8 % (3.8-5.6)
== END | disposition home or self-care (01) ==
LOC: LAB 08:47
PROVIDERS: PCP Internal Medicine; Visit Provider Internal Medicine
DX: E03.9 Hypothyroidism, unspecified (principal); Z51.81 Encounter for therapeutic drug level monitoring
CPT/HCPCS: 36415; 80053; 83036; 84443; 85025

== ENCOUNTER → 2022-08-23 | Outpatient (CLI) | payer OTHER, SELFPAY ==
[2022-08-23 11:43] LABS: Hematocrit 32.2 % (37-47); Hemoglobin 9.4 g/dL (12.0-15.0); Mean Corp Hgb Conc 29.2 g/dL (32-36); Mean Corpuscular Hgb 30.6 pg (27.0-32.0); Mean Corpuscular Volume 104.9 fL (81-99); Mean Platelet Vol. 12.1 fl (6.2-12.0); Platelet Count 104 K/mm3 (150-450); RBC Distribution Width CV 14.3 % (11.6-14.6); RBC Distribution Width SD 54.4 fl (35.1-43.9); Red Blood Count 3.07 M/mm3 (4.2-5.4); White Blood Count 5.7 K/mm3 (4.4-11.0)
[2022-08-23 11:57] LABS: Vitamin B12 210 pg/mL (211-911)
[2022-08-23 12:34] LABS: ALB/GLOB Ratio 0.8 RATIO (0.9-2.4); AST(SGOT) 20 U/L (15-37); Alanine Aminotransfer ALT/SGPT 25 U/L (13-56); Albumin, Serum 3.3 g/dL (3.2-5.0); Alkaline Phosphatase 71 U/L (45-117); Anion Gap 4 (5-15); BUN 12 mg/dL (7-18); Calcium,Total 8.8 mg/dL (8.5-10.1); Chloride 99 mmol/L (98-107); EST Glomerular Filtration Rate 59 mL/min (>60); Est Glom Filt Rate - Afr Amer 72 mL/min (>60); Ferritin 51 ng/mL (8-252); Globulin 4.2 g/dL (2.2-4.2); Glucose 267 mg/dL (74-106); Iron 55 ug/dL (50-170); Iron Binding Capacity,Total 344 ug/dL (250-450); Magnesium 2.6 mg/dL (1.6-2.6); Potassium 4.6 mmol/L (3.5-5.1); Protein, Total 7.5 g/dL (6.4-8.2); Sodium Level 136 mmol/L (136-145); Thyroid Stim Hormone (TSH) 5.18 uIU/mL (0.358-3.74)
== END | disposition home or self-care (01) ==
LOC: LAB 09:22
PROVIDERS: PCP Internal Medicine; Referring Provider Internal Medicine; Visit Provider Internal Medicine
DX: I11.0 Hypertensive heart disease with heart failure (principal); I50.9 Heart failure, unspecified; D64.9 Anemia, unspecified; Z79.899 Other long term (current) drug therapy; E03.9 Hypothyroidism, unspecified
CPT/HCPCS: 36415; 80053; 82607; 82728; 82746; 83540; 83550; 83735; 84439; 84443; 84481; 85027

== ENCOUNTER → 2023-01-16 | Outpatient (CLI) | payer OTHER, SELFPAY ==
[2023-01-16 11:38] LABS: Hemoglobin 11.4 g/dL (12.0-15.0); Mean Corp Hgb Conc 30.8 g/dL (32-36); Mean Corpuscular Hgb 29.3 pg (27.0-32.0); Mean Corpuscular Volume 95.1 fL (81-99); Platelet Count 132 K/mm3 (150-450); RBC Distribution Width CV 14.3 % (11.6-14.6); RBC Distribution Width SD 49.9 fl (35.1-43.9); Red Blood Count 3.89 M/mm3 (4.2-5.4); White Blood Count 9.3 K/mm3 (4.4-11.0)
[2023-01-16 11:54] LABS: Hemoglobin A1c 5.6 % (3.8-5.6); Vitamin D,25 Hydroxy 66.3 ng/mL
[2023-01-16 12:00] LABS: ALB/GLOB Ratio 0.8 RATIO (0.9-2.4); AST(SGOT) 17 U/L (15-37); Alanine Aminotransfer ALT/SGPT 24 U/L (13-56); Albumin, Serum 3.5 g/dL (3.2-5.0); Alkaline Phosphatase 78 U/L (45-117); Anion Gap 4 (5-15); BUN 21 mg/dL (7-18); BUN/Creat Ratio 19.8 RATIO (10-20); Calcium,Total 9.1 mg/dL (8.5-10.1); Chloride 100 mmol/L (98-107); Creatinine, Serum 1.06 mg/dL (0.55-1.02); EST Glomerular Filtration Rate 55 mL/min (>60); Est Glom Filt Rate - Afr Amer 67 mL/min (>60); Free T3 2.1 pg/mL (2.18-3.98); Globulin 4.2 g/dL (2.2-4.2); Glucose 124 mg/dL (74-106); Potassium 3.9 mmol/L (3.5-5.1); Protein, Total 7.7 g/dL (6.4-8.2); Sodium Level 135 mmol/L (136-145); T4 Free Direct 1.16 ng/dL (0.76-1.46); Thyroid Stim Hormone (TSH) 3.45 uIU/mL (0.358-3.74)
== END | disposition home or self-care (01) ==
LOC: LAB 08:48
PROVIDERS: PCP Internal Medicine; Referring Provider Internal Medicine; Visit Provider Internal Medicine
DX: E03.9 Hypothyroidism, unspecified (principal); E11.42 Type 2 diabetes mellitus with diabetic polyneuropathy; Z79.4 Long term (current) use of insulin; E55.9 Vitamin D deficiency, unspecified; I10 Essential (primary) hypertension
CPT/HCPCS: 36415; 80053; 82306; 83036; 84439; 84443; 84481; 85027

== ENCOUNTER → 2023-03-20 | Outpatient (CLI) | payer MEDICARE, SELFPAY ==
[2023-03-20 13:35] LABS: Hemoglobin 11.4 g/dL (12.0-15.0); Mean Corpuscular Hgb 29.5 pg (27.0-32.0); Mean Corpuscular Volume 98.2 fL (81-99); Mean Platelet Vol. 12.8 fl (6.2-12.0); Platelet Count 136 K/mm3 (150-450); RBC Distribution Width CV 14.2 % (11.6-14.6); RBC Distribution Width SD 50.9 fl (35.1-43.9); Red Blood Count 3.87 M/mm3 (4.2-5.4); White Blood Count 9.5 K/mm3 (4.4-11.0)
[2023-03-20 13:43] LABS: Anion Gap 2 (5-15); BUN 22 mg/dL (7-18); BUN/Creat Ratio 19.3 RATIO (10-20); Calcium,Total 9.7 mg/dL (8.5-10.1); Chloride 100 mmol/L (98-107); Creatinine, Serum 1.14 mg/dL (0.55-1.02); EST Glomerular Filtration Rate 51 mL/min (>60); Est Glom Filt Rate - Afr Amer 62 mL/min (>60); Glucose 116 mg/dL (74-106); Potassium 4.1 mmol/L (3.5-5.1); Sodium Level 136 mmol/L (136-145)
== END | disposition home or self-care (01) ==
LOC: LAB 12:30
PROVIDERS: PCP Internal Medicine; Visit Provider Internal Medicine
DX: E11.9 Type 2 diabetes mellitus without complications (principal); E87.1 Hypo-osmolality and hyponatremia; N28.9 Disorder of kidney and ureter, unspecified; E61.1 Iron deficiency; D64.9 Anemia, unspecified
CPT/HCPCS: 36415; 80048; 85027

== ENCOUNTER → 2023-04-25 | Outpatient (CLI) | payer MEDICARE, SELFPAY ==
[2023-04-25 12:08] LABS: Absolute Lymphocyte Count 1.09 X10^3/uL (0.83-4.51); Absolute Neutrophil Count 5.6 X10^3/uL (2.0-7.7); Basophil# 0.04 X10^3/uL; Basophil% 0.5 % (0-1); Eosinophil# 0.18 X10^3/uL; Eosinophils% 2.4 % (0-5); Hemoglobin 11.2 g/dL (12.0-15.0); Lymphocyte # 1.09 X10^3/ul (0.83-4.51); Lymphocyte % 14.4 % (19-41); Mean Corp Hgb Conc 31.1 g/dL (32-36); Mean Corpuscular Hgb 30.1 pg (27.0-32.0); Mean Corpuscular Volume 96.8 fL (81-99); Mean Platelet Vol. 12.4 fl (6.2-12.0); Monocyte# 0.58 X10^3/uL; Monocyte% 7.7 % (0-10); NRBC Flagged by Analyzer 0 % (0-5); Neutrophil # 5.62 X10^3/uL (2.7-7.7); Neutrophil % 74.5 % (47-70); Platelet Count 127 K/mm3 (150-450); RBC Distribution Width CV 13.6 % (11.6-14.6); RBC Distribution Width SD 48.2 fl (35.1-43.9); Red Blood Count 3.72 M/mm3 (4.2-5.4); White Blood Count 7.6 K/mm3 (4.4-11.0)
[2023-04-25 12:40] LABS: Vitamin B12 458 pg/mL (211-911)
[2023-04-25 12:45] LABS: Anion Gap 3 (5-15); BUN 18 mg/dL (7-18); BUN/Creat Ratio 18.3 RATIO (10-20); Calcium,Total 9.4 mg/dL (8.5-10.1); Chloride 102 mmol/L (98-107); Cholesterol 144 mg/dL (200); Creatinine, Serum 0.98 mg/dL (0.55-1.02); EST Glomerular Filtration Rate 60 mL/min (>60); Est Glom Filt Rate - Afr Amer 73 mL/min (>60); Ferritin 36 ng/mL (8-252); Glucose 109 mg/dL (74-106); High Density Lipoprotein 31 mg/dL; Iron 57 ug/dL (50-170); Iron Binding Capacity,Total 332 ug/dL (250-450); PERCENT IRON SATURATION 17.2 % (15.0-55.0); Potassium 4.2 mmol/L (3.5-5.1); Sodium Level 140 mmol/L (136-145); Triglycerides 84 mg/dL; Very Low Density Lipoprotein 17 mg/dL (5-40)
[2023-04-25 13:10] LABS: Hemoglobin A1c 5.7 % (3.8-5.6)
== END | disposition home or self-care (01) ==
LOC: LAB 11:50
PROVIDERS: PCP Internal Medicine; Visit Provider Internal Medicine
DX: Z13.220 Encounter for screening for lipoid disorders (principal); E11.42 Type 2 diabetes mellitus with diabetic polyneuropathy; E11.22 Type 2 diabetes mellitus with diabetic chronic kidney disease; E11.65 Type 2 diabetes mellitus with hyperglycemia; Z79.4 Long term (current) use of insulin; N18.31 Chronic kidney disease, stage 3a; D64.9 Anemia, unspecified; Z51.81 Encounter for therapeutic drug level monitoring
CPT/HCPCS: 36415; 80048; 80061; 82607; 82728; 83036; 83540; 83550; 85025

== ENCOUNTER → 2023-06-24 | Outpatient (CLI) | payer MEDICARE, SELFPAY ==
[2023-06-24 11:26] LABS: Absolute Lymphocyte Count 1.14 X10^3/uL (0.83-4.51); Absolute Neutrophil Count 5.4 X10^3/uL (2.0-7.7); Basophil# 0.03 X10^3/uL; Basophil% 0.4 % (0-1); Eosinophil# 0.18 X10^3/uL; Eosinophils% 2.5 % (0-5); Hematocrit 37.8 % (37-47); Hemoglobin 11.7 g/dL (12.0-15.0); Lymphocyte # 1.14 X10^3/ul (0.83-4.51); Lymphocyte % 15.6 % (19-41); Mean Corpuscular Hgb 30.3 pg (27.0-32.0); Mean Corpuscular Volume 97.9 fL (81-99); Mean Platelet Vol. 12.3 fl (6.2-12.0); Monocyte# 0.54 X10^3/uL; Monocyte% 7.4 % (0-10); NRBC Flagged by Analyzer 0 % (0-5); Neutrophil % 73.6 % (47-70); Platelet Count 115 K/mm3 (150-450); RBC Distribution Width CV 13.5 % (11.6-14.6); RBC Distribution Width SD 47.7 fl (35.1-43.9); Red Blood Count 3.86 M/mm3 (4.2-5.4); White Blood Count 7.3 K/mm3 (4.4-11.0)
[2023-06-24 11:41] LABS: ALB/GLOB Ratio 0.9 RATIO (0.9-2.4); AST(SGOT) 17 U/L (15-37); Alanine Aminotransfer ALT/SGPT 22 U/L (13-56); Albumin, Serum 3.7 g/dL (3.2-5.0); Alkaline Phosphatase 78 U/L (45-117); Anion Gap 4 (5-15); BUN 14 mg/dL (7-18); BUN/Creat Ratio 13.5 RATIO (10-20); Calcium,Total 9.5 mg/dL (8.5-10.1); Chloride 102 mmol/L (98-107); Cholesterol 169 mg/dL (200); Creatinine, Serum 1.04 mg/dL (0.55-1.02); EST Glomerular Filtration Rate 57 mL/min (>60); Est Glom Filt Rate - Afr Amer 68 mL/min (>60); Ferritin 48 ng/mL (8-252); Glucose 110 mg/dL (74-106); High Density Lipoprotein 28 mg/dL; Iron 49 ug/dL (50-170); Iron Binding Capacity,Total 315 ug/dL (250-450); Potassium 4.7 mmol/L (3.5-5.1); Protein, Total 7.7 g/dL (6.4-8.2); Sodium Level 138 mmol/L (136-145); Triglycerides 159 mg/dL; Very Low Density Lipoprotein 32 mg/dL (5-40)
[2023-06-24 11:42] LABS: BNP,B-Type NATRIURETIC PEPTIDE 24.1 pg/mL (0-100)
[2023-06-24 11:43] LABS: Vitamin B12 566 pg/mL (211-911)
[2023-06-24 11:50] LABS: Microalbumin,Random Urine 5.6 mg/L (NO RANGE EST.); Microalbumin:Creatinine Ratio 9.2 mg/g CRE (<30 mg/g CRE)
[2023-06-24 12:14] LABS: Hemoglobin A1c 5.6 % (3.8-5.6)
== END | disposition home or self-care (01) ==
LOC: LAB 09:03
PROVIDERS: PCP Internal Medicine; Visit Provider Internal Medicine
DX: D64.9 Anemia, unspecified (principal); I50.33 Acute on chronic diastolic (congestive) heart failure; E11.42 Type 2 diabetes mellitus with diabetic polyneuropathy; Z79.4 Long term (current) use of insulin; E11.65 Type 2 diabetes mellitus with hyperglycemia; E11.22 Type 2 diabetes mellitus with diabetic chronic kidney disease; N18.31 Chronic kidney disease, stage 3a; Z13.220 Encounter for screening for lipoid disorders; Z51.81 Encounter for therapeutic drug level monitoring; E61.1 Iron deficiency
CPT/HCPCS: 36415; 80053; 80061; 82043; 82570; 82607; 82728; 83036; 83540; 83550; 83880; 85025

== ENCOUNTER → 2023-08-15 | Outpatient (CLI) | payer MEDICARE, SELFPAY ==
[2023-08-15 10:28] LABS: Absolute Lymphocyte Count 1.23 X10^3/uL (0.83-4.51); Absolute Neutrophil Count 4.7 X10^3/uL (2.0-7.7); Basophil# 0.06 X10^3/uL; Basophil% 0.9 % (0-1); Eosinophil# 0.17 X10^3/uL; Eosinophils% 2.5 % (0-5); Hematocrit 37.1 % (37-47); Hemoglobin 11.2 g/dL (12.0-15.0); Lymphocyte # 1.23 X10^3/ul (0.83-4.51); Mean Corp Hgb Conc 30.2 g/dL (32-36); Mean Corpuscular Hgb 29.7 pg (27.0-32.0); Mean Corpuscular Volume 98.4 fL (81-99); Mean Platelet Vol. 12.6 fl (6.2-12.0); Monocyte# 0.61 X10^3/uL; Monocyte% 8.9 % (0-10); NRBC Flagged by Analyzer 0 % (0-5); Neutrophil # 4.72 X10^3/uL (2.7-7.7); Neutrophil % 69.3 % (47-70); Platelet Count 120 K/mm3 (150-450); RBC Distribution Width CV 13.6 % (11.6-14.6); Red Blood Count 3.77 M/mm3 (4.2-5.4); White Blood Count 6.8 K/mm3 (4.4-11.0)
[2023-08-15 11:17] LABS: ALB/GLOB Ratio 0.9 RATIO (0.9-2.4); AST(SGOT) 17 U/L (15-37); Alanine Aminotransfer ALT/SGPT 21 U/L (13-56); Albumin, Serum 3.5 g/dL (3.2-5.0); Alkaline Phosphatase 76 U/L (45-117); Anion Gap 6 (5-15); BUN 20 mg/dL (7-18); BUN/Creat Ratio 20.8 RATIO (10-20); Calcium,Total 9.4 mg/dL (8.5-10.1); Chloride 101 mmol/L (98-107); Creatinine, Serum 0.96 mg/dL (0.55-1.02); EST Glomerular Filtration Rate 62 mL/min (>60); Est Glom Filt Rate - Afr Amer 75 mL/min (>60); Ferritin 40 ng/mL (8-252); Globulin 3.7 g/dL (2.2-4.2); Glucose 121 mg/dL (74-106); Potassium 4.4 mmol/L (3.5-5.1); Protein, Total 7.2 g/dL (6.4-8.2); Sodium Level 139 mmol/L (136-145)
== END | disposition home or self-care (01) ==
LOC: LAB 08:51
PROVIDERS: PCP Internal Medicine; Visit Provider Internal Medicine
DX: D69.6 Thrombocytopenia, unspecified (principal); E61.1 Iron deficiency; Z51.81 Encounter for therapeutic drug level monitoring
CPT/HCPCS: 36415; 80053; 82728; 85025

== ENCOUNTER → 2023-11-07 | Outpatient (CLI) | payer MEDICARE, SELFPAY ==
[2023-11-07 11:26] LABS: Absolute Lymphocyte Count 1.07 X10^3/uL (0.83-4.51); Absolute Neutrophil Count 5.5 X10^3/uL (2.0-7.7); Basophil# 0.05 X10^3/uL; Basophil% 0.7 % (0-1); Eosinophil# 0.17 X10^3/uL; Eosinophils% 2.3 % (0-5); Hematocrit 37.2 % (37-47); Hemoglobin 11.5 g/dL (12.0-15.0); Lymphocyte # 1.07 X10^3/ul (0.83-4.51); Lymphocyte % 14.5 % (19-41); Mean Corp Hgb Conc 30.9 g/dL (32-36); Mean Corpuscular Hgb 30.3 pg (27.0-32.0); Mean Corpuscular Volume 97.9 fL (81-99); Mean Platelet Vol. 12.5 fl (6.2-12.0); Monocyte# 0.58 X10^3/uL; Monocyte% 7.8 % (0-10); NRBC Flagged by Analyzer 0 % (0-5); Neutrophil # 5.48 X10^3/uL (2.7-7.7); Neutrophil % 74.2 % (47-70); Platelet Count 118 K/mm3 (150-450); RBC Distribution Width CV 13.4 % (11.6-14.6); RBC Distribution Width SD 48.6 fl (35.1-43.9); White Blood Count 7.4 K/mm3 (4.4-11.0)
[2023-11-07 11:59] LABS: Vitamin B12 552 pg/mL (211-911); Vitamin D,25 Hydroxy 68.3 ng/mL
[2023-11-07 12:05] LABS: ALB/GLOB Ratio 0.9 RATIO (0.9-2.4); AST(SGOT) 19 U/L (15-37); Alanine Aminotransfer ALT/SGPT 29 U/L (13-56); Albumin, Serum 3.6 g/dL (3.2-5.0); Alkaline Phosphatase 86 U/L (45-117); Anion Gap 8 (5-15); BUN 21 mg/dL (7-18); BUN/Creat Ratio 19.3 RATIO (10-20); Calcium,Total 9.2 mg/dL (8.5-10.1); Chloride 103 mmol/L (98-107); Cholesterol 149 mg/dL (200); Creatinine, Serum 1.09 mg/dL (0.55-1.02); EST Glomerular Filtration Rate 53 mL/min (>60); Est Glom Filt Rate - Afr Amer 65 mL/min (>60); Ferritin 42 ng/mL (8-252); Globulin 4.1 g/dL (2.2-4.2); Glucose 137 mg/dL (74-106); High Density Lipoprotein 33 mg/dL; Iron 66 ug/dL (50-170); Iron Binding Capacity,Total 310 ug/dL (250-450); Magnesium 2.2 mg/dL (1.6-2.6); PERCENT IRON SATURATION 21.3 % (15.0-55.0); Potassium 4.2 mmol/L (3.5-5.1); Protein, Total 7.7 g/dL (6.4-8.2); Sodium Level 139 mmol/L (136-145); Triglycerides 146 mg/dL; Very Low Density Lipoprotein 29 mg/dL (5-40)
[2023-11-07 12:15] LABS: Hemoglobin A1c 5.9 % (3.8-5.6)
== END | disposition home or self-care (01) ==
LOC: LAB 08:46
PROVIDERS: PCP Internal Medicine; Visit Provider Internal Medicine
DX: Z51.81 Encounter for therapeutic drug level monitoring (principal); E11.42 Type 2 diabetes mellitus with diabetic polyneuropathy; Z79.4 Long term (current) use of insulin; E11.22 Type 2 diabetes mellitus with diabetic chronic kidney disease; N18.31 Chronic kidney disease, stage 3a; E55.9 Vitamin D deficiency, unspecified; E03.9 Hypothyroidism, unspecified; D63.1 Anemia in chronic kidney disease
CPT/HCPCS: 36415; 80053; 80061; 82306; 82607; 82728; 83036; 83540; 83550; 83735; 84443; 85025

== ENCOUNTER → 2024-02-13 | Outpatient (CLI) | payer MEDICARE, SELFPAY ==
[2024-02-13 11:11] LABS: Absolute Lymphocyte Count 0.96 X10^3/uL (0.83-4.51); Absolute Neutrophil Count 4.7 X10^3/uL (2.0-7.7); Basophil# 0.03 X10^3/uL; Basophil% 0.5 % (0-1); Eosinophil# 0.17 X10^3/uL; Eosinophils% 2.6 % (0-5); Hematocrit 37.7 % (37-47); Hemoglobin 11.7 g/dL (12.0-15.0); Lymphocyte # 0.96 X10^3/ul (0.83-4.51); Lymphocyte % 14.9 % (19-41); Mean Corpuscular Hgb 30.2 pg (27.0-32.0); Mean Corpuscular Volume 97.4 fL (81-99); Mean Platelet Vol. 12.3 fl (6.2-12.0); Monocyte# 0.57 X10^3/uL; Monocyte% 8.8 % (0-10); NRBC Flagged by Analyzer 0 % (0-5); Neutrophil # 4.69 X10^3/uL (2.7-7.7); Neutrophil % 72.7 % (47-70); Platelet Count 108 K/mm3 (150-450); RBC Distribution Width CV 13.3 % (11.6-14.6); RBC Distribution Width SD 47.2 fl (35.1-43.9); Red Blood Count 3.87 M/mm3 (4.2-5.4); White Blood Count 6.5 K/mm3 (4.4-11.0)
[2024-02-13 11:32] LABS: Hemoglobin A1c 6.1 % (3.8-5.6)
[2024-02-13 11:48] LABS: Vitamin B12 666 pg/mL (211-911); Vitamin D,25 Hydroxy 87.2 ng/mL
[2024-02-13 12:08] LABS: ALB/GLOB Ratio 0.9 RATIO (0.9-2.4); AST(SGOT) 22 U/L (15-37); Alanine Aminotransfer ALT/SGPT 29 U/L (13-56); Albumin, Serum 3.5 g/dL (3.2-5.0); Alkaline Phosphatase 74 U/L (45-117); Anion Gap 6 (5-15); BUN 19 mg/dL (7-18); BUN/Creat Ratio 20.5 RATIO (10-20); Calcium,Total 9.3 mg/dL (8.5-10.1); Chloride 104 mmol/L (98-107); Creatinine, Serum 0.92 mg/dL (0.55-1.02); EST Glomerular Filtration Rate 65 mL/min (>60); Est Glom Filt Rate - Afr Amer 78 mL/min (>60); Ferritin 49 ng/mL (8-252); Globulin 3.9 g/dL (2.2-4.2); Glucose 158 mg/dL (74-106); Iron 55 ug/dL (50-170); Iron Binding Capacity,Total 303 ug/dL (250-450); Potassium 4.1 mmol/L (3.5-5.1); Protein, Total 7.4 g/dL (6.4-8.2); Sodium Level 139 mmol/L (136-145)
== END | disposition home or self-care (01) ==
LOC: LAB 07:59
PROVIDERS: PCP Internal Medicine; Visit Provider Internal Medicine
DX: Z51.81 Encounter for therapeutic drug level monitoring (principal); E11.42 Type 2 diabetes mellitus with diabetic polyneuropathy; E03.9 Hypothyroidism, unspecified; E55.9 Vitamin D deficiency, unspecified; E61.1 Iron deficiency; Z74.09 Other reduced mobility
CPT/HCPCS: 36415; 80053; 82306; 82607; 82728; 83036; 83540; 83550; 84443; 85025

== ENCOUNTER → 2024-02-16 | Outpatient (CLI) | payer MEDICARE, SELFPAY ==
[2024-02-16 11:51] LABS: Microalbumin:Creatinine Ratio 5.2 mg/g CRE (<30 mg/g CRE)
== END | disposition home or self-care (01) ==
LOC: LAB 09:54
PROVIDERS: PCP Internal Medicine; Visit Provider Internal Medicine
DX: E11.42 Type 2 diabetes mellitus with diabetic polyneuropathy (principal); Z79.4 Long term (current) use of insulin
CPT/HCPCS: 82043; 82570

== ENCOUNTER → 2024-05-13 | Outpatient (CLI) | payer MEDICARE, SELFPAY ==
[2024-05-13 11:14] LABS: Absolute Lymphocyte Count 0.99 X10^3/uL (0.83-4.51); Absolute Neutrophil Count 5.2 X10^3/uL (2.0-7.7); Basophil# 0.05 X10^3/uL; Basophil% 0.7 % (0-1); Eosinophil# 0.14 X10^3/uL; Hematocrit 37.6 % (37-47); Hemoglobin 11.9 g/dL (12.0-15.0); Lymphocyte # 0.99 X10^3/ul (0.83-4.51); Mean Corp Hgb Conc 31.6 g/dL (32-36); Mean Corpuscular Hgb 30.4 pg (27.0-32.0); Mean Corpuscular Volume 96.2 fL (81-99); Monocyte% 8.5 % (0-10); NRBC Flagged by Analyzer 0 % (0-5); Neutrophil # 5.21 X10^3/uL (2.7-7.7); Neutrophil % 73.5 % (47-70); Platelet Count 120 K/mm3 (150-450); RBC Distribution Width CV 14.1 % (11.6-14.6); RBC Distribution Width SD 49.8 fl (35.1-43.9); Red Blood Count 3.91 M/mm3 (4.2-5.4); White Blood Count 7.1 K/mm3 (4.4-11.0)
[2024-05-13 12:52] LABS: ALB/GLOB Ratio 1.4 RATIO (0.9-2.4); AST(SGOT) 24 U/L (<=31); Alanine Aminotransfer ALT/SGPT 16 U/L (<=34); Alkaline Phosphatase 66 U/L (35-104); Anion Gap 10 (5-15); BUN 21 mg/dL (4-19); BUN/Creat Ratio 23.5 RATIO (10-20); Calcium,Total 9.1 mg/dL (7.6-11.0); Carbon Dioxide 29.3 mmol/L (21.0-32.0); Chloride 100 mmol/L (98-108); EST Glomerular Filtration Rate 71 (>60); Globulin 2.8 g/dL (2.2-4.2); Glucose 132 mg/dL (70-99); Iron 73 ug/dL (50-170); Iron Binding Capacity,Total 293 ug/dL (250-450); Iron Binding Capacity,Unsat 220 ug/dL (228-428); Potassium 4.5 mmol/L (3.3-5.1); Protein, Total 6.7 g/dL (5.9-8.4); Sodium Level 139 mmol/L (133-145); Total Bilirubin 0.47 mg/dL (0.00-1.30)
[2024-05-13 13:05] LABS: Ferritin 72 ng/mL (22-378); Vitamin B12 734 pg/mL (180-914); Vitamin D,25 Hydroxy 82.8 ng/mL (30-100)
[2024-05-13 19:05] LABS: Hemoglobin A1c 6.1 % (<=5.6)
== END | disposition home or self-care (01) ==
LOC: LAB 08:42
PROVIDERS: PCP Internal Medicine; Visit Provider Internal Medicine
DX: Z51.81 Encounter for therapeutic drug level monitoring (principal); E11.42 Type 2 diabetes mellitus with diabetic polyneuropathy; E61.1 Iron deficiency; E03.9 Hypothyroidism, unspecified; E55.9 Vitamin D deficiency, unspecified; Z74.09 Other reduced mobility
CPT/HCPCS: 36415; 80053; 82306; 82607; 82728; 83036; 83540; 83550; 84443; 85025

== ENCOUNTER → 2024-08-13 | Outpatient (CLI) | payer MEDICARE, SELFPAY ==
[2024-08-13 11:08] LABS: Absolute Lymphocyte Count 0.83 X10^3/uL (0.83-4.51); Absolute Neutrophil Count 4.7 X10^3/uL (2.0-7.7); Basophil# 0.05 X10^3/uL; Basophil% 0.8 % (0-1); Eosinophil# 0.16 X10^3/uL; Eosinophils% 2.6 % (0-5); Hematocrit 39.5 % (37-47); Lymphocyte # 0.83 X10^3/ul (0.83-4.51); Lymphocyte % 13.3 % (19-41); Mean Corp Hgb Conc 30.4 g/dL (32-36); Mean Corpuscular Hgb 29.9 pg (27.0-32.0); Mean Corpuscular Volume 98.5 fL (81-99); Monocyte# 0.52 X10^3/uL; Monocyte% 8.3 % (0-10); NRBC Flagged by Analyzer 0 % (0-5); Neutrophil # 4.65 X10^3/uL (2.7-7.7); Neutrophil % 74.2 % (47-70); Platelet Count 106 K/mm3 (150-450); RBC Distribution Width CV 13.2 % (11.6-14.6); RBC Distribution Width SD 47.1 fl (35.1-43.9); Red Blood Count 4.01 M/mm3 (4.2-5.4); White Blood Count 6.3 K/mm3 (4.4-11.0)
[2024-08-13 11:44] LABS: ALB/GLOB Ratio 1.2 RATIO (0.9-2.4); AST(SGOT) 22 U/L (<=31); Alanine Aminotransfer ALT/SGPT 19 U/L (<=34); Albumin, Serum 3.9 g/dL (3.4-4.8); Alkaline Phosphatase 70 U/L (35-104); Anion Gap 9 (5-15); BUN 21 mg/dL (4-19); BUN/Creat Ratio 19.5 RATIO (10-20); Calcium,Total 9.3 mg/dL (7.6-11.0); Carbon Dioxide 30.1 mmol/L (21.0-32.0); Chloride 101 mmol/L (98-108); Creatinine, Serum 1.05 mg/dL (0.70-1.20); EST Glomerular Filtration Rate 59 (>60); Ferritin 65 ng/mL (22-378); Globulin 3.2 g/dL (2.2-4.2); Glucose 147 mg/dL (70-99); Potassium 4.5 mmol/L (3.3-5.1); Protein, Total 7.2 g/dL (5.9-8.4); Sodium Level 141 mmol/L (133-145); Total Bilirubin 0.41 mg/dL (0.00-1.30); Vitamin B12 761 pg/mL (180-914); Vitamin D,25 Hydroxy 77.2 ng/mL (30-100)
[2024-08-13 12:03] LABS: Iron 64 ug/dL (50-170); Iron Binding Capacity,Total 268 ug/dL (250-450); Iron Binding Capacity,Unsat 204 ug/dL (228-428)
[2024-08-13 12:13] LABS: Hemoglobin A1c 6.4 % (<=5.6)
== END | disposition home or self-care (01) ==
LOC: LAB 09:17
PROVIDERS: PCP Internal Medicine; Visit Provider Internal Medicine
DX: Z51.81 Encounter for therapeutic drug level monitoring (principal); E11.42 Type 2 diabetes mellitus with diabetic polyneuropathy; E03.9 Hypothyroidism, unspecified; E55.9 Vitamin D deficiency, unspecified; E61.1 Iron deficiency; Z74.09 Other reduced mobility
CPT/HCPCS: 36415; 80053; 82306; 82607; 82728; 83036; 83540; 83550; 84443; 85025

== ENCOUNTER → 2024-12-13 | Outpatient (CLI) | payer MEDICARE, SELFPAY ==
[2024-12-13 10:56] LABS: Hematocrit 37.8 % (37-47); Hemoglobin 11.7 g/dL (12.0-15.0); Immature Granulocytes Count 0.030 X10^3/uL (0.0-0.0); Mean Corp Hgb Conc 31.0 g/dL (32-36); Mean Corpuscular Volume 96.2 fL (81-99); Mean Platelet Vol. 12.3 fl (6.2-12.0); NRBC Flagged by Analyzer 0 % (0-5); Platelet Count 102 K/mm3 (150-450); RBC Distribution Width CV 13.2 % (11.6-14.6); RBC Distribution Width SD 46.6 fl (35.1-43.9); Red Blood Count 3.93 M/mm3 (4.2-5.4); White Blood Count 6.7 K/mm3 (4.4-11.0)
[2024-12-13 12:09] LABS: AST(SGOT) 25 U/L (<=31); Alanine Aminotransfer ALT/SGPT 21 U/L (<=34); Albumin, Serum 4.1 g/dL (3.4-4.8); Alkaline Phosphatase 73 U/L (35-104); Anion Gap 10 (5-15); BUN 20 mg/dL (4-19); BUN/Creat Ratio 21.3 RATIO (10-20); Calcium,Total 9.4 mg/dL (7.6-11.0); Carbon Dioxide 29.3 mmol/L (21.0-32.0); Chloride 99 mmol/L (98-108); Ferritin 86 ng/mL (22-378); Globulin 3.2 g/dL (2.2-4.2); Glucose 165 mg/dL (70-99); Iron 78 ug/dL (50-170); Iron Binding Capacity,Total 286 ug/dL (250-450); Iron Binding Capacity,Unsat 208 ug/dL (228-428); Potassium 4.2 mmol/L (3.3-5.1); Vitamin B12 701 pg/mL (180-914); Vitamin D,25 Hydroxy 83.3 ng/mL (30-100)
== END | disposition home or self-care (01) ==
LOC: LAB 08:36
PROVIDERS: PCP Internal Medicine; Visit Provider Internal Medicine
DX: E03.9 Hypothyroidism, unspecified (principal); E11.42 Type 2 diabetes mellitus with diabetic polyneuropathy; E55.9 Vitamin D deficiency, unspecified; E61.1 Iron deficiency; Z74.09 Other reduced mobility; Z51.81 Encounter for therapeutic drug level monitoring
CPT/HCPCS: 36415; 80053; 82306; 82607; 82728; 83036; 83540; 83550; 84443; 85025